=== PATIENT | female | born 1955 | race Caucasian/White ===

== ENCOUNTER 2018-11-06 13:55 | Emergency (ER) | payer MEDICAID ==
[~2018-11-06] VITALS: Ht 147.3 cm; Wt 73.0 kg
[~2018-11-06 13:55] MED LIST: ATOR20TA PO; BENA40TA73 PO; CINN500C15 PO; CLOP75TA15 PO; DILT120C88 PO; FENO160T PO; GLIP2.5T3 PO; INSU100V12 SQ; LIDOcaine 1% W/epiNEPHrine 1:100,000 20ml vial ONE; LOSA25TA96 PO; METF500T PO; METO100T7 PO; MULT1TAB74 PO; ROPI1TAB2 PO; ROPI1TAB4 PO; SYN0.025T PO; THALITONE PO; TRAM50TA2 PO; VENL75CA55 PO
[2018-11-06] MEDS ORDERED: DOXYCYCLINE 100MG CAPSULE PO STA (14:33)
[2018-11-06] MEDS ORDERED: ondansetron 4mg rapidly disintigrating tab PO ONE (14:35)
[2018-11-06 15:18] VITALS: BP 136/81
[2018-11-06] MEDS ORDERED: bacitracin 15gm ointment TP ONE (15:50)
[2018-11-06] MEDS ORDERED: DOXY100C43 PO (16:05)
[2018-11-06] MEDS ORDERED: ONDA8TAB6 PO (16:05)
== END 2018-11-06 16:18 | disposition home or self-care (01) ==
LOC: ER 13:56
DX: L08.89 Other specified local infections of the skin and subcutaneous tissue (principal); M79.674 Pain in right toe(s); I10 Essential (primary) hypertension; J44.9 Chronic obstructive pulmonary disease, unspecified; E11.9 Type 2 diabetes mellitus without complications; E03.9 Hypothyroidism, unspecified; M10.9 Gout, unspecified; Z86.73 Personal history of transient ischemic attack (TIA), and cerebral infarction without residual deficits; Z90.89 Acquired absence of other organs; Z88.2 Allergy status to sulfonamides; Z79.899 Other long term (current) drug therapy; Z79.4 Long term (current) use of insulin
CPT/HCPCS: 64450; 82948; 87070; 87077; 87186; 99284

== ENCOUNTER 2018-11-24 15:47 | Inpatient (IN) | payer MEDICAID ==
[~2018-11-24] VITALS: Ht 147.3 cm; Wt 72.3 kg
[~2018-11-24 15:47] MED LIST changes: -LIDOcaine 1% W/epiNEPHrine 1:100,000 20ml vial ONE; +ONDA8TAB6 PO
[2018-11-24 17:23] LABS: CLARITY,URINE SLIGHTLY CLOUDY (Clear); COLOR,URINE YELLOW (Yellow); GLUCOSE, URINE 500 mg/dl (Neg); KETONES,URINE NEGATIVE (Neg); LEUKOCYTE ESTERASE ,URINE NEGATIVE (Neg); NITRITES, URINE NEGATIVE (Neg); OCCULT BLOOD,URINE MODERATE (Neg); PROTEIN,URINE 100 mg/dl (Neg); UROBILINOGEN,URINE 0.2 E.U/dL (0.2-1.0)
[2018-11-24 17:24] LABS: UA COLLECTION TYPE CLN CATCH MIDSTREAM
[2018-11-24 17:36] LABS: BACTERIA,URINE FEW /HPF (Neg); SQUAMOUS EPITHELIAL CELL,UR MODERATE /LPF (FEW)
[2018-11-24 17:37] LABS: WBC CLUMPS,URINE FEW /HPF (NEGATIVE)
[2018-11-24 17:52] LABS: BASOPHILS % (AUTO) 0.6 % (0-1); EOSINOPHILS # (AUTO) 0.1 X10'3 (0-0.9); EOSINOPHILS % (AUTO) 1.2 % (0-6); HEMATOCRIT 37.5 % (35.0-45.0); HEMOGLOBIN 12.7 g/dl (12.0-16.0); LYMPHOCYTES # (AUTO) 2.6 X10'3 (1.1-4.8); LYMPHOCYTES % (AUTO) 29.8 % (21-51); MEAN CORPUSCULAR HEMOGLOBIN 31.7 PG (27.0-31.0); MEAN CORPUSCULAR VOLUME 93.3 FL (78-98); MEAN PLATELET VOLUME 9.1 FL (7.4-10.4); MONOCYTES # (AUTO) 0.5 X10'3 (0-0.9); MONOCYTES % (AUTO) 5.4 % (2-12); NEUTROPHILS # (AUTO) 5.5 X10'3 (1.8-7.7); PLATELET COUNT 234 X10'3 (140-440); RED BLOOD COUNT 4.02 X10'6 (4.20-5.60); RED CELL DISTRIBUTION WIDTH 13.7 % (11.5-14.5); WHITE BLOOD COUNT 8.7 X10'3 (4.5-11.0)
[2018-11-24 18:03] LABS: PARTIAL THROMBOPLASTIN TIME 24 SECONDS (22-32)
[2018-11-24 18:09] LABS: ALANINE AMINOTRANSFERASE 22 U/L (12-78); ALBUMIN 3.1 G/DL (3.4-5.0); ALBUMIN/GLOBULIN RATIO 0.9 (1.1-1.5); ALKALINE PHOSPHATASE 80 IU/L (46-116); ANION GAP 11 (8-16); ASPARTATE AMINO TRANSFERASE 13 U/L (10-37); BILIRUBIN,TOTAL 0.2 MG/DL (0.1-1.0); BLOOD UREA NITROGEN 40 MG/DL (7-18); C-REACTIVE PROTEIN 0.75 MG/DL (0.0-0.5); CALCIUM 10.2 MG/DL (8.5-10.1); CHLORIDE 108 MMOL/L (99-107); GLUCOSE 238 MG/DL (70-104); MAGNESIUM 1.9 MG/DL (1.5-2.4); POTASSIUM 4.3 MMOL/L (3.5-5.1); SODIUM 142 MMOL/L (135-145); TOTAL CARBON DIOXIDE 22.9 MMOL/L (24-32); TOTAL PROTEIN 6.5 G/DL (6.4-8.2); eGFR 19 ML/MIN
[2018-11-24] MEDS ORDERED: METO100T7 PO (19:17)
[2018-11-24] MEDS ORDERED: FENO160T9 PO (19:17)
[2018-11-24] MEDS ORDERED: GLIP5TAB13 PO (19:17)
[2018-11-24] MEDS ORDERED: PREG150C PO (19:17)
[2018-11-24] MEDS ORDERED: LIRA0.6P SQ (19:17)
[2018-11-24] MEDS ORDERED: CLOP75TA15 PO (19:17)
[2018-11-24] MEDS ORDERED: ALEN70TA60 PO (19:17)
[2018-11-24] MEDS ORDERED: LOSA25TA96 PO (19:17)
[2018-11-24] MEDS ORDERED: ATOR40TA PO (19:22)
[2018-11-24] MEDS ORDERED: LEVO25TA2 PO (19:22)
[2018-11-24] MEDS ORDERED: VENL75CA55 PO (19:22)
[2018-11-24] MEDS ORDERED: vancomycin/NS 1 GM ADD-VANTAGE 250 ML IV ONE (19:30)
[2018-11-24] MEDS ORDERED: piperacillin/tazo 3.375gm/50ml 50 ML IV ONE (19:30)
[2018-11-24] MEDS ORDERED: VENL75CA61 PO (19:31)
[2018-11-24] MEDS ORDERED: ondansetron/PF 4mg/2ml inj IV PRN (20:00)
[2018-11-24] MEDS ORDERED: magnesium hydroxide 30ml (MOM) UD suspension PO PRN (20:00)
[2018-11-24] MEDS ORDERED: MESSAGE TO PHARMACY PO ONE (20:00)
[2018-11-24] MEDS ORDERED: mag hydrox/Alum hydrox/simeth 30ml oral suspension PO PRN (20:00)
[2018-11-24] MEDS ORDERED: dextrose ORAL solution 15 GM/59 ML bottle PO PRN ×2 (20:00)
[2018-11-24] MEDS ORDERED: glucagon, human recombinant 1mg kit SUBCUT PRN (20:00)
[2018-11-24] MEDS ORDERED: morphine 2 MG/ML inj. syringe IV PRN ×2 (20:00)
[2018-11-24] MEDS ORDERED: acetaminophen 325mg tablet PO PRN (20:00)
[2018-11-24] MEDS ORDERED: dextrose 50%-water 50ml dispensing syringe IV PRN ×2 (20:00)
[2018-11-24 20:23] LABS: HEMOGLOBIN A1C 9.5 % (4.5-6.2)
[2018-11-24] MEDS: normal saline 1000ml 1,000 ML IV SCH (20:34)
[2018-11-24] MEDS: heparin, porcine 5000 units/ml vial SQ SCH (20:44)
[2018-11-24] MEDS: HYDROcodone/acetaminophen 10/325mg tab PO PRN (20:45)
[2018-11-24] MEDS: insulin glargine (Lantus) pen - multi-dose SQ SCH (21:00)
--- NOTE | 2018-11-24 21:50 | NUR ---
I have received report from Rosa ESPINOZA and had the opportunity to ask questions and assume patient care.
[2018-11-24 21:55] VITALS: BP 146/72
[2018-11-25 06:14] LABS: BASOPHILS % (AUTO) 0.4 % (0-1); EOSINOPHILS # (AUTO) 0.1 X10'3 (0-0.9); EOSINOPHILS % (AUTO) 1.8 % (0-6); HEMATOCRIT 36.7 % (35.0-45.0); HEMOGLOBIN 12.5 g/dl (12.0-16.0); LYMPHOCYTES # (AUTO) 2.3 X10'3 (1.1-4.8); LYMPHOCYTES % (AUTO) 36.1 % (21-51); MEAN CORPUSCULAR HEMOGLOBIN 32.1 PG (27.0-31.0); MEAN CORPUSCULAR VOLUME 94.2 FL (78-98); MEAN PLATELET VOLUME 9.2 FL (7.4-10.4); MONOCYTES # (AUTO) 0.4 X10'3 (0-0.9); MONOCYTES % (AUTO) 6.5 % (2-12); NEUTROPHILS # (AUTO) 3.5 X10'3 (1.8-7.7); NEUTROPHILS % (AUTO) 55.2 % (42-75); PLATELET COUNT 202 X10'3 (140-440); RED BLOOD COUNT 3.89 X10'6 (4.20-5.60); RED CELL DISTRIBUTION WIDTH 13.8 % (11.5-14.5); WHITE BLOOD COUNT 6.3 X10'3 (4.5-11.0)
--- NOTE | 2018-11-25 06:20 | NUR ---
Problems reprioritized. Patient report given, questions answered & plan of care reviewed with Cecilia ESPINOZA.
[2018-11-25 06:43] LABS: ALANINE AMINOTRANSFERASE 19 U/L (12-78); ALBUMIN 2.7 G/DL (3.4-5.0); ALBUMIN/GLOBULIN RATIO 0.8 (1.1-1.5); ALKALINE PHOSPHATASE 70 IU/L (46-116); ANION GAP 9 (8-16); ASPARTATE AMINO TRANSFERASE 18 U/L (10-37); BILIRUBIN,TOTAL 0.3 MG/DL (0.1-1.0); BLOOD UREA NITROGEN 37 MG/DL (7-18); BUN/CREATININE RATIO 18.7 (6.6-38.0); CALCIUM 9.7 MG/DL (8.5-10.1); CHLORIDE 110 MMOL/L (99-107); CREATININE 1.98 MG/DL (0.40-0.90); GLUCOSE 251 MG/DL (70-104); POTASSIUM 4.5 MMOL/L (3.5-5.1); SODIUM 141 MMOL/L (135-145); TOTAL CARBON DIOXIDE 22.4 MMOL/L (24-32); TOTAL PROTEIN 5.9 G/DL (6.4-8.2); eGFR 25 ML/MIN
[2018-11-25 06:52] VITALS: BP 116/62
[2018-11-25] MEDS: normal saline 1000ml 1,000 ML IV SCH (06:56)
[2018-11-25] MEDS: pregabalin 75mg capsule PO SCH (07:43)
[2018-11-25] MEDS: atorvastatin 20mg tablet PO SCH (07:43)
[2018-11-25] MEDS: piperacillin/tazo 3.375gm/50ml 50 ML IV SCH ×2 (07:43→21:24)
[2018-11-25] MEDS: clopidogrel 75mg tablet PO SCH (07:44)
[2018-11-25] MEDS: fenofibrate 145mg tablet PO SCH (07:44)
[2018-11-25] MEDS: venlafaxine XR 75mg capsule (Q24H) PO SCH (07:44)
[2018-11-25] MEDS: heparin, porcine 5000 units/ml vial SQ SCH ×2 (07:44→19:11)
[2018-11-25] MEDS: levoTHYROXINE 25mcg tablet PO SCH (07:44)
[2018-11-25] MEDS: metoprolol succinate 25mg (24-HOUR) SR. Tablet PO SCH (07:44)
[2018-11-25 10:33] VITALS: BP 163/79
--- NOTE | 2018-11-25 11:46 | NUR ---
DM Consult: A1C 9.5. Pt admit w/ necrotic tip of toe hx T2DM, HTN, neuropathy, and recently quit smoking per EMR. Pt seen by RD for written/verbal DM ed w/ RD contact information provided. RD encouraged pt to attend CDE course and find double end tenoner operator if able. Pt PO 100% meals meeting needs. LBM 11/24. Will continue to monitor. Rec: 1. continue carb controlled/heart healthy diet per MD 2. wt per rx Addendum: 11/25/18 at [address] Amended: Links added.
[2018-11-25] MEDS: insulin Lispro (HumaLOG) vial - multi-dose SQ SCH ×2 (14:00→19:15)
[2018-11-25] MEDS: HYDROcodone/acetaminophen 10/325mg tab PO PRN (17:50)
[2018-11-25 18:00] VITALS: BP 165/77
--- NOTE | 2018-11-25 18:05 | NUR ---
Patient in room ORTHO 4014. I have received report from Cecilia ESPINOZA and had the opportunity to ask questions and assume patient care.
[2018-11-25] MEDS: lactobacillus rhamnosus 10,000 MMU CELLS/CAPSULE PO SCH (19:09)
[2018-11-25] MEDS: vancomycin/NS 1 GM ADD-VANTAGE 250 ML IV SCH (19:09)
[2018-11-25] MEDS: insulin glargine (Lantus) pen - multi-dose SQ SCH (21:27)
[2018-11-25 22:00] VITALS: BP 149/72
[2018-11-26 06:00] VITALS: BP 168/78
[2018-11-26 06:09] LABS: BASOPHILS % (AUTO) 0.3 % (0-1); EOSINOPHILS # (AUTO) 0.1 X10'3 (0-0.9); EOSINOPHILS % (AUTO) 1.8 % (0-6); HEMOGLOBIN 12.7 g/dl (12.0-16.0); LYMPHOCYTES # (AUTO) 1.7 X10'3 (1.1-4.8); LYMPHOCYTES % (AUTO) 22.9 % (21-51); MEAN CORPUSCULAR HEMOGLOBIN 31.8 PG (27.0-31.0); MEAN CORPUSCULAR HGB CONC 34.3 g/dL (33.0-36.5); MEAN CORPUSCULAR VOLUME 92.9 FL (78-98); MEAN PLATELET VOLUME 9.4 FL (7.4-10.4); MONOCYTES # (AUTO) 0.4 X10'3 (0-0.9); MONOCYTES % (AUTO) 5.4 % (2-12); NEUTROPHILS # (AUTO) 5.2 X10'3 (1.8-7.7); NEUTROPHILS % (AUTO) 69.6 % (42-75); PLATELET COUNT 193 X10'3 (140-440); RED BLOOD COUNT 3.98 X10'6 (4.20-5.60); RED CELL DISTRIBUTION WIDTH 13.7 % (11.5-14.5); WHITE BLOOD COUNT 7.4 X10'3 (4.5-11.0)
[2018-11-26 06:23] LABS: ALBUMIN 2.8 G/DL (3.4-5.0); ANION GAP 7 (8-16); BLOOD UREA NITROGEN 28 MG/DL (7-18); BUN/CREATININE RATIO 17.9 (6.6-38.0); CALCIUM 9.9 MG/DL (8.5-10.1); CHLORIDE 108 MMOL/L (99-107); CREATININE 1.56 MG/DL (0.40-0.90); GLUCOSE 185 MG/DL (70-104); POTASSIUM 4.2 MMOL/L (3.5-5.1); SODIUM 138 MMOL/L (135-145); TOTAL CARBON DIOXIDE 22.6 MMOL/L (24-32); eGFR 33 ML/MIN
--- NOTE | 2018-11-26 06:36 | NUR ---
Problems reprioritized. Patient report given, questions answered & plan of care reviewed with Socorro ESPINOZA and Ann YODER.
[2018-11-26] MEDS: lactobacillus rhamnosus 10,000 MMU CELLS/CAPSULE PO SCH ×2 (08:27→19:46)
[2018-11-26] MEDS: atorvastatin 20mg tablet PO SCH (08:28)
[2018-11-26] MEDS: pregabalin 75mg capsule PO SCH (08:28)
[2018-11-26] MEDS: venlafaxine XR 75mg capsule (Q24H) PO SCH (08:28)
[2018-11-26] MEDS: levoTHYROXINE 25mcg tablet PO SCH (08:28)
[2018-11-26] MEDS: clopidogrel 75mg tablet PO SCH (08:28)
[2018-11-26] MEDS: metoprolol succinate 25mg (24-HOUR) SR. Tablet PO SCH (08:29)
[2018-11-26] MEDS: heparin, porcine 5000 units/ml vial SQ SCH ×2 (08:31→19:47)
[2018-11-26] MEDS: fenofibrate 145mg tablet PO SCH (08:31)
[2018-11-26] MEDS: piperacillin/tazo 3.375gm/50ml 50 ML IV SCH ×2 (08:32→21:42)
[2018-11-26] MEDS: HYDROcodone/acetaminophen 10/325mg tab PO PRN ×2 (08:32→19:02)
[2018-11-26] MEDS: insulin Lispro (HumaLOG) vial - multi-dose SQ SCH ×3 (09:07→18:58)
[2018-11-26 10:00] VITALS: BP 154/74
[2018-11-26 18:00] VITALS: BP 141/75
[2018-11-26] MEDS: vancomycin/NS 1 GM ADD-VANTAGE 250 ML IV SCH (19:46)
[2018-11-26] MEDS: insulin glargine (Lantus) pen - multi-dose SQ SCH (21:50)
[2018-11-26 22:00] VITALS: BP 141/75
[2018-11-27 06:00] VITALS: BP 151/74
[2018-11-27 06:00] LABS: BASOPHILS % (AUTO) 0.4 % (0-1); EOSINOPHILS # (AUTO) 0.2 X10'3 (0-0.9); EOSINOPHILS % (AUTO) 2.3 % (0-6); HEMATOCRIT 36.8 % (35.0-45.0); HEMOGLOBIN 12.5 g/dl (12.0-16.0); LYMPHOCYTES # (AUTO) 1.7 X10'3 (1.1-4.8); MEAN CORPUSCULAR HEMOGLOBIN 31.5 PG (27.0-31.0); MEAN CORPUSCULAR HGB CONC 34.1 g/dL (33.0-36.5); MEAN CORPUSCULAR VOLUME 92.5 FL (78-98); MEAN PLATELET VOLUME 8.9 FL (7.4-10.4); MONOCYTES # (AUTO) 0.4 X10'3 (0-0.9); MONOCYTES % (AUTO) 6.2 % (2-12); NEUTROPHILS # (AUTO) 4.3 X10'3 (1.8-7.7); NEUTROPHILS % (AUTO) 65.1 % (42-75); PLATELET COUNT 216 X10'3 (140-440); RED BLOOD COUNT 3.98 X10'6 (4.20-5.60); RED CELL DISTRIBUTION WIDTH 13.6 % (11.5-14.5); WHITE BLOOD COUNT 6.7 X10'3 (4.5-11.0)
--- NOTE | 2018-11-27 06:30 | NUR ---
Problems reprioritized. Patient report given, questions answered & plan of care reviewed with OLGA Quintanilla.
[2018-11-27 07:23] LABS: ALBUMIN 2.7 G/DL (3.4-5.0); ANION GAP 9 (8-16); BLOOD UREA NITROGEN 27 MG/DL (7-18); BUN/CREATININE RATIO 15.4 (6.6-38.0); CALCIUM 10.2 MG/DL (8.5-10.1); CHLORIDE 108 MMOL/L (99-107); CREATININE 1.75 MG/DL (0.40-0.90); GLUCOSE 167 MG/DL (70-104); POTASSIUM 4.5 MMOL/L (3.5-5.1); SODIUM 141 MMOL/L (135-145); TOTAL CARBON DIOXIDE 23.6 MMOL/L (24-32); eGFR 29 ML/MIN
[2018-11-27] MEDS: venlafaxine XR 75mg capsule (Q24H) PO SCH (08:57)
[2018-11-27] MEDS: lactobacillus rhamnosus 10,000 MMU CELLS/CAPSULE PO SCH ×2 (08:57→19:12)
[2018-11-27] MEDS: piperacillin/tazo 3.375gm/50ml 50 ML IV SCH ×2 (08:57→20:44)
[2018-11-27] MEDS: clopidogrel 75mg tablet PO SCH (08:58)
[2018-11-27] MEDS: pregabalin 75mg capsule PO SCH (08:58)
[2018-11-27] MEDS: levoTHYROXINE 25mcg tablet PO SCH (08:58)
[2018-11-27] MEDS: atorvastatin 20mg tablet PO SCH (08:58)
[2018-11-27] MEDS: metoprolol succinate 25mg (24-HOUR) SR. Tablet PO SCH (09:00)
[2018-11-27] MEDS: heparin, porcine 5000 units/ml vial SQ SCH ×2 (09:02→19:13)
[2018-11-27] MEDS: fenofibrate 145mg tablet PO SCH (09:02)
[2018-11-27] MEDS: HYDROcodone/acetaminophen 10/325mg tab PO PRN ×2 (09:04→19:24)
[2018-11-27] MEDS: insulin Lispro (HumaLOG) vial - multi-dose SQ SCH ×3 (09:05→19:11)
[2018-11-27 10:00] VITALS: BP 123/70
[2018-11-27] MEDS: normal saline 1000ml 1,000 ML IV SCH (14:40)
[2018-11-27 18:00] VITALS: BP 164/78
--- NOTE | 2018-11-27 19:00 | NUR ---
Received report from Lyndsey ESPINOZA. Assumed care of patient.
[2018-11-27] MEDS: vancomycin/NS 1 GM ADD-VANTAGE 250 ML IV SCH (19:17)
[2018-11-27] MEDS ORDERED: VANCOMYCIN LEVEL IV ONE (19:30)
[2018-11-27] MEDS: insulin glargine (Lantus) pen - multi-dose SQ SCH (20:52)
[2018-11-27 22:00] VITALS: BP 131/73
[2018-11-28] MEDS: normal saline 1000ml 1,000 ML IV SCH ×3 (00:25→19:24)
[2018-11-28 06:10] VITALS: BP 165/84
--- NOTE | 2018-11-28 06:36 | NUR ---
Gave report to Precious ESPINOZA.
[2018-11-28 06:55] LABS: BASOPHILS % (AUTO) 0.4 % (0-1); EOSINOPHILS # (AUTO) 0.2 X10'3 (0-0.9); EOSINOPHILS % (AUTO) 2.7 % (0-6); HEMATOCRIT 36.1 % (35.0-45.0); HEMOGLOBIN 12.4 g/dl (12.0-16.0); LYMPHOCYTES # (AUTO) 1.8 X10'3 (1.1-4.8); LYMPHOCYTES % (AUTO) 29.7 % (21-51); MEAN CORPUSCULAR HEMOGLOBIN 31.7 PG (27.0-31.0); MEAN CORPUSCULAR HGB CONC 34.4 g/dL (33.0-36.5); MEAN CORPUSCULAR VOLUME 92.2 FL (78-98); MONOCYTES # (AUTO) 0.5 X10'3 (0-0.9); MONOCYTES % (AUTO) 8.1 % (2-12); NEUTROPHILS # (AUTO) 3.5 X10'3 (1.8-7.7); NEUTROPHILS % (AUTO) 59.1 % (42-75); PLATELET COUNT 204 X10'3 (140-440); RED BLOOD COUNT 3.91 X10'6 (4.20-5.60); RED CELL DISTRIBUTION WIDTH 13.7 % (11.5-14.5); WHITE BLOOD COUNT 5.9 X10'3 (4.5-11.0)
[2018-11-28 06:59] LABS: ALBUMIN 2.7 G/DL (3.4-5.0); ANION GAP 7 (8-16); BLOOD UREA NITROGEN 26 MG/DL (7-18); BUN/CREATININE RATIO 15.6 (6.6-38.0); CALCIUM 10.1 MG/DL (8.5-10.1); CHLORIDE 110 MMOL/L (99-107); CREATININE 1.67 MG/DL (0.40-0.90); GLUCOSE 136 MG/DL (70-104); POTASSIUM 4.6 MMOL/L (3.5-5.1); SODIUM 142 MMOL/L (135-145); TOTAL CARBON DIOXIDE 25.4 MMOL/L (24-32); eGFR 31 ML/MIN
[2018-11-28] MEDS: heparin, porcine 5000 units/ml vial SQ SCH ×2 (08:29→19:24)
[2018-11-28] MEDS: levoTHYROXINE 25mcg tablet PO SCH (08:33)
[2018-11-28] MEDS: fenofibrate 145mg tablet PO SCH (08:33)
[2018-11-28] MEDS: lactobacillus rhamnosus 10,000 MMU CELLS/CAPSULE PO SCH ×2 (08:33→19:22)
[2018-11-28] MEDS: piperacillin/tazo 3.375gm/50ml 50 ML IV SCH (08:33)
[2018-11-28] MEDS: clopidogrel 75mg tablet PO SCH (08:33)
[2018-11-28] MEDS: pregabalin 75mg capsule PO SCH (08:33)
[2018-11-28] MEDS: atorvastatin 20mg tablet PO SCH (08:34)
[2018-11-28] MEDS: venlafaxine XR 75mg capsule (Q24H) PO SCH (08:34)
[2018-11-28] MEDS: metoprolol succinate 25mg (24-HOUR) SR. Tablet PO SCH (08:34)
[2018-11-28] MEDS: HYDROcodone/acetaminophen 10/325mg tab PO PRN (08:46)
[2018-11-28] MEDS: insulin Lispro (HumaLOG) vial - multi-dose SQ SCH ×3 (08:54→19:31)
[2018-11-28 10:00] VITALS: BP 146/70
--- NOTE | 2018-11-28 18:04 | NUR ---
patient report given to Elysia ESPINOZA
--- NOTE | 2018-11-28 18:15 | NUR ---
received report from Precious ESPINOZA; assumed care of pt.
--- NOTE | 2018-11-28 18:15 | NUR ---
Received report from Precious ESPINOZA with Aide ESPINOZA. assumed care of patient.
[2018-11-28 19:01] VITALS: BP 141/76
[2018-11-28] MEDS: vancomycin/NS 1 GM ADD-VANTAGE 250 ML IV SCH (19:22)
[2018-11-28] MEDS: insulin glargine (Lantus) pen - multi-dose SQ SCH (21:04)
[2018-11-28 22:00] VITALS: BP 155/72
[2018-11-29] MEDS: HYDROcodone/acetaminophen 5mg/325mg tablet PO PRN (05:49)
[2018-11-29 06:00] VITALS: BP 185/64
--- NOTE | 2018-11-29 06:00 | NUR ---
In agreement with and have reviewed all charting and med pass completed by Aide ESPINOZA for the shift time frame.
--- NOTE | 2018-11-29 06:00 | NUR ---
Patient in room ORTHO 4014. I have received report from JANY ESPINOZA and had the opportunity to ask questions and assume patient care.
--- NOTE | 2018-11-29 06:00 | NUR ---
Gave report to Ham ESPINOZA.
[2018-11-29 06:14] LABS: BASOPHILS % (AUTO) 0.4 % (0-1); EOSINOPHILS # (AUTO) 0.2 X10'3 (0-0.9); EOSINOPHILS % (AUTO) 2.2 % (0-6); HEMATOCRIT 37.6 % (35.0-45.0); HEMOGLOBIN 12.9 g/dl (12.0-16.0); LYMPHOCYTES # (AUTO) 1.7 X10'3 (1.1-4.8); LYMPHOCYTES % (AUTO) 25.2 % (21-51); MEAN CORPUSCULAR HEMOGLOBIN 32.2 PG (27.0-31.0); MEAN CORPUSCULAR HGB CONC 34.4 g/dL (33.0-36.5); MEAN CORPUSCULAR VOLUME 93.6 FL (78-98); MEAN PLATELET VOLUME 9.3 FL (7.4-10.4); MONOCYTES # (AUTO) 0.4 X10'3 (0-0.9); NEUTROPHILS # (AUTO) 4.6 X10'3 (1.8-7.7); NEUTROPHILS % (AUTO) 66.2 % (42-75); PLATELET COUNT 231 X10'3 (140-440); RED BLOOD COUNT 4.01 X10'6 (4.20-5.60); RED CELL DISTRIBUTION WIDTH 13.8 % (11.5-14.5)
--- NOTE | 2018-11-29 06:19 | NUR ---
report received from OLGA Naidu
[2018-11-29] MEDS: normal saline 1000ml 1,000 ML IV SCH ×3 (06:25→16:06)
[2018-11-29] MEDS: lactobacillus rhamnosus 10,000 MMU CELLS/CAPSULE PO SCH ×2 (07:13→19:15)
[2018-11-29] MEDS: venlafaxine XR 75mg capsule (Q24H) PO SCH (07:13)
[2018-11-29] MEDS: clopidogrel 75mg tablet PO SCH (07:14)
[2018-11-29] MEDS: pregabalin 75mg capsule PO SCH (07:14)
[2018-11-29] MEDS: atorvastatin 20mg tablet PO SCH (07:14)
[2018-11-29] MEDS: heparin, porcine 5000 units/ml vial SQ SCH ×2 (07:15→19:15)
[2018-11-29] MEDS: fenofibrate 145mg tablet PO SCH (07:15)
[2018-11-29] MEDS: metoprolol succinate 25mg (24-HOUR) SR. Tablet PO SCH (07:16)
[2018-11-29] MEDS: levoTHYROXINE 25mcg tablet PO SCH (07:16)
[2018-11-29 07:37] LABS: ALBUMIN 3.1 G/DL (3.4-5.0); ANION GAP 11 (8-16); BLOOD UREA NITROGEN 21 MG/DL (7-18); BUN/CREATININE RATIO 13.3 (6.6-38.0); CALCIUM 9.4 MG/DL (8.5-10.1); CHLORIDE 109 MMOL/L (99-107); CREATININE 1.58 MG/DL (0.40-0.90); GLUCOSE 135 MG/DL (70-104); POTASSIUM 4.4 MMOL/L (3.5-5.1); SODIUM 142 MMOL/L (135-145); TOTAL CARBON DIOXIDE 21.8 MMOL/L (24-32); eGFR 33 ML/MIN
[2018-11-29] MEDS: insulin Lispro (HumaLOG) vial - multi-dose SQ SCH ×4 (08:44→20:43)
[2018-11-29 10:00] VITALS: BP 129/75
[2018-11-29] MEDS ORDERED: iohexol 350 MG/ML 50ML vial IV ONE (11:16)
[2018-11-29] MEDS ORDERED: iohexol 350MG/ML 100ml bottle IV ONE (11:16)
--- NOTE | 2018-11-29 11:30 | NUR ---
pt down to CT
--- NOTE | 2018-11-29 11:57 | NUR ---
pt back from CT.
[2018-11-29] MEDS ORDERED: metoprolol tartrate 1mg/ml inj IV PRN (15:40)
[2018-11-29] MEDS ORDERED: nitroGLYCERIN 0.4mg SUBLingual tab SL PRN (15:40)
[2018-11-29] MEDS ORDERED: regadenoson 0.4mg/5ml syringe IV PRN (15:40)
[2018-11-29] MEDS ORDERED: aminophylline 250mg/10ml inj. IV PRN (15:40)
[2018-11-29 18:00] VITALS: BP 155/80
--- NOTE | 2018-11-29 18:00 | NUR ---
Problems reprioritized. Patient report given, questions answered & plan of care reviewed with JANY RN.
--- NOTE | 2018-11-29 18:13 | NUR ---
Student Medication Administration: For this medication-pass time frame, all medication were reviewed, dispensed, administered and documented per hospital policy by GURWINDER YODER.
--- NOTE | 2018-11-29 18:13 | NUR ---
Student documentation: I have reviewed and agree with all interventions, assessments performed and documented by GURWINDER YODER.
[2018-11-29] MEDS: HYDROcodone/acetaminophen 10/325mg tab PO PRN (18:15)
--- NOTE | 2018-11-29 18:15 | NUR ---
Received report from Ham ESPINOZA. assumed care of patient.
--- NOTE | 2018-11-29 18:16 | NUR ---
report given to OLGA Naidu. pt nafisa.
[2018-11-29] MEDS: vancomycin/NS 1 GM ADD-VANTAGE 250 ML IV SCH (19:19)
[2018-11-29] MEDS: acetylcysteine 200 MG/ml 4ml vial PO SCH (19:19)
[2018-11-29] MEDS: insulin glargine (Lantus) pen - multi-dose SQ SCH (20:41)
[2018-11-29 22:00] VITALS: BP 145/80
[2018-11-30] VITALS (12 sets, daily range): BP systolic 116–177; BP diastolic 67–83
[2018-11-30] MEDS: normal saline 1000ml 1,000 ML IV SCH ×2 (00:57→08:30)
[2018-11-30] MEDS: HYDROcodone/acetaminophen 10/325mg tab PO PRN ×3 (05:09→21:39)
--- NOTE | 2018-11-30 06:15 | NUR ---
Gave report to Tiffany ESPINOZA.
--- NOTE | 2018-11-30 06:30 | NUR ---
RECEIVED REPORT FROM OLGA CARMICHAEL
--- NOTE | 2018-11-30 07:00 | NUR ---
PT BG IS 115 AND IS NPO AT THIS TIME, THEREFORE PT IS NOT A CANIDATE FOR INSULIN AT THIS TIME, CONTINUE TO MONITOR
[2018-11-30 07:12] LABS: ALBUMIN 2.8 G/DL (3.4-5.0); ANION GAP 9 (8-16); BLOOD UREA NITROGEN 21 MG/DL (7-18); BUN/CREATININE RATIO 13.8 (6.6-38.0); CALCIUM 9.6 MG/DL (8.5-10.1); CHLORIDE 110 MMOL/L (99-107); CREATININE 1.52 MG/DL (0.40-0.90); GLUCOSE 134 MG/DL (70-104); POTASSIUM 4.5 MMOL/L (3.5-5.1); SODIUM 142 MMOL/L (135-145); TOTAL CARBON DIOXIDE 23.5 MMOL/L (24-32); eGFR 34 ML/MIN
[2018-11-30] MEDS: metoprolol succinate 25mg (24-HOUR) SR. Tablet PO SCH (07:17)
[2018-11-30] MEDS: venlafaxine XR 75mg capsule (Q24H) PO SCH (07:25)
[2018-11-30] MEDS: pregabalin 75mg capsule PO SCH (07:25)
[2018-11-30] MEDS: lactobacillus rhamnosus 10,000 MMU CELLS/CAPSULE PO SCH ×2 (07:25→20:15)
[2018-11-30] MEDS: clopidogrel 75mg tablet PO SCH (07:26)
[2018-11-30] MEDS: atorvastatin 20mg tablet PO SCH (07:26)
[2018-11-30] MEDS: levoTHYROXINE 25mcg tablet PO SCH (07:26)
[2018-11-30] MEDS: heparin, porcine 5000 units/ml vial SQ SCH ×2 (07:28→20:15)
[2018-11-30] MEDS: fenofibrate 145mg tablet PO SCH (07:33)
[2018-11-30] MEDS: acetylcysteine 200 MG/ml 4ml vial PO SCH (08:00)
--- NOTE | 2018-11-30 10:21 | NUR ---
PT IS DOWN AT STRESS LAB
--- NOTE | 2018-11-30 11:54 | NUR ---
reassessment: Pt PO 75-100% meals meeting needs. NPO pending cardiac clearance for fem-pop bypass per MD barbour. R great toe gangrene/cellulitis. LBM 11/29. Will continue to monitor. Rec: 1. continue carb controlled/heart healthy diet per MD 2. wt per rx Addendum: 11/30/18 at [address] Amended: Links added.
--- NOTE | 2018-11-30 12:00 | NUR ---
PT ARRIVED ON FLOOR FROM STRESS TEST
--- NOTE | 2018-11-30 14:00 | NUR ---
PT BG IS 106 AND SHE LESS THAN 25% OF HER LUNCH TRAY, EVEN THOUGH PT HAS MET PROTOCOL FOR TX OF BG PT IS NOT A CANDIDATE FOR INSULIN AT THIS TIME, CONTINUE TO MONITOR
[2018-11-30] MEDS ORDERED: ceFAZolin 1GM/D5W- ADD-VANTAGE 50 ML IV SCH (16:00)
--- NOTE | 2018-11-30 18:09 | NUR ---
GAVE REPORT TO OLGA MORGAN
[2018-11-30] MEDS: insulin Lispro (HumaLOG) vial - multi-dose SQ SCH (19:54)
[2018-11-30] MEDS: vancomycin/NS 1 GM ADD-VANTAGE 250 ML IV SCH (20:16)
[2018-11-30] MEDS: insulin glargine (Lantus) pen - multi-dose SQ SCH (21:14)
[2018-12-01] MEDS: normal saline 1000ml 1,000 ML IV SCH ×3 (00:44→17:22)
[2018-12-01 06:00] VITALS: BP 137/96
--- NOTE | 2018-12-01 06:00 | NUR ---
Patient in room ORTHO 4014. I have received report from OLGA Graf and OLGA Lomeli and had the opportunity to ask questions and assume patient care. Addendum: 12/01/18 at 0650 by Samantha Garrett RN Amended: Links added.
--- NOTE | 2018-12-01 06:19 | NUR ---
REPORT GIVEN TO OLGA FERRO.
[2018-12-01 07:15] LABS: ALBUMIN 3.1 G/DL (3.4-5.0); ANION GAP 11 (8-16); BLOOD UREA NITROGEN 18 MG/DL (7-18); BUN/CREATININE RATIO 11.2 (6.6-38.0); CALCIUM 10.1 MG/DL (8.5-10.1); CHLORIDE 110 MMOL/L (99-107); CREATININE 1.61 MG/DL (0.40-0.90); GLUCOSE 148 MG/DL (70-104); POTASSIUM 3.9 MMOL/L (3.5-5.1); SODIUM 143 MMOL/L (135-145); TOTAL CARBON DIOXIDE 22.4 MMOL/L (24-32); eGFR 32 ML/MIN
[2018-12-01] MEDS: clopidogrel 75mg tablet PO SCH (09:28)
[2018-12-01] MEDS: pregabalin 75mg capsule PO SCH (09:28)
[2018-12-01] MEDS: venlafaxine XR 75mg capsule (Q24H) PO SCH (09:28)
[2018-12-01] MEDS: lactobacillus rhamnosus 10,000 MMU CELLS/CAPSULE PO SCH ×2 (09:28→21:24)
[2018-12-01] MEDS: fenofibrate 145mg tablet PO SCH (09:28)
[2018-12-01] MEDS: levoTHYROXINE 25mcg tablet PO SCH (09:28)
[2018-12-01] MEDS: metoprolol succinate 25mg (24-HOUR) SR. Tablet PO SCH (09:29)
[2018-12-01] MEDS: heparin, porcine 5000 units/ml vial SQ SCH ×2 (09:30→21:25)
[2018-12-01] MEDS: atorvastatin 20mg tablet PO SCH (09:32)
[2018-12-01 09:44] LABS: BASOPHILS % (AUTO) 0.3 % (0-1); EOSINOPHILS # (AUTO) 0.1 X10'3 (0-0.9); EOSINOPHILS % (AUTO) 1.9 % (0-6); HEMOGLOBIN 11.6 g/dl (12.0-16.0); LYMPHOCYTES # (AUTO) 1.2 X10'3 (1.1-4.8); LYMPHOCYTES % (AUTO) 20.3 % (21-51); MEAN CORPUSCULAR HGB CONC 34.2 g/dL (33.0-36.5); MEAN CORPUSCULAR VOLUME 93.4 FL (78-98); MEAN PLATELET VOLUME 9.2 FL (7.4-10.4); MONOCYTES # (AUTO) 0.4 X10'3 (0-0.9); MONOCYTES % (AUTO) 6.4 % (2-12); NEUTROPHILS # (AUTO) 4.3 X10'3 (1.8-7.7); NEUTROPHILS % (AUTO) 71.1 % (42-75); PLATELET COUNT 190 X10'3 (140-440); RED BLOOD COUNT 3.64 X10'6 (4.20-5.60); RED CELL DISTRIBUTION WIDTH 13.6 % (11.5-14.5); WHITE BLOOD COUNT 6.1 X10'3 (4.5-11.0)
[2018-12-01] MEDS: insulin Lispro (HumaLOG) vial - multi-dose SQ SCH ×3 (09:45→18:46)
[2018-12-01 09:53] LABS: ALBUMIN 2.9 G/DL (3.4-5.0); ANION GAP 9 (8-16); BLOOD UREA NITROGEN 17 MG/DL (7-18); BUN/CREATININE RATIO 10.6 (6.6-38.0); CALCIUM 9.2 MG/DL (8.5-10.1); CHLORIDE 111 MMOL/L (99-107); GLUCOSE 181 MG/DL (70-104); POTASSIUM 4.1 MMOL/L (3.5-5.1); SODIUM 142 MMOL/L (135-145); TOTAL CARBON DIOXIDE 22.5 MMOL/L (24-32); eGFR 32 ML/MIN
[2018-12-01 10:00] VITALS: BP 155/78
[2018-12-01] MEDS ORDERED: ringers solution, lacted 1,000 ML IV ONE (16:57)
[2018-12-01 18:00] VITALS: BP 167/67
--- NOTE | 2018-12-01 18:15 | NUR ---
Problems reprioritized. Patient report given, questions answered & plan of care reviewed with OLGA Mathews. Addendum: 12/01/18 at 1816 by Samantha Garrett RN Amended: Links added.
[2018-12-01] MEDS: acetylcysteine 200 MG/ml 4ml vial PO SCH (20:00)
[2018-12-01] MEDS: vancomycin/NS 1 GM ADD-VANTAGE 250 ML IV SCH (21:25)
[2018-12-01] MEDS: insulin glargine (Lantus) pen - multi-dose SQ SCH (21:35)
[2018-12-01] MEDS: HYDROcodone/acetaminophen 10/325mg tab PO PRN (21:54)
[2018-12-01 22:00] VITALS: BP 178/70
[2018-12-02] VITALS (23 sets, daily range): BP systolic 123–216; BP diastolic 54–83
[2018-12-02] MEDS: normal saline 1000ml 1,000 ML IV SCH ×3 (00:25→16:36)
[2018-12-02] MEDS ORDERED: famotidine 20mg tablet PO ONE (06:00)
--- NOTE | 2018-12-02 06:35 | NUR ---
Patient in room CICU 2013. I have received report from OLGA Mathews and had the opportunity to ask questions and assume patient care.
[2018-12-02] MEDS ORDERED: heparin 10,000 units/1 ML INJ ONE (06:57)
[2018-12-02] MEDS ORDERED: iohexol 300 MG/1 ML 50ml polymer ONE (06:58)
[2018-12-02] MEDS ORDERED: OXAZEpam 15mg capsule PO PRN (07:00)
[2018-12-02] MEDS ORDERED: ondansetron/PF 4mg/2ml inj IV PRN ×3 (07:00→13:30)
[2018-12-02] MEDS ORDERED: proCHLORperazine 10 MG/2 ml inj IV PRN (07:00)
--- NOTE | 2018-12-02 07:30 | NUR ---
Pt ready for transfer to surgery. Pt moved to surgery at this time for [address] Wolfe.
[2018-12-02] MEDS ORDERED: propofol inj 20 ML IV ONE (07:42)
[2018-12-02] MEDS ORDERED: rocuronium 10mg/ml inj IV ONE (07:42)
[2018-12-02] MEDS ORDERED: LIDOcaine 2% (20mg/ml) 5ml vial ONE (07:42)
[2018-12-02] MEDS ORDERED: ringers solution, lacted 1,000 ML IV SCH (07:51)
[2018-12-02] MEDS ORDERED: fentaNYL/PF 50MCG/1 ML 2ML syringe IV PRN ×2 (07:55)
[2018-12-02] MEDS ORDERED: morphine 4 MG/ML inj SYRINge IV PRN ×2 (07:55)
[2018-12-02] MEDS ORDERED: labetalol 20mg/4ml (5mg/ml) syringe IV PRN (07:55)
[2018-12-02] MEDS: levoTHYROXINE 25mcg tablet PO SCH (08:00)
[2018-12-02] MEDS: clopidogrel 75mg tablet PO SCH (08:00)
[2018-12-02] MEDS: pregabalin 75mg capsule PO SCH (08:00)
[2018-12-02] MEDS: lactobacillus rhamnosus 10,000 MMU CELLS/CAPSULE PO SCH ×2 (08:00→19:18)
[2018-12-02] MEDS: metoprolol succinate 25mg (24-HOUR) SR. Tablet PO SCH (08:00)
[2018-12-02] MEDS: acetylcysteine 200 MG/ml 4ml vial PO SCH (08:00)
[2018-12-02] MEDS: atorvastatin 20mg tablet PO SCH (08:00)
[2018-12-02] MEDS: venlafaxine XR 75mg capsule (Q24H) PO SCH (08:00)
[2018-12-02] MEDS ORDERED: dexamethasone sod phosphate 10mg/ml inj ONE (08:14)
[2018-12-02] MEDS ORDERED: sevoflurane 250ml liquid IH ONE (08:14)
[2018-12-02] MEDS ORDERED: ondansetron/PF 4mg/2ml inj ONE (08:14)
[2018-12-02] MEDS ORDERED: MIDAZolam 5mg/5ml vial ONE (08:15)
[2018-12-02] MEDS: fenofibrate 145mg tablet PO SCH (08:30)
[2018-12-02] MEDS ORDERED: albumin (Human) 5% 250ml 250 ML IV ONE (08:55)
[2018-12-02] MEDS ORDERED: fentaNYL /PF 50mcg/ml 5ml ampule ONE (08:55)
[2018-12-02] MEDS ORDERED: heparin 1,000unit/ml 10ml vial 10 ML ONE (09:16)
[2018-12-02] MEDS ORDERED: labetalol 20mg/4ml (5mg/ml) syringe IV ONE (09:42)
[2018-12-02] MEDS ORDERED: fentaNYL/PF 50MCG/1 ML 2ML syringe ONE (11:36)
--- NOTE | 2018-12-02 12:10 | NUR ---
Received from OR via BED , accompanied by Anesthesiologist DR ZHU and report given by Anesthesiolgist. PATIENT WAKING UP, DENIES PAIN, V/S WNL EXCEPT B/P IS HTN SEE EMAR FOR MEDS GIVEN, NEUROVASCULAR CHECKS INTACT DOPPLAR PEDAL PULSES TO INTACT. 20G LUE, ART LINE RUE, CL TO RIGHT NECK, F/C DRAINAING CLEAR YELLOW URINE, DRESSING TO RIGHT GROIN AND INNER LEG CDI WITH [place] TO RIGHT GROIN CDI WITH NO LEAKS DETECTED. BG 220- I WILL GIVE 6 UNITS FOPR THIS.
[2018-12-02] MEDS: hydrALAZINE 20mg/ml inj. IV PRN ×6 (12:34→23:18)
[2018-12-02] MEDS ORDERED: insulin regular, human 10 units/0.1 ml syringe IV ONE (12:35)
[2018-12-02] MEDS: Potassium Cl inj 20 MEQ in ringers solution, lacted 1,000 ML IV SCH ×2 (13:30→21:35)
[2018-12-02] MEDS ORDERED: HYDROcodone/acetaminophen 10/325mg tab PO PRN (13:30)
--- NOTE | 2018-12-02 13:40 | NUR ---
PATIENT SLEEPY BUT ORIENTED, DENIES PAIN, V/S WNL, NEUROVASCULAR CHECKS INTACT DOPPLAR PEDAL PULSES TO INTACT. 20G LUE, ART LINE RUE, CL TO RIGHT NECK, F/C DRAINAING CLEAR YELLOW URINE, DRESSING TO RIGHT GROIN AND INNER LEG CDI WITH [place]OVINA W[place] TO RIGHT GROIN CDI WITH NO LEAKS DETECTED. TAKEN TO 2012 WITH ALL BELONGINGS AND HOOKED UP TO MONITORS IN ROOM AND REPORT GIVEN TO CASH APPLICATION CLERK WHO HAS TAKEN OVER PATIENT CARE
[2018-12-02] MEDS ORDERED: ipratropium/albuterol 3ml nebule IH ONE (13:55)
[2018-12-02] MEDS: HYDROmorphone 1 mg/ml syringe IV PRN ×2 (14:52→19:19)
[2018-12-02] MEDS ORDERED: ceFAZolin inj. 1,000 MG in dextrose 5%-water 50ml 50 ML IV SCH (16:00)
[2018-12-02] MEDS: ceFAZolin 1GM/D5W- ADD-VANTAGE 50 ML IV SCH ×2 (16:32→23:20)
[2018-12-02] MEDS: insulin Lispro (HumaLOG) vial - multi-dose SQ SCH ×2 (17:14→21:16)
--- NOTE | 2018-12-02 18:20 | NUR ---
Problems reprioritized. Patient report given, questions answered & plan of care reviewed with Liz ESPIONZA.
--- NOTE | 2018-12-02 18:21 | NUR ---
Patient in room CICU 2012. I have received report from OLGA Heard and had the opportunity to ask questions and assume patient care. Patient is resting comfortably on hospital bed, she is A&O x3 and LAWSON. Family is at the bedside and I will continue to monitor.
[2018-12-02] MEDS: losartan 25mg tablet PO SCH (19:18)
[2018-12-02] MEDS: vancomycin/NS 1 GM ADD-VANTAGE 250 ML IV SCH (19:25)
[2018-12-02] MEDS: insulin glargine (Lantus) pen - multi-dose SQ SCH (21:16)
[2018-12-03] VITALS (24 sets, daily range): BP systolic 125–175; BP diastolic 46–94
[2018-12-03] MEDS: normal saline 1000ml 1,000 ML IV SCH ×2 (00:30→10:41)
[2018-12-03] MEDS: HYDROmorphone 1 mg/ml syringe IV PRN (00:34)
[2018-12-03 03:10] LABS: BASOPHILS % (AUTO) 0.3 % (0-1); EOSINOPHILS % (AUTO) 0 % (0-6); HEMATOCRIT 26.5 % (35.0-45.0); HEMOGLOBIN 9.1 g/dl (12.0-16.0); LYMPHOCYTES # (AUTO) 0.9 X10'3 (1.1-4.8); LYMPHOCYTES % (AUTO) 9.1 % (21-51); MEAN CORPUSCULAR HEMOGLOBIN 32.1 PG (27.0-31.0); MEAN CORPUSCULAR HGB CONC 34.4 g/dL (33.0-36.5); MEAN CORPUSCULAR VOLUME 93.1 FL (78-98); MEAN PLATELET VOLUME 9.5 FL (7.4-10.4); MONOCYTES # (AUTO) 0.8 X10'3 (0-0.9); MONOCYTES % (AUTO) 7.5 % (2-12); NEUTROPHILS # (AUTO) 8.5 X10'3 (1.8-7.7); NEUTROPHILS % (AUTO) 83.1 % (42-75); PLATELET COUNT 208 X10'3 (140-440); RED BLOOD COUNT 2.84 X10'6 (4.20-5.60); RED CELL DISTRIBUTION WIDTH 14.1 % (11.5-14.5); WHITE BLOOD COUNT 10.2 X10'3 (4.5-11.0)
[2018-12-03 03:32] LABS: ALANINE AMINOTRANSFERASE 24 U/L (12-78); ALBUMIN 2.7 G/DL (3.4-5.0); ALKALINE PHOSPHATASE 49 IU/L (46-116); ANION GAP 10 (8-16); ASPARTATE AMINO TRANSFERASE 19 U/L (10-37); BILIRUBIN,TOTAL 0.2 MG/DL (0.1-1.0); BLOOD UREA NITROGEN 19 MG/DL (7-18); BUN/CREATININE RATIO 11.9 (6.6-38.0); CALCIUM 8.9 MG/DL (8.5-10.1); CHLORIDE 113 MMOL/L (99-107); GLUCOSE 189 MG/DL (70-104); SODIUM 143 MMOL/L (135-145); TOTAL CARBON DIOXIDE 20.1 MMOL/L (24-32); TOTAL PROTEIN 5.3 G/DL (6.4-8.2); eGFR 32 ML/MIN
[2018-12-03] MEDS: hydrALAZINE 20mg/ml inj. IV PRN (03:50)
[2018-12-03] MEDS: Potassium Cl inj 20 MEQ in ringers solution, lacted 1,000 ML IV SCH (05:40)
--- NOTE | 2018-12-03 06:15 | NUR ---
Problems reprioritized. Patient report given, questions answered & plan of care reviewed with OLGA Lang.
[2018-12-03] MEDS: venlafaxine XR 75mg capsule (Q24H) PO SCH (07:55)
[2018-12-03] MEDS: losartan 25mg tablet PO SCH (07:57)
[2018-12-03] MEDS: pregabalin 75mg capsule PO SCH (07:58)
[2018-12-03] MEDS: clopidogrel 75mg tablet PO SCH (07:58)
[2018-12-03] MEDS: lactobacillus rhamnosus 10,000 MMU CELLS/CAPSULE PO SCH ×2 (08:00→19:02)
[2018-12-03] MEDS: levoTHYROXINE 25mcg tablet PO SCH (08:01)
[2018-12-03] MEDS: atorvastatin 20mg tablet PO SCH (08:01)
[2018-12-03] MEDS: insulin Lispro (HumaLOG) vial - multi-dose SQ SCH ×4 (08:10→19:04)
[2018-12-03 09:15] LABS: MAGNESIUM 1.5 MG/DL (1.5-2.4)
[2018-12-03] MEDS: metoprolol succinate 25mg (24-HOUR) SR. Tablet PO SCH ×2 (10:36→10:39)
[2018-12-03] MEDS: fenofibrate 145mg tablet PO SCH (10:37)
[2018-12-03] MEDS ORDERED: hydrALAZINE 20mg/ml inj. IV ONE ×2 (11:08→11:20)
[2018-12-03] MEDS ORDERED: losartan 25mg tablet PO ONE (11:45)
[2018-12-03] MEDS: HYDROcodone/acetaminophen 10/325mg tab PO PRN (13:39)
--- NOTE | 2018-12-03 15:10 | NUR ---
Pt. has Right groin swelling noted at beginning of shift. Per last night RN, baseline for pt. post surgery. Assessed again and swelling seems to extend medially across pt.'s labia. Dr. Thomas paged, awaiting response. Dr. Dorsey notified.
--- NOTE | 2018-12-03 18:20 | NUR ---
Patient in room CICU 2012. I have received report from Precious ESPINOZA and had the opportunity to ask questions and assume patient care. Patient sitting up in bed eating dinner, offers no complaints at this time. R groin site assessed with day RN, mild swelling noted to surrounding site (MD aware), R foot warm with good capillary refill. Vitals WNL at this time, will continue to monitor patient.
[2018-12-03] MEDS ORDERED: VANCOMYCIN LEVEL IV ONE (19:30)
[2018-12-03] MEDS: vancomycin/NS 1 GM ADD-VANTAGE 250 ML IV SCH (20:07)
[2018-12-03] MEDS: insulin glargine (Lantus) pen - multi-dose SQ SCH ×2 (20:28→21:01)
[2018-12-04] VITALS (19 sets, daily range): BP systolic 130–170; BP diastolic 56–74
[2018-12-04] MEDS: hydrALAZINE 20mg/ml inj. IV PRN (00:02)
[2018-12-04] MEDS: HYDROcodone/acetaminophen 10/325mg tab PO PRN ×2 (01:03→09:16)
[2018-12-04] MEDS ORDERED: nitroGLYCERIN 1gm ointment UD TP ONE (02:25)
[2018-12-04] MEDS ORDERED: hydrALAZINE 20mg/ml inj. IV ONE (02:25)
--- NOTE | 2018-12-04 02:25 | NUR ---
Patient's BP remains elevated after PRN hydralazine administration, currently at 170/57. Notified Ashvin Estrada NP, new orders received for repeat hydralazine dose now and to apply 1.5 inches of nitro paste to chest. Will administer as ordered.
[2018-12-04 03:36] LABS: BASOPHILS % (AUTO) 0.5 % (0-1); EOSINOPHILS # (AUTO) 0.1 X10'3 (0-0.9); EOSINOPHILS % (AUTO) 1.2 % (0-6); HEMATOCRIT 24.6 % (35.0-45.0); HEMOGLOBIN 8.3 g/dl (12.0-16.0); LYMPHOCYTES # (AUTO) 1.5 X10'3 (1.1-4.8); LYMPHOCYTES % (AUTO) 17.7 % (21-51); MEAN CORPUSCULAR HEMOGLOBIN 31.7 PG (27.0-31.0); MEAN CORPUSCULAR HGB CONC 33.6 g/dL (33.0-36.5); MEAN CORPUSCULAR VOLUME 94.2 FL (78-98); MEAN PLATELET VOLUME 9.2 FL (7.4-10.4); MONOCYTES # (AUTO) 0.8 X10'3 (0-0.9); MONOCYTES % (AUTO) 8.9 % (2-12); NEUTROPHILS # (AUTO) 6.3 X10'3 (1.8-7.7); NEUTROPHILS % (AUTO) 71.7 % (42-75); PLATELET COUNT 169 X10'3 (140-440); RED BLOOD COUNT 2.62 X10'6 (4.20-5.60); RED CELL DISTRIBUTION WIDTH 14.6 % (11.5-14.5); WHITE BLOOD COUNT 8.8 X10'3 (4.5-11.0)
[2018-12-04 03:46] LABS: ALANINE AMINOTRANSFERASE 16 U/L (12-78); ALBUMIN 2.6 G/DL (3.4-5.0); ALKALINE PHOSPHATASE 54 IU/L (46-116); ANION GAP 9 (8-16); ASPARTATE AMINO TRANSFERASE 12 U/L (10-37); BILIRUBIN,TOTAL 0.5 MG/DL (0.1-1.0); BLOOD UREA NITROGEN 20 MG/DL (7-18); BUN/CREATININE RATIO 12.2 (6.6-38.0); CHLORIDE 111 MMOL/L (99-107); CREATININE 1.64 MG/DL (0.40-0.90); GLUCOSE 167 MG/DL (70-104); POTASSIUM 3.7 MMOL/L (3.5-5.1); SODIUM 143 MMOL/L (135-145); TOTAL CARBON DIOXIDE 22.7 MMOL/L (24-32); TOTAL PROTEIN 5.2 G/DL (6.4-8.2); eGFR 32 ML/MIN
--- NOTE | 2018-12-04 06:32 | NUR ---
Problems reprioritized. Patient report given, questions answered & plan of care reviewed with Melina ESPINOZA.
[2018-12-04] MEDS: pregabalin 75mg capsule PO SCH (09:06)
[2018-12-04] MEDS: atorvastatin 20mg tablet PO SCH (09:06)
[2018-12-04] MEDS: venlafaxine XR 75mg capsule (Q24H) PO SCH (09:06)
[2018-12-04] MEDS: clopidogrel 75mg tablet PO SCH (09:07)
[2018-12-04] MEDS: lactobacillus rhamnosus 10,000 MMU CELLS/CAPSULE PO SCH ×2 (09:07→20:38)
[2018-12-04] MEDS: losartan 50mg tablet PO SCH (09:07)
[2018-12-04] MEDS: levoTHYROXINE 25mcg tablet PO SCH (09:07)
[2018-12-04] MEDS: fenofibrate 145mg tablet PO SCH (09:07)
[2018-12-04] MEDS: insulin Lispro (HumaLOG) vial - multi-dose SQ SCH ×2 (10:21→20:45)
--- NOTE | 2018-12-04 17:45 | NUR ---
Pt. bladder scanned- 88 ml in bladder. Pt. states she has not had a hysterectomy.
--- NOTE | 2018-12-04 17:47 | NUR ---
Pt transferred to room 356B per w/c. In stable condition. Report given to Paola (OLGA).
--- NOTE | 2018-12-04 18:55 | NUR ---
Gave report to Daisy Zaidi RN Addendum: 12/04/18 at 1857 by Gabbie Mccormack RN Gave report to Venessa Clifford RN.
--- NOTE | 2018-12-04 18:57 | NUR ---
Patient in room [facility]AT[facility] 356. I have received report from DIDIER ESPINOZA and had the opportunity to ask questions and assume patient care.
[2018-12-04] MEDS: vancomycin/NS 1 GM ADD-VANTAGE 250 ML IV SCH (20:38)
[2018-12-04] MEDS: insulin glargine (Lantus) pen - multi-dose SQ SCH (22:49)
[2018-12-05] VITALS: BP 152/60
[2018-12-05 06:23] LABS: BASOPHILS % (AUTO) 0.4 % (0-1); EOSINOPHILS # (AUTO) 0.1 X10'3 (0-0.9); EOSINOPHILS % (AUTO) 1.5 % (0-6); HEMATOCRIT 24.4 % (35.0-45.0); HEMOGLOBIN 8.4 g/dl (12.0-16.0); LYMPHOCYTES # (AUTO) 1.3 X10'3 (1.1-4.8); MEAN CORPUSCULAR HEMOGLOBIN 32.1 PG (27.0-31.0); MEAN CORPUSCULAR HGB CONC 34.4 g/dL (33.0-36.5); MEAN CORPUSCULAR VOLUME 93.3 FL (78-98); MEAN PLATELET VOLUME 9.7 FL (7.4-10.4); MONOCYTES # (AUTO) 0.7 X10'3 (0-0.9); MONOCYTES % (AUTO) 8.8 % (2-12); NEUTROPHILS # (AUTO) 5.4 X10'3 (1.8-7.7); NEUTROPHILS % (AUTO) 72.3 % (42-75); PLATELET COUNT 168 X10'3 (140-440); RED BLOOD COUNT 2.62 X10'6 (4.20-5.60); RED CELL DISTRIBUTION WIDTH 14.3 % (11.5-14.5); WHITE BLOOD COUNT 7.4 X10'3 (4.5-11.0)
[2018-12-05 06:29] LABS: ALANINE AMINOTRANSFERASE 16 U/L (12-78); ALBUMIN 2.6 G/DL (3.4-5.0); ALBUMIN/GLOBULIN RATIO 0.9 (1.1-1.5); ALKALINE PHOSPHATASE 62 IU/L (46-116); ANION GAP 11 (8-16); ASPARTATE AMINO TRANSFERASE 13 U/L (10-37); BILIRUBIN,TOTAL 0.6 MG/DL (0.1-1.0); BLOOD UREA NITROGEN 20 MG/DL (7-18); BUN/CREATININE RATIO 13.9 (6.6-38.0); CALCIUM 9.4 MG/DL (8.5-10.1); CHLORIDE 109 MMOL/L (99-107); CREATININE 1.44 MG/DL (0.40-0.90); GLUCOSE 175 MG/DL (70-104); POTASSIUM 3.7 MMOL/L (3.5-5.1); SODIUM 143 MMOL/L (135-145); TOTAL CARBON DIOXIDE 22.9 MMOL/L (24-32); TOTAL PROTEIN 5.6 G/DL (6.4-8.2); eGFR 37 ML/MIN
--- NOTE | 2018-12-05 06:34 | NUR ---
Problems reprioritized. Patient report given, questions answered & plan of care reviewed with BYRON ESPINOZA.
--- NOTE | 2018-12-05 06:46 | NUR ---
Patient in room KATELYNN 356. I have received report from Sebastian RN and had the opportunity to ask questions and assume patient care.
[2018-12-05 07:00] VITALS: BP 127/53
[2018-12-05] MEDS: levoTHYROXINE 25mcg tablet PO SCH (07:36)
[2018-12-05] MEDS: lactobacillus rhamnosus 10,000 MMU CELLS/CAPSULE PO SCH ×2 (07:36→20:15)
[2018-12-05] MEDS: clopidogrel 75mg tablet PO SCH (07:36)
[2018-12-05] MEDS: venlafaxine XR 75mg capsule (Q24H) PO SCH (07:36)
[2018-12-05] MEDS: atorvastatin 20mg tablet PO SCH (07:36)
[2018-12-05] MEDS: fenofibrate 145mg tablet PO SCH (07:36)
[2018-12-05] MEDS: losartan 50mg tablet PO SCH (07:36)
[2018-12-05] MEDS: metoprolol succinate 25mg (24-HOUR) SR. Tablet PO SCH (07:37)
[2018-12-05] MEDS: pregabalin 75mg capsule PO SCH (07:37)
[2018-12-05] MEDS: insulin Lispro (HumaLOG) vial - multi-dose SQ SCH ×2 (09:13→19:07)
[2018-12-05 11:00] VITALS: BP 136/60
--- NOTE | 2018-12-05 11:23 | NUR ---
Reassessment: Pt with wound VAC to surgical site on right inner thigh per physical assessment. Pt not appropriate for protein education as pt documented as A/O x2. PO intake fluctuates initially with 75-100% PO intake down to averaging 50% however up to 75-100% PO intake at breakfast this morning. Noted that LBM 11/30, pt with MoM PRN not yet given, d/w RN. Possible that patient's PO intake will be more stable once constipation resolves. Will continue to follow. Rec: 1. continue carb controlled/heart healthy diet per MD 2. bowel care 3. wt per rx Addendum: 12/05/18 at [address] Amended: Links added.
--- NOTE | 2018-12-05 18:30 | NUR ---
Received report from Jenny ESPINOZA pt is awake and alert on RA, provena running, good seal. call light and items of freq use within reach.
--- NOTE | 2018-12-05 18:34 | NUR ---
Problems reprioritized. Patient report given, questions answered & plan of care reviewed with LOC ESPINOZA.
[2018-12-05 19:00] VITALS: BP 144/71
[2018-12-05] MEDS: insulin glargine (Lantus) pen - multi-dose SQ SCH (21:11)
[2018-12-06 00:30] VITALS: BP 157/57
[2018-12-06] MEDS: hydrALAZINE 20mg/ml inj. IV PRN (00:38)
[2018-12-06 02:26] VITALS: BP 145/57
[2018-12-06] MEDS: HYDROcodone/acetaminophen 5mg/325mg tablet PO PRN (02:32)
--- NOTE | 2018-12-06 06:17 | NUR ---
Gave report Kaylee ESPINOZA pt is resting on RA in no apparent distress, call light and items of freq use within reach.
--- NOTE | 2018-12-06 06:20 | NUR ---
Patient in room KATELYNN 358. I have received report from OLGA Cordova and had the opportunity to ask questions and assume patient care.
[2018-12-06 06:22] LABS: BASOPHILS % (AUTO) 0.5 % (0-1); EOSINOPHILS # (AUTO) 0.1 X10'3 (0-0.9); EOSINOPHILS % (AUTO) 1.8 % (0-6); HEMATOCRIT 23.9 % (35.0-45.0); HEMOGLOBIN 8.3 g/dl (12.0-16.0); LYMPHOCYTES # (AUTO) 1.8 X10'3 (1.1-4.8); LYMPHOCYTES % (AUTO) 22.1 % (21-51); MEAN CORPUSCULAR HEMOGLOBIN 32.2 PG (27.0-31.0); MEAN CORPUSCULAR HGB CONC 34.8 g/dL (33.0-36.5); MEAN CORPUSCULAR VOLUME 92.5 FL (78-98); MEAN PLATELET VOLUME 9.8 FL (7.4-10.4); MONOCYTES # (AUTO) 0.7 X10'3 (0-0.9); MONOCYTES % (AUTO) 9.2 % (2-12); NEUTROPHILS # (AUTO) 5.3 X10'3 (1.8-7.7); NEUTROPHILS % (AUTO) 66.4 % (42-75); PLATELET COUNT 183 X10'3 (140-440); RED BLOOD COUNT 2.59 X10'6 (4.20-5.60)
[2018-12-06 06:39] LABS: ALANINE AMINOTRANSFERASE 16 U/L (12-78); ALBUMIN 2.5 G/DL (3.4-5.0); ALBUMIN/GLOBULIN RATIO 0.8 (1.1-1.5); ALKALINE PHOSPHATASE 60 IU/L (46-116); ANION GAP 11 (8-16); ASPARTATE AMINO TRANSFERASE 13 U/L (10-37); BILIRUBIN,TOTAL 0.7 MG/DL (0.1-1.0); BLOOD UREA NITROGEN 24 MG/DL (7-18); BUN/CREATININE RATIO 15.5 (6.6-38.0); CALCIUM 9.1 MG/DL (8.5-10.1); CHLORIDE 106 MMOL/L (99-107); CREATININE 1.55 MG/DL (0.40-0.90); GLUCOSE 214 MG/DL (70-104); POTASSIUM 3.4 MMOL/L (3.5-5.1); SODIUM 139 MMOL/L (135-145); TOTAL CARBON DIOXIDE 22.1 MMOL/L (24-32); TOTAL PROTEIN 5.5 G/DL (6.4-8.2); eGFR 34 ML/MIN
[2018-12-06 08:00] VITALS: BP 144/48
[2018-12-06] MEDS: insulin Lispro (HumaLOG) vial - multi-dose SQ SCH (08:36)
[2018-12-06] MEDS: venlafaxine XR 75mg capsule (Q24H) PO SCH (08:41)
[2018-12-06] MEDS: levoTHYROXINE 25mcg tablet PO SCH (08:41)
[2018-12-06] MEDS: atorvastatin 20mg tablet PO SCH (08:41)
[2018-12-06] MEDS: clopidogrel 75mg tablet PO SCH (08:41)
[2018-12-06] MEDS: lactobacillus rhamnosus 10,000 MMU CELLS/CAPSULE PO SCH (08:41)
[2018-12-06] MEDS: losartan 50mg tablet PO SCH (08:41)
[2018-12-06] MEDS: fenofibrate 145mg tablet PO SCH (08:42)
[2018-12-06] MEDS: pregabalin 75mg capsule PO SCH (08:42)
[2018-12-06] MEDS: metoprolol succinate 25mg (24-HOUR) SR. Tablet PO SCH (08:42)
[2018-12-06] MEDS ORDERED: LOSA50TA64 PO (10:36)
[2018-12-06] MEDS ORDERED: LEVO500T89 PO (10:36)
[2018-12-06] MEDS ORDERED: HYDR-4383 PO (10:36)
[2018-12-06] MEDS ORDERED: levoFLOXACIN 500mg tablet PO SCH (11:00)
[2018-12-06 12:00] VITALS: BP 145/62
--- NOTE | 2018-12-06 14:00 | NUR ---
Patient discharged with all of her belongings and prescription for [place] in hand. Patient escorted down to her daughter's car with nursing staff, in a wheelchair with her daughter assisting as well. Patient understands she is to go to Dr. Thomas's office Saturday morning for follow up. Patient also refused her insulin for lunch meal eaten-blood glucose 75 before lunch. Pt states she is going to check her blood glucose when she gets home and give herself insulin at that time.
[2018-12-07] MEDS ORDERED: levoFLOXACIN 250mg tablet PO SCH (11:00)
== END 2018-12-06 14:00 | disposition home or self-care (01) | DRG 181 ==
LOC: ER 15:47 → ORTHO 4S 22:17 → CMPBEDREQ 12-01 18:04 → CICU 2S 12-02 11:27 → SUR 3N 12-04 17:40
PROVIDERS: ADMIT Internal Medicine; ATTEND Surgery
PROC: B42F1ZZ Computerized Tomography (CT Scan) of Right Lower Extremity Arteries using Low Osmolar Contrast (ICD-10-PCS; 2018-11-29)
PROC: 4A02XM4 Measurement of Cardiac Total Activity, External Approach (ICD-10-PCS; principal; 2018-11-30)
PROC: 3E033HZ Introduction of Radioactive Substance into Peripheral Vein, Percutaneous Approach (ICD-10-PCS; 2018-11-30)
PROC: 041K09L Bypass Right Femoral Artery to Popliteal Artery with Autologous Venous Tissue, Open Approach (ICD-10-PCS; 2018-12-02)
PROC: 06BP0ZZ Excision of Right Saphenous Vein, Open Approach (ICD-10-PCS; 2018-12-02)
PROC: 041K0KL Bypass Right Femoral Artery to Popliteal Artery with Nonautologous Tissue Substitute, Open Approach (ICD-10-PCS; 2018-12-02)
PROC: B41F1ZZ Fluoroscopy of Right Lower Extremity Arteries using Low Osmolar Contrast (ICD-10-PCS; 2018-12-02)
PROC: 02HV33Z Insertion of Infusion Device into Superior Vena Cava, Percutaneous Approach (ICD-10-PCS; 2018-12-02)
PROC: B548ZZA Ultrasonography of Superior Vena Cava, Guidance (ICD-10-PCS; 2018-12-02)
PROC: 03HY32Z Insertion of Monitoring Device into Upper Artery, Percutaneous Approach (ICD-10-PCS; 2018-12-02)
DX: E11.52 Type 2 diabetes mellitus with diabetic peripheral angiopathy with gangrene (principal); I96 Gangrene, not elsewhere classified; N17.9 Acute kidney failure, unspecified; E11.22 Type 2 diabetes mellitus with diabetic chronic kidney disease; E11.42 Type 2 diabetes mellitus with diabetic polyneuropathy; N18.3 Chronic kidney disease, stage 3 (moderate); I70.201 Unspecified atherosclerosis of native arteries of extremities, right leg; E03.9 Hypothyroidism, unspecified; F32.9 Major depressive disorder, single episode, unspecified; I12.9 Hypertensive chronic kidney disease with stage 1 through stage 4 chronic kidney disease, or unspecified chronic kidney disease; I25.10 Atherosclerotic heart disease of native coronary artery without angina pectoris; J44.9 Chronic obstructive pulmonary disease, unspecified; K57.90 Diverticulosis of intestine, part unspecified, without perforation or abscess without bleeding; E78.5 Hyperlipidemia, unspecified; K80.20 Calculus of gallbladder without cholecystitis without obstruction; L03.031 Cellulitis of right toe; M10.9 Gout, unspecified; Z79.02 Long term (current) use of antithrombotics/antiplatelets; Z86.010 Personal history of colon polyps; Z86.73 Personal history of transient ischemic attack (TIA), and cerebral infarction without residual deficits; Z88.2 Allergy status to sulfonamides; Z87.891 Personal history of nicotine dependence; Z87.442 Personal history of urinary calculi; Z79.899 Other long term (current) drug therapy; Z79.890 Hormone replacement therapy; Z79.84 Long term (current) use of oral hypoglycemic drugs; Z66 Do not resuscitate
CPT/HCPCS: 36415; 71045; 73560; 73660; 73706; 76000; 78452; 80048; 80053; 80202; 81001; 82948; 83036; 83605; 83735; 84100; 84145; 84443; 85025; 85610; 85651; 85730; 86140; 86885; 86900; 86901; 86920; 87040; 87081; 87088; 93005; 93017; 93922; 93925; 93970; 97116; 97161; 97530; A4618; A6258; A6455; A7000; A9500; C1758; C1768; G0378; J0280; J0360; J0690; J1100; J1170; J1644; J1815; J2001; J2250; J2270; J2405; J2543; J2704; J2785; J3010; J3370; J3480; J3490; J7030; J7040; J7120; P9045; Q9967

== ENCOUNTER 2019-01-02 09:04 | Day surgery (SDC) | payer MEDICAID ==
[2019-01-01 15:26] LABS: BASOPHILS % (AUTO) 0.4 % (0-1); EOSINOPHILS # (AUTO) 0.9 X10'3 (0-0.9); EOSINOPHILS % (AUTO) 7.1 % (0-6); LYMPHOCYTES # (AUTO) 2.2 X10'3 (1.1-4.8); LYMPHOCYTES % (AUTO) 17.6 % (21-51); MEAN CORPUSCULAR VOLUME 91.1 FL (78-98); MEAN PLATELET VOLUME 8.9 FL (7.4-10.4); MONOCYTES # (AUTO) 0.7 X10'3 (0-0.9); MONOCYTES % (AUTO) 5.2 % (2-12); NEUTROPHILS # (AUTO) 8.8 X10'3 (1.8-7.7); NEUTROPHILS % (AUTO) 69.7 % (42-75); PRE OP HEMATOCRIT 37.2 % (35.0-45.0); PRE OP HEMOGLOBIN 12.3 g/dL (12.0-16.0); PRE OP PLATELET COUNT 297 X10'3 (140-440); RED BLOOD COUNT 4.08 X10'6 (4.20-5.60); RED CELL DISTRIBUTION WIDTH 15.3 % (11.5-14.5)
[2019-01-01 15:39] LABS: CLARITY,URINE SLIGHTLY CLOUDY (Clear); COLOR,URINE YELLOW (Yellow); GLUCOSE, URINE NEGATIVE (Neg); KETONES,URINE NEGATIVE (Neg); LEUKOCYTE ESTERASE ,URINE NEGATIVE (Neg); NITRITES, URINE NEGATIVE (Neg); OCCULT BLOOD,URINE LARGE (Neg); PROTEIN,URINE 100 mg/dl (Neg); UROBILINOGEN,URINE 0.2 E.U/dL (0.2-1.0)
[2019-01-01 15:42] LABS: PRE OP PROTIME 10.2 SECONDS (9.0-12.0)
[2019-01-01 15:50] LABS: ALBUMIN 3.1 G/DL (3.4-5.0); ALBUMIN/GLOBULIN RATIO 0.8 (1.1-1.5); ALKALINE PHOSPHATASE 83 IU/L (46-116); BLOOD UREA NITROGEN 26 MG/DL (7-18); BUN/CREATININE RATIO 16.6 (6.6-38.0); CALCIUM 10.7 MG/DL (8.5-10.1); CHLORIDE 108 MMOL/L (99-107); CREATININE 1.57 MG/DL (0.40-0.90); PRE OP ALT 13 U/L (30-65); PRE OP ANION GAP 9 (8-16); PRE OP AST 14 U/L (10-37); PRE OP BILIRUB, TOTAL 0.3 MG/DL (0.0-1.0); PRE OP GLUCOSE 87 MG/DL (70-104); PRE OP POTASSIUM 4.9 MMOL/L (3.4-5.1); PRE OP SODIUM 139 MMOL/L (135-145); TOTAL CARBON DIOXIDE 21.8 MMOL/L (24-32); eGFR 33 ML/MIN
[2019-01-01 15:55] LABS: UA COLLECTION TYPE CLN CATCH MIDSTREAM
[2019-01-01 15:56] LABS: MUCUS STRANDS FEW /LPF (Neg); SQUAMOUS EPITHELIAL CELL,UR MANY /LPF (FEW)
[2019-01-01 15:57] LABS: BACTERIA,URINE FEW /HPF (Neg); RBC,URINE 50-100 /HPF (0-2); TRANSITIONAL EPI CELLS,URINE MODERATE /HPF; YEAST MANY /HPF (NEGATIVE)
[~2019-01-02] VITALS: Ht 147.3 cm; Wt 72.1 kg
[2019-01-02] VITALS (7 sets, daily range): BP systolic 8–145; BP diastolic 71–86
[~2019-01-02 09:04] MED LIST changes: +ALEN70TA60 PO; -ATOR20TA PO; +ATOR40TA PO; -BENA40TA73 PO; -CINN500C15 PO; -DILT120C88 PO; +DOCUMENT DATE & TIME OF BETA-BLOCKER PO ONE; -FENO160T PO; +FENO160T9 PO; -GLIP2.5T3 PO; +GLIP5TAB13 PO; +INSU100I31 SQ; -INSU100V12 SQ; +LEVO25TA2 PO; +LIRA0.6P SQ; -LOSA25TA96 PO; +LOSA50TA64 PO; -METF500T PO; -MULT1TAB74 PO; -ONDA8TAB6 PO; +PREG150C PO; -ROPI1TAB2 PO; -ROPI1TAB4 PO; -SYN0.025T PO; -THALITONE PO; -TRAM50TA2 PO; +albuterol 2.5 MG/3 ML nebule NEB ONE; +famotidine 20mg tablet PO ONE; +ringers solution, lacted 1,000 ML IV SCH
[2019-01-02] MEDS ORDERED: cefazolin/dext.iso 2gm/100 ML IV ONE (09:38)
[2019-01-02] MEDS ORDERED: cefazolin/dext.iso 2gm/50ml 50 ML IV ONE (09:45)
[2019-01-02] MEDS ORDERED: sevoflurane 250ml liquid IH ONE (17:26)
[2019-01-02] MEDS ORDERED: fentaNYL/PF 50MCG/1 ML 2ML syringe ONE (17:32)
[2019-01-02] MEDS ORDERED: midazolam 2 mg/2 ml injection ONE (17:32)
[2019-01-02] MEDS ORDERED: ePHEDrine 50MG/ML INJ. ONE (17:58)
[2019-01-02] MEDS ORDERED: propofol inj 20 ML IV ONE (17:58)
--- NOTE | 2019-01-02 18:18 | NUR ---
Received from OR via , accompanied by Anesthesiologist DR WOOD and report given by Anesthesiolgist. AWAKENS TO VOICE. VITALS STABLE. DRESSING DI. SRINI PAIN.
[2019-01-02] MEDS ORDERED: dextrose 50%-water 50ml dispensing syringe IV ONE ×2 (18:24→18:50)
[2019-01-02] MEDS ORDERED: proCHLORperazine 10 MG/2 ml inj IV PRN (18:25)
[2019-01-02] MEDS ORDERED: ondansetron/PF 4mg/2ml inj IV PRN (18:25)
[2019-01-02] MEDS ORDERED: morphine 4 MG/ML inj SYRINge IV PRN ×2 (18:25)
[2019-01-02] MEDS ORDERED: ringers solution, lacted 1,000 ML IV SCH (18:25)
[2019-01-02] MEDS ORDERED: meperidine/PF 25mg/ml syringe IV PRN ×3 (18:25)
[2019-01-02] MEDS ORDERED: HYDROcodone/acetaminophen 10/325mg tab PO ONE (19:15)
--- NOTE | 2019-01-02 19:28 | NUR ---
AWAKE AND ORIENTED. VITALS STABLE. DRESSING DI. STATES ONLY MILD DISCOMFORT. HOME WITH HER DAUGHTER AT THIS TIME.
== END 2019-01-02 19:18 | disposition home or self-care (01) ==
LOC: PAS 09:04
PROVIDERS: ATTEND Surgery
DX: T81.89XA Other complications of procedures, not elsewhere classified, initial encounter (principal); E11.22 Type 2 diabetes mellitus with diabetic chronic kidney disease; I12.9 Hypertensive chronic kidney disease with stage 1 through stage 4 chronic kidney disease, or unspecified chronic kidney disease; N18.9 Chronic kidney disease, unspecified; J44.9 Chronic obstructive pulmonary disease, unspecified; F17.210 Nicotine dependence, cigarettes, uncomplicated; E66.9 Obesity, unspecified; Z68.33 Body mass index [BMI] 33.0-33.9, adult; Z88.2 Allergy status to sulfonamides; Z98.890 Other specified postprocedural states; Z79.01 Long term (current) use of anticoagulants; Y83.8 Other surgical procedures as the cause of abnormal reaction of the patient, or of later complication, without mention of misadventure at the time of the procedure; Y92.89 Other specified places as the place of occurrence of the external cause
CPT/HCPCS: 13160; 36415; 80053; 81001; 82948; 85025; 85610; 85730; 87070; 87075; 87076; J2250; J2704; J3010; 87077; 87185; A4215; A4618; A6449; A7000; J7120

== ENCOUNTER 2019-01-15 10:01 | Day surgery (SDC) | payer MEDICAID ==
[~2019-01-15 10:01] MED LIST changes: -DOCUMENT DATE & TIME OF BETA-BLOCKER PO ONE; -albuterol 2.5 MG/3 ML nebule NEB ONE; -famotidine 20mg tablet PO ONE; -ringers solution, lacted 1,000 ML IV SCH
[2019-01-15] MEDS ORDERED: LIDOcaine 2% 5ml jelly ONE (11:27)
== END 2019-01-15 12:17 | disposition home or self-care (01) ==
LOC: WOUND CARE 10:01
PROVIDERS: ATTEND Surgery
DX: T81.30XA Disruption of wound, unspecified, initial encounter (principal); E11.621 Type 2 diabetes mellitus with foot ulcer; I70.235 Atherosclerosis of native arteries of right leg with ulceration of other part of foot; L97.511 Non-pressure chronic ulcer of other part of right foot limited to breakdown of skin; E11.622 Type 2 diabetes mellitus with other skin ulcer; L98.492 Non-pressure chronic ulcer of skin of other sites with fat layer exposed; E11.22 Type 2 diabetes mellitus with diabetic chronic kidney disease; I12.9 Hypertensive chronic kidney disease with stage 1 through stage 4 chronic kidney disease, or unspecified chronic kidney disease; N18.3 Chronic kidney disease, stage 3 (moderate); E11.52 Type 2 diabetes mellitus with diabetic peripheral angiopathy with gangrene; I96 Gangrene, not elsewhere classified; J44.9 Chronic obstructive pulmonary disease, unspecified; E11.42 Type 2 diabetes mellitus with diabetic polyneuropathy; E66.9 Obesity, unspecified; I25.10 Atherosclerotic heart disease of native coronary artery without angina pectoris; K80.20 Calculus of gallbladder without cholecystitis without obstruction; M10.9 Gout, unspecified; E78.5 Hyperlipidemia, unspecified; E03.9 Hypothyroidism, unspecified; F32.9 Major depressive disorder, single episode, unspecified; F17.210 Nicotine dependence, cigarettes, uncomplicated; Z79.890 Hormone replacement therapy; Z79.02 Long term (current) use of antithrombotics/antiplatelets; Z79.84 Long term (current) use of oral hypoglycemic drugs; Z68.33 Body mass index [BMI] 33.0-33.9, adult; Z79.899 Other long term (current) drug therapy; Z86.010 Personal history of colon polyps; Z86.73 Personal history of transient ischemic attack (TIA), and cerebral infarction without residual deficits; Z88.2 Allergy status to sulfonamides; Z98.890 Other specified postprocedural states; Z79.01 Long term (current) use of anticoagulants; Y83.8 Other surgical procedures as the cause of abnormal reaction of the patient, or of later complication, without mention of misadventure at the time of the procedure; Y92.89 Other specified places as the place of occurrence of the external cause
CPT/HCPCS: 36416; 82948; A4663; A6021; A6154; A6212

== ENCOUNTER 2019-01-21 10:24 | Day surgery (SDC) | payer MEDICAID ==
[2019-01-21] MEDS ORDERED: LIDOcaine 2% 5ml jelly ONE (11:09)
== END 2019-01-21 11:30 | disposition home or self-care (01) ==
LOC: WOUND CARE 10:24
PROVIDERS: ATTEND Surgery
DX: T81.30XD Disruption of wound, unspecified, subsequent encounter (principal); E11.621 Type 2 diabetes mellitus with foot ulcer; I70.235 Atherosclerosis of native arteries of right leg with ulceration of other part of foot; L97.511 Non-pressure chronic ulcer of other part of right foot limited to breakdown of skin; E11.622 Type 2 diabetes mellitus with other skin ulcer; L98.492 Non-pressure chronic ulcer of skin of other sites with fat layer exposed; E11.22 Type 2 diabetes mellitus with diabetic chronic kidney disease; I12.9 Hypertensive chronic kidney disease with stage 1 through stage 4 chronic kidney disease, or unspecified chronic kidney disease; N18.3 Chronic kidney disease, stage 3 (moderate); E11.52 Type 2 diabetes mellitus with diabetic peripheral angiopathy with gangrene; I96 Gangrene, not elsewhere classified; E11.65 Type 2 diabetes mellitus with hyperglycemia; J44.9 Chronic obstructive pulmonary disease, unspecified; E11.42 Type 2 diabetes mellitus with diabetic polyneuropathy; E66.9 Obesity, unspecified; I25.10 Atherosclerotic heart disease of native coronary artery without angina pectoris; K80.20 Calculus of gallbladder without cholecystitis without obstruction; M10.9 Gout, unspecified; E78.5 Hyperlipidemia, unspecified; E03.9 Hypothyroidism, unspecified; F32.9 Major depressive disorder, single episode, unspecified; F17.210 Nicotine dependence, cigarettes, uncomplicated; Z79.890 Hormone replacement therapy; Z79.02 Long term (current) use of antithrombotics/antiplatelets; Z79.84 Long term (current) use of oral hypoglycemic drugs; Z68.33 Body mass index [BMI] 33.0-33.9, adult; Z79.899 Other long term (current) drug therapy; Z86.010 Personal history of colon polyps; Z86.73 Personal history of transient ischemic attack (TIA), and cerebral infarction without residual deficits; Z88.2 Allergy status to sulfonamides; Z98.890 Other specified postprocedural states; Z79.01 Long term (current) use of anticoagulants; Y83.8 Other surgical procedures as the cause of abnormal reaction of the patient, or of later complication, without mention of misadventure at the time of the procedure
CPT/HCPCS: 36416; 82948; A4663; A6021; A6154; A6213

== ENCOUNTER 2019-02-03 10:52 | Day surgery (SDC) | payer MEDICAID ==
[2019-02-03] MEDS ORDERED: LIDOcaine 2% 5ml jelly ONE (11:07)
== END 2019-02-03 12:00 | disposition home or self-care (01) ==
LOC: WOUND CARE 10:52
PROVIDERS: ATTEND Surgery
DX: T81.30XD Disruption of wound, unspecified, subsequent encounter (principal); E11.622 Type 2 diabetes mellitus with other skin ulcer; L98.492 Non-pressure chronic ulcer of skin of other sites with fat layer exposed; E11.621 Type 2 diabetes mellitus with foot ulcer; I70.235 Atherosclerosis of native arteries of right leg with ulceration of other part of foot; L97.511 Non-pressure chronic ulcer of other part of right foot limited to breakdown of skin; E11.22 Type 2 diabetes mellitus with diabetic chronic kidney disease; I12.9 Hypertensive chronic kidney disease with stage 1 through stage 4 chronic kidney disease, or unspecified chronic kidney disease; N18.3 Chronic kidney disease, stage 3 (moderate); E11.52 Type 2 diabetes mellitus with diabetic peripheral angiopathy with gangrene; I96 Gangrene, not elsewhere classified; E11.65 Type 2 diabetes mellitus with hyperglycemia; J44.9 Chronic obstructive pulmonary disease, unspecified; E11.42 Type 2 diabetes mellitus with diabetic polyneuropathy; E66.9 Obesity, unspecified; I25.10 Atherosclerotic heart disease of native coronary artery without angina pectoris; K80.20 Calculus of gallbladder without cholecystitis without obstruction; M10.9 Gout, unspecified; E78.5 Hyperlipidemia, unspecified; E03.9 Hypothyroidism, unspecified; F32.9 Major depressive disorder, single episode, unspecified; F17.210 Nicotine dependence, cigarettes, uncomplicated; Z79.890 Hormone replacement therapy; Z79.02 Long term (current) use of antithrombotics/antiplatelets; Z79.84 Long term (current) use of oral hypoglycemic drugs; Z68.33 Body mass index [BMI] 33.0-33.9, adult; Z79.899 Other long term (current) drug therapy; Z86.010 Personal history of colon polyps; Z86.73 Personal history of transient ischemic attack (TIA), and cerebral infarction without residual deficits; Z88.2 Allergy status to sulfonamides; Z98.890 Other specified postprocedural states; Z79.01 Long term (current) use of anticoagulants; Y83.8 Other surgical procedures as the cause of abnormal reaction of the patient, or of later complication, without mention of misadventure at the time of the procedure
CPT/HCPCS: A4663; A6021; A6154; A6212

== ENCOUNTER 2019-02-23 10:50 | Day surgery (SDC) | payer MEDICAID | END 2019-02-23 12:10 | disposition home or self-care (01) | LOC: WOUND CARE 10:50 | PROVIDERS: ATTEND Surgery | DX: T81.30XD Disruption of wound, unspecified, subsequent encounter (principal); E11.622 Type 2 diabetes mellitus with other skin ulcer; L98.492 Non-pressure chronic ulcer of skin of other sites with fat layer exposed; E11.621 Type 2 diabetes mellitus with foot ulcer; I70.235 Atherosclerosis of native arteries of right leg with ulceration of other part of foot; L97.511 Non-pressure chronic ulcer of other part of right foot limited to breakdown of skin; E11.22 Type 2 diabetes mellitus with diabetic chronic kidney disease; I12.9 Hypertensive chronic kidney disease with stage 1 through stage 4 chronic kidney disease, or unspecified chronic kidney disease; N18.3 Chronic kidney disease, stage 3 (moderate); E11.52 Type 2 diabetes mellitus with diabetic peripheral angiopathy with gangrene; I96 Gangrene, not elsewhere classified; E11.65 Type 2 diabetes mellitus with hyperglycemia; J44.9 Chronic obstructive pulmonary disease, unspecified; E11.42 Type 2 diabetes mellitus with diabetic polyneuropathy; E66.9 Obesity, unspecified; I25.10 Atherosclerotic heart disease of native coronary artery without angina pectoris; K80.20 Calculus of gallbladder without cholecystitis without obstruction; M10.9 Gout, unspecified; E78.5 Hyperlipidemia, unspecified; E03.9 Hypothyroidism, unspecified; F32.9 Major depressive disorder, single episode, unspecified; F17.210 Nicotine dependence, cigarettes, uncomplicated; Z79.890 Hormone replacement therapy; Z79.02 Long term (current) use of antithrombotics/antiplatelets; Z79.84 Long term (current) use of oral hypoglycemic drugs; Z68.33 Body mass index [BMI] 33.0-33.9, adult; Z79.899 Other long term (current) drug therapy; Z86.010 Personal history of colon polyps; Z86.73 Personal history of transient ischemic attack (TIA), and cerebral infarction without residual deficits; Z88.2 Allergy status to sulfonamides; Z98.890 Other specified postprocedural states; Z79.01 Long term (current) use of anticoagulants; Y83.8 Other surgical procedures as the cause of abnormal reaction of the patient, or of later complication, without mention of misadventure at the time of the procedure | CPT/HCPCS: 82948; G0463; A4663 ==

== ENCOUNTER 2019-04-08 17:51 | Inpatient (IN) | payer MEDICAID ==
[~2019-04-08] VITALS: Ht 147.3 cm; Wt 75.4 kg
[~2019-04-08 17:51] MED LIST changes: +LIDOcaine 2% (20 mg/ml) 5ml cardiac syringe ONE; +etomidate 2mg/ml inj. ONE; +sodium bicarbonate (8.4%) 1 mEq/ml syringe ONE
[2019-04-08] MEDS ORDERED: normal saline 1000ml 1,000 ML IV ONE (18:05)
[2019-04-08] MEDS ORDERED: ondansetron/PF 4mg/2ml inj IV ONE (18:05)
[2019-04-08 18:14] LABS: BASOPHILS # (AUTO) 0.1 X10'3 (0-0.2); BASOPHILS % (AUTO) 0.4 % (0-1); EOSINOPHILS % (AUTO) 0.1 % (0-6); HEMATOCRIT 35.7 % (35.0-45.0); LYMPHOCYTES # (AUTO) 2.3 X10'3 (1.1-4.8); LYMPHOCYTES % (AUTO) 14.9 % (21-51); MEAN CORPUSCULAR HEMOGLOBIN 29.3 PG (27.0-31.0); MEAN CORPUSCULAR HGB CONC 33.6 g/dL (33.0-36.5); MEAN CORPUSCULAR VOLUME 87.1 FL (78-98); MEAN PLATELET VOLUME 8.8 FL (7.4-10.4); MONOCYTES # (AUTO) 1.5 X10'3 (0-0.9); MONOCYTES % (AUTO) 9.4 % (2-12); NEUTROPHILS # (AUTO) 11.9 X10'3 (1.8-7.7); NEUTROPHILS % (AUTO) 75.2 % (42-75); PLATELET COUNT 295 X10'3 (140-440); RED BLOOD COUNT 4.09 X10'6 (4.20-5.60); RED CELL DISTRIBUTION WIDTH 15.7 % (11.5-14.5); WHITE BLOOD COUNT 15.8 X10'3 (4.5-11.0)
[2019-04-08] MEDS ORDERED: heparin 25,000 UNIT/250ml bag 250 ML IV SCH (18:24)
[2019-04-08] MEDS ORDERED: heparin 10,000 units/1 ML INJ IV PRN ×2 (18:25→18:34)
[2019-04-08] MEDS ORDERED: heparin 10,000 units/1 ML INJ IV ONE ×2 (18:25→20:50)
[2019-04-08 18:28] LABS: PARTIAL THROMBOPLASTIN TIME 25 SECONDS (22-32)
--- NOTE | 2019-04-08 18:28 | NUR ---
gave report to oncoming nurse
[2019-04-08] MEDS ORDERED: iohexol 350 MG/1 ML 200ml bottle ONE (18:32)
[2019-04-08] MEDS ORDERED: iohexol 350 MG/ML 50ML vial IV ONE (18:32)
[2019-04-08] MEDS ORDERED: heparin 1,000unit/ml 10ml vial 10 ML ONE (18:32)
[2019-04-08] MEDS ORDERED: LIDOcaine 1% (10mg/ml)w/preservative injection 20ml MDV ONE (18:32)
[2019-04-08] MEDS ORDERED: midazolam 2 mg/2 ml injection ONE (18:32)
[2019-04-08] MEDS ORDERED: fentaNYL/PF 50MCG/1 ML 2ML syringe ONE (18:32)
[2019-04-08 18:35] LABS: ALANINE AMINOTRANSFERASE 46 U/L (12-78); ALBUMIN 2.7 G/DL (3.4-5.0); ALBUMIN/GLOBULIN RATIO 0.8 (1.1-1.5); ALKALINE PHOSPHATASE 83 IU/L (46-116); ANION GAP 9 (8-16); ASPARTATE AMINO TRANSFERASE 97 U/L (10-37); BILIRUBIN,TOTAL 0.5 MG/DL (0.1-1.0); BLOOD UREA NITROGEN 74 MG/DL (7-18); BUN/CREATININE RATIO 23.7 (6.6-38.0); CALCIUM 8.6 MG/DL (8.5-10.1); CHLORIDE 102 MMOL/L (99-107); CREATININE 3.12 MG/DL (0.40-0.90); GLUCOSE 133 MG/DL (70-104); POTASSIUM 3.9 MMOL/L (3.5-5.1); SODIUM 135 MMOL/L (135-145); TOTAL CARBON DIOXIDE 24.3 MMOL/L (24-32); TOTAL PROTEIN 6.1 G/DL (6.4-8.2); eGFR 15 ML/MIN
[2019-04-08] MEDS ORDERED: DOBUTamine-DoBUTrex 500mg/D5W 250 ML IV ONE (19:33)
[2019-04-08] MEDS ORDERED: tirofiban 5mg in NS 100mL 100 ML IV ONE (19:41)
[2019-04-08 20:26] LABS: ISTAT Hct MIX 24 %PCV (35-48); ISTAT O2 SATURATION MIX VENOUS 85 % (60-80); ISTAT SOURCE MIX
[2019-04-08 20:26] LABS: ISTAT HGB ART 8.2 g/dl (12.0-16.0); ISTAT Hct ART 24 %PCV (35-48); ISTAT O2 SATURATION ARTERIAL 100 % (95-98); ISTAT SOURCE ART
--- NOTE | 2019-04-08 20:45 | NUR ---
RECEIVED FROM DENTAL SALES REPRESENTATIVE , AWAKE , ALERT AND ORIENTED , WITH PEREZ DICKENS LINE , VENOUS SHEATH , ON LEFT GROIN , DENIES PAIN , ON DOBUTAMINE , HEPARIN , AND AGGRASTAT .
[2019-04-08] MEDS ORDERED: acetaminophen 325mg tablet PO PRN ×3 (20:50→21:45)
[2019-04-08] MEDS ORDERED: morphine 2 MG/ML inj. syringe IV PRN (20:50)
[2019-04-08] MEDS ORDERED: potassium Cl 20 mEq SR tablet PO PRN ×2 (20:50)
[2019-04-08] MEDS ORDERED: magnesium hydroxide 30ml (MOM) UD suspension PO PRN ×2 (20:50→21:45)
[2019-04-08] MEDS ORDERED: normal saline 1000ml 1,000 ML IV SCH (20:50)
[2019-04-08] MEDS: heparin 25,000 UNIT/250ml bag 250 ML IV SCH (20:50)
[2019-04-08] MEDS: K, MAG and/or Phos replacement - Verify level? MC SCH (20:50)
[2019-04-08] MEDS ORDERED: potassium CL 10mEq/100ml bag 100 ML IV PRN (20:50)
[2019-04-08] MEDS ORDERED: ondansetron/PF 4mg/2ml inj IV PRN (20:50)
[2019-04-08] MEDS ORDERED: DOBUTamine-DoBUTrex 500mg/D5W 250 ML IV PRN (20:50)
[2019-04-08] MEDS ORDERED: morphine 4 MG/ML inj SYRINge IV PRN ×2 (20:50→21:45)
[2019-04-08 20:55] VITALS: BP 88/54
[2019-04-08 21:00] VITALS: BP 88/54
[2019-04-08] MEDS: insulin glargine (Lantus) pen - multi-dose SQ SCH (21:00)
[2019-04-08] MEDS ORDERED: MESSAGE TO PHARMACY PO ONE (21:00)
[2019-04-08] MEDS ORDERED: non-formulary drug (Alendronate Sodium* (Fosamax*) 1 TABLET) PO SCH (21:00)
[2019-04-08] MEDS ORDERED: glucagon, human recombinant 1mg kit SUBCUT PRN (21:00)
[2019-04-08] MEDS ORDERED: dextrose 50%-water 50ml dispensing syringe IV PRN ×2 (21:00)
[2019-04-08] MEDS ORDERED: dextrose ORAL solution 15 GM/59 ML bottle PO PRN (21:00)
[2019-04-08 21:19] LABS: HEMOGLOBIN A1C 9.4 % (4.5-6.2)
[2019-04-08] MEDS ORDERED: OXAZEpam 15mg capsule PO PRN (21:45)
[2019-04-08] MEDS ORDERED: morphine 10mg/ml inj. IV PRN (21:45)
[2019-04-08] MEDS ORDERED: nitroGLYCERIN 0.4mg SUBLingual tab SL PRN (21:45)
[2019-04-08] MEDS ORDERED: HYDROcodone/acetaminophen 10/325mg tab PO PRN ×2 (21:45)
[2019-04-08] MEDS ORDERED: proCHLORperazine 10 MG/2 ml inj IV PRN (21:45)
[2019-04-08] MEDS ORDERED: tirofiban 5mg in NS 100mL 100 ML IV SCH (21:50)
[2019-04-08 22:00] VITALS: BP 86/53
[2019-04-08 23:00] VITALS: BP 85/52
[2019-04-08] MEDS: sodium chloride 0.45% 1,000 ML IV SCH (23:14)
[2019-04-09] VITALS (26 sets, daily range): BP systolic 78–110; BP diastolic 45–64
[2019-04-09] MEDS: dextrose ORAL solution 15 GM/59 ML bottle PO PRN ×2 (02:50→03:14)
[2019-04-09 02:52] LABS: BASOPHILS % (AUTO) 0.2 % (0-1); EOSINOPHILS % (AUTO) 0.1 % (0-6); HEMATOCRIT 28.5 % (35.0-45.0); HEMOGLOBIN 9.9 g/dl (12.0-16.0); LYMPHOCYTES % (AUTO) 21.6 % (21-51); MEAN CORPUSCULAR HEMOGLOBIN 30.6 PG (27.0-31.0); MEAN CORPUSCULAR HGB CONC 34.8 g/dL (33.0-36.5); MEAN PLATELET VOLUME 8.5 FL (7.4-10.4); MONOCYTES # (AUTO) 0.8 X10'3 (0-0.9); MONOCYTES % (AUTO) 8.7 % (2-12); NEUTROPHILS # (AUTO) 6.5 X10'3 (1.8-7.7); NEUTROPHILS % (AUTO) 69.4 % (42-75); PLATELET COUNT 186 X10'3 (140-440); RED BLOOD COUNT 3.24 X10'6 (4.20-5.60); RED CELL DISTRIBUTION WIDTH 15.5 % (11.5-14.5); WHITE BLOOD COUNT 9.4 X10'3 (4.5-11.0)
[2019-04-09 03:08] LABS: ALANINE AMINOTRANSFERASE 38 U/L (12-78); ALBUMIN 2.1 G/DL (3.4-5.0); ALBUMIN/GLOBULIN RATIO 0.8 (1.1-1.5); ALKALINE PHOSPHATASE 71 IU/L (46-116); ANION GAP 8 (8-16); ASPARTATE AMINO TRANSFERASE 98 U/L (10-37); BILIRUBIN,TOTAL 0.3 MG/DL (0.1-1.0); BLOOD UREA NITROGEN 62 MG/DL (7-18); BUN/CREATININE RATIO 24.5 (6.6-38.0); CALCIUM 7.3 MG/DL (8.5-10.1); CHLORIDE 110 MMOL/L (99-107); CREATININE 2.53 MG/DL (0.40-0.90); GLUCOSE 67 MG/DL (70-104); MAGNESIUM 1.8 MG/DL (1.5-2.4); PHOSPHORUS 4.2 MG/DL (2.3-4.5); POTASSIUM 3.2 MMOL/L (3.5-5.1); SODIUM 139 MMOL/L (135-145); TOTAL CARBON DIOXIDE 21.3 MMOL/L (24-32); TOTAL PROTEIN 4.9 G/DL (6.4-8.2); eGFR 19 ML/MIN
[2019-04-09] MEDS: heparin 10,000 units/1 ML INJ IV PRN ×2 (03:44→16:47)
[2019-04-09] MEDS: potassium CL 10mEq/100ml bag 100 ML IV PRN ×2 (04:56→06:09)
--- NOTE | 2019-04-09 06:54 | NUR ---
Problems reprioritized. Patient report given, questions answered & plan of care reviewed with Vinicio ESPINOZA.
[2019-04-09] MEDS: pregabalin 75mg capsule PO SCH (07:58)
[2019-04-09] MEDS: venlafaxine XR 75mg capsule (Q24H) PO SCH (07:58)
[2019-04-09] MEDS: aspirin 81mg tab.chew PO SCH (07:58)
[2019-04-09] MEDS: pantoprazole 40mg Tablet.DR PO SCH (07:58)
[2019-04-09] MEDS: fenofibrate 145mg tablet PO SCH (07:59)
[2019-04-09] MEDS: clopidogrel 75mg tablet PO SCH (07:59)
[2019-04-09] MEDS: docusate sod 100mg capsule PO SCH ×2 (07:59→21:02)
[2019-04-09] MEDS: atorvastatin 20mg tablet PO SCH (07:59)
[2019-04-09] MEDS ORDERED: clopidogrel 75mg tablet PO SCH (08:00)
[2019-04-09] MEDS: K, MAG and/or Phos replacement - Verify level? MC SCH (08:00)
[2019-04-09] MEDS: levoTHYROXINE 25mcg tablet PO SCH (09:20)
[2019-04-09] MEDS ORDERED: FLU VACC QS2019-20 36MOS UP/PF 60 MCG/0.5 ML SYRINGE IMVAC ONE (10:00)
[2019-04-09] MEDS ORDERED: pneumococcal 23-VAL P-sac vacc 25 mcg/0.5ml vial IMVAC ONE (10:00)
--- NOTE | 2019-04-09 10:00 | NUR ---
Pneumo vaccine given by Amina ESPINOZA during primary RN's break. Scanned medication did not save. non-administered medication to ensure it is given twice but patient did receive one dose 04/09/19. Will continue to monitor.
[2019-04-09] MEDS: tirofiban 5mg in NS 100mL 100 ML IV SCH (12:26)
[2019-04-09] MEDS: DOBUTamine-DoBUTrex 500mg/D5W 250 ML IV PRN (12:29)
[2019-04-09] MEDS ORDERED: albumin (human) 25% 100 ML IV solution IV ONE (13:20)
[2019-04-09 14:02] LABS: ALANINE AMINOTRANSFERASE 37 U/L (12-78); ALBUMIN 2.2 G/DL (3.4-5.0); ALBUMIN/GLOBULIN RATIO 0.8 (1.1-1.5); ALKALINE PHOSPHATASE 72 IU/L (46-116); ANION GAP 9 (8-16); ASPARTATE AMINO TRANSFERASE 86 U/L (10-37); BILIRUBIN,TOTAL 0.2 MG/DL (0.1-1.0); BLOOD UREA NITROGEN 63 MG/DL (7-18); BUN/CREATININE RATIO 24.5 (6.6-38.0); CALCIUM 7.6 MG/DL (8.5-10.1); CHLORIDE 109 MMOL/L (99-107); CREATININE 2.57 MG/DL (0.40-0.90); GLUCOSE 70 MG/DL (70-104); POTASSIUM 3.7 MMOL/L (3.5-5.1); SODIUM 138 MMOL/L (135-145); TOTAL CARBON DIOXIDE 20.2 MMOL/L (24-32); eGFR 19 ML/MIN
[2019-04-09] MEDS: NORepinephrine 8mg/ 250ml NS 250 ML IV SCH (14:25)
[2019-04-09 15:17] LABS: % IRON SATURATION 5 % (11-46); IRON 12 UG/DL (49-151); TOTAL IRON BINDING CAPACITY 237 UG/DL (259-388)
--- NOTE | 2019-04-09 15:27 | NUR ---
DM/malnutrition consult: Pt admitted with A1c of 9.4. RD sourcing intern visited pt and family at bedside and provided written and verbal DM education with referral to CDE course and RD contact information. Pt does not appear with visible fat or muscle wasting. Pt denies any weight loss. Pt currently documented with scaled wt of 75.8kg, in November pt documented with scaled wt of 72.7kg. Pt reports feeling hungry and would like to eat, however currently NPO per bedside RN. Pending physical assessment. Pt does not meet minimum criteria for malnutrition at this time. Will continue to monitor. Addendum: 04/09/19 at 1527 by Wing Carson ROTHMAN Amended: Links added. Addendum: 04/09/19 at [address] STEPHAN Approves
[2019-04-09] MEDS: heparin 25,000 UNIT/250ml bag 250 ML IV SCH (16:45)
--- NOTE | 2019-04-09 17:00 | NUR ---
Called Dr. Edwards to notify of levo and request when to stop heparin, aggrastat or discontinue the sheath. Received order to keep all the above the same at this time. Will continue to monitor.,
[2019-04-09] MEDS: sodium chloride 0.45% 1,000 ML IV SCH (17:48)
[2019-04-09] MEDS: cyclobenzaprine 10mg tablet PO PRN (18:39)
[2019-04-09] MEDS ORDERED: simethicone 80mg chew tab PO PRN (20:20)
--- NOTE | 2019-04-09 20:40 | NUR ---
SEEN BY DR. CARDENAS
[2019-04-09] MEDS: insulin glargine (Lantus) pen - multi-dose SQ SCH (21:00)
[2019-04-10] VITALS (25 sets, daily range): BP systolic 81–102; BP diastolic 46–60
[2019-04-10] MEDS: tirofiban 5mg in NS 100mL 100 ML IV SCH (01:42)
--- NOTE | 2019-04-10 01:53 | NUR ---
PATIENT KEPT SNORING AND WAKING UP , CLAIMED SHE HAS CPAP AT HOME AND SHE USES AT TIMES WHEN SLEEP , FREDERICK WALKER , NOTIFIED AND ORDERED TO RT TO EVALUATE AND TREAT INDICATED , ON CPAP AT THIS TIME .
[2019-04-10] MEDS ORDERED: albuterol 2.5 MG/3 ML nebule NEB PRN (02:15)
[2019-04-10 05:06] LABS: BASOPHILS % (AUTO) 0.2 % (0-1); EOSINOPHILS % (AUTO) 0.2 % (0-6); HEMATOCRIT 24.2 % (35.0-45.0); HEMOGLOBIN 8.4 g/dl (12.0-16.0); LYMPHOCYTES # (AUTO) 1.1 X10'3 (1.1-4.8); LYMPHOCYTES % (AUTO) 13.8 % (21-51); MEAN CORPUSCULAR HEMOGLOBIN 30.7 PG (27.0-31.0); MEAN CORPUSCULAR HGB CONC 34.7 g/dL (33.0-36.5); MEAN CORPUSCULAR VOLUME 88.7 FL (78-98); MONOCYTES # (AUTO) 0.6 X10'3 (0-0.9); MONOCYTES % (AUTO) 8.1 % (2-12); NEUTROPHILS # (AUTO) 6.1 X10'3 (1.8-7.7); NEUTROPHILS % (AUTO) 77.7 % (42-75); PLATELET COUNT 163 X10'3 (140-440); RED BLOOD COUNT 2.73 X10'6 (4.20-5.60); RED CELL DISTRIBUTION WIDTH 15.5 % (11.5-14.5); WHITE BLOOD COUNT 7.8 X10'3 (4.5-11.0)
[2019-04-10 05:20] LABS: ALANINE AMINOTRANSFERASE 34 U/L (12-78); ALBUMIN 2.5 G/DL (3.4-5.0); ALBUMIN/GLOBULIN RATIO 0.9 (1.1-1.5); ALKALINE PHOSPHATASE 72 IU/L (46-116); ANION GAP 11 (8-16); ASPARTATE AMINO TRANSFERASE 72 U/L (10-37); BILIRUBIN,TOTAL 0.3 MG/DL (0.1-1.0); BLOOD UREA NITROGEN 56 MG/DL (7-18); BUN/CREATININE RATIO 21.3 (6.6-38.0); CALCIUM 8.1 MG/DL (8.5-10.1); CHLORIDE 107 MMOL/L (99-107); CREATININE 2.63 MG/DL (0.40-0.90); GLUCOSE 114 MG/DL (70-104); MAGNESIUM 1.9 MG/DL (1.5-2.4); PHOSPHORUS 4.6 MG/DL (2.3-4.5); POTASSIUM 3.6 MMOL/L (3.5-5.1); SODIUM 136 MMOL/L (135-145); TOTAL CARBON DIOXIDE 17.7 MMOL/L (24-32); TOTAL PROTEIN 5.4 G/DL (6.4-8.2); eGFR 18 ML/MIN
--- NOTE | 2019-04-10 06:41 | NUR ---
Problems reprioritized. Patient report given, questions answered & plan of care reviewed with ZHANG ESPINOZA.
[2019-04-10] MEDS: NORepinephrine 8mg/ 250ml NS 250 ML IV SCH (07:51)
[2019-04-10] MEDS: K, MAG and/or Phos replacement - Verify level? MC SCH (08:00)
[2019-04-10] MEDS: docusate sod 100mg capsule PO SCH ×2 (09:24→20:30)
[2019-04-10] MEDS: pantoprazole 40mg Tablet.DR PO SCH (09:24)
[2019-04-10] MEDS: pregabalin 75mg capsule PO SCH (09:24)
[2019-04-10] MEDS: levoTHYROXINE 25mcg tablet PO SCH (09:25)
[2019-04-10] MEDS: clopidogrel 75mg tablet PO SCH (09:25)
[2019-04-10] MEDS: aspirin 81mg tab.chew PO SCH (09:25)
[2019-04-10] MEDS: atorvastatin 20mg tablet PO SCH (09:25)
[2019-04-10] MEDS: venlafaxine XR 75mg capsule (Q24H) PO SCH (09:27)
[2019-04-10] MEDS: fenofibrate 145mg tablet PO SCH (09:28)
[2019-04-10] MEDS ORDERED: heparin 25,000 UNIT/250ml bag 250 ML IV SCH (09:50)
[2019-04-10] MEDS ORDERED: naloxone 0.4 mg/ml inj ONE (11:52)
[2019-04-10] MEDS: heparin 10,000 units/1 ML INJ IV PRN (12:01)
[2019-04-10] MEDS: DOBUTamine-DoBUTrex 500mg/D5W 250 ML IV PRN (12:09)
[2019-04-10] MEDS: WATER IV SCH (14:36)
[2019-04-10] MEDS: DEXTROSE IV SCH (14:36)
[2019-04-10] MEDS: SODIUM BICARBONATE IV SCH (14:36)
--- NOTE | 2019-04-10 15:15 | NUR ---
1420Received order for PICC line, placed order in [employer], paged via intranet. 1500 Waited then called the PICC line phone when unable to reach. 1515 Called Nursing bailer tenders supervisor, Nadeen, who states that the PICC Nurse is on-call until 1600 and that it would take too long for her to come in. It is too late. Notified Albertina charge nurse who called Nadeen to request and explain importance of PICC line, also received a decline to call in PICC RN. Dr. Soliz notified. Will continue to monitor.
--- NOTE | 2019-04-10 17:15 | NUR ---
Dr. Edwards called and states that if that patient will keep lines over night that that patient must restart heparin drip at rate that we stopped her at without initial bolus. Discussed low blood pressure and MAP, received no new orders. Dr. Soliz notified. Will continue to monitor.
[2019-04-10] MEDS ORDERED: heparin 10,000 units/1 ML INJ IV PRN (17:30)
[2019-04-10 18:07] LABS: BASOPHILS % (AUTO) 0.3 % (0-1); EOSINOPHILS % (AUTO) 0.3 % (0-6); HEMATOCRIT 22.5 % (35.0-45.0); HEMOGLOBIN 7.6 g/dl (12.0-16.0); LYMPHOCYTES # (AUTO) 0.9 X10'3 (1.1-4.8); LYMPHOCYTES % (AUTO) 14.7 % (21-51); MEAN CORPUSCULAR HEMOGLOBIN 29.7 PG (27.0-31.0); MEAN CORPUSCULAR VOLUME 87.5 FL (78-98); MEAN PLATELET VOLUME 8.3 FL (7.4-10.4); MONOCYTES # (AUTO) 0.6 X10'3 (0-0.9); MONOCYTES % (AUTO) 9.7 % (2-12); NEUTROPHILS # (AUTO) 4.8 X10'3 (1.8-7.7); PLATELET COUNT 158 X10'3 (140-440); RED BLOOD COUNT 2.57 X10'6 (4.20-5.60); RED CELL DISTRIBUTION WIDTH 15.6 % (11.5-14.5); WHITE BLOOD COUNT 6.4 X10'3 (4.5-11.0)
[2019-04-10 18:19] LABS: PARTIAL THROMBOPLASTIN TIME 28 SECONDS (22-32)
[2019-04-10] MEDS: heparin 25,000 UNIT/250ml bag 250 ML IV SCH (18:35)
[2019-04-10] MEDS: insulin glargine (Lantus) pen - multi-dose SQ SCH (21:00)
[2019-04-11] VITALS (28 sets, daily range): BP systolic 86–115; BP diastolic 48–86
[2019-04-11] MEDS: DEXTROSE IV SCH ×2 (00:25→13:28)
[2019-04-11] MEDS: SODIUM BICARBONATE IV SCH ×2 (00:25→13:28)
[2019-04-11] MEDS: WATER IV SCH ×2 (00:25→13:28)
[2019-04-11] MEDS: NORepinephrine 8mg/ 250ml NS 250 ML IV SCH ×2 (01:06→19:03)
[2019-04-11] MEDS: cyclobenzaprine 10mg tablet PO PRN (02:47)
[2019-04-11 04:22] LABS: BASOPHILS % (AUTO) 0.1 % (0-1); EOSINOPHILS % (AUTO) 0.6 % (0-6); HEMATOCRIT 23.1 % (35.0-45.0); HEMOGLOBIN 7.8 g/dl (12.0-16.0); LYMPHOCYTES # (AUTO) 1.3 X10'3 (1.1-4.8); LYMPHOCYTES % (AUTO) 16.3 % (21-51); MEAN CORPUSCULAR HEMOGLOBIN 29.6 PG (27.0-31.0); MEAN CORPUSCULAR HGB CONC 33.7 g/dL (33.0-36.5); MEAN CORPUSCULAR VOLUME 87.9 FL (78-98); MEAN PLATELET VOLUME 9.5 FL (7.4-10.4); MONOCYTES # (AUTO) 0.7 X10'3 (0-0.9); MONOCYTES % (AUTO) 9.4 % (2-12); NEUTROPHILS # (AUTO) 5.9 X10'3 (1.8-7.7); NEUTROPHILS % (AUTO) 73.6 % (42-75); PLATELET COUNT 172 X10'3 (140-440); RED BLOOD COUNT 2.63 X10'6 (4.20-5.60)
[2019-04-11 04:25] LABS: ALANINE AMINOTRANSFERASE 25 U/L (12-78); ALBUMIN 2.2 G/DL (3.4-5.0); ALBUMIN/GLOBULIN RATIO 0.7 (1.1-1.5); ALKALINE PHOSPHATASE 81 IU/L (46-116); ANION GAP 12 (8-16); ASPARTATE AMINO TRANSFERASE 49 U/L (10-37); BILIRUBIN,TOTAL 0.5 MG/DL (0.1-1.0); BLOOD UREA NITROGEN 58 MG/DL (7-18); BUN/CREATININE RATIO 19.1 (6.6-38.0); CALCIUM 8.3 MG/DL (8.5-10.1); CHLORIDE 105 MMOL/L (99-107); CREATININE 3.04 MG/DL (0.40-0.90); GLUCOSE 212 MG/DL (70-104); PHOSPHORUS 4.7 MG/DL (2.3-4.5); POTASSIUM 3.9 MMOL/L (3.5-5.1); SODIUM 134 MMOL/L (135-145); TOTAL CARBON DIOXIDE 17.4 MMOL/L (24-32); TOTAL PROTEIN 5.3 G/DL (6.4-8.2); eGFR 15 ML/MIN
[2019-04-11] MEDS: sodium chloride 0.45% 1,000 ML IV SCH (07:03)
[2019-04-11] MEDS: K, MAG and/or Phos replacement - Verify level? MC SCH (07:25)
[2019-04-11] MEDS: levoTHYROXINE 25mcg tablet PO SCH (07:41)
[2019-04-11] MEDS: fenofibrate 145mg tablet PO SCH (07:42)
[2019-04-11] MEDS: aspirin 81mg tab.chew PO SCH (07:42)
[2019-04-11] MEDS: venlafaxine XR 75mg capsule (Q24H) PO SCH (07:44)
[2019-04-11] MEDS: pantoprazole 40mg Tablet.DR PO SCH (07:44)
[2019-04-11] MEDS: pregabalin 75mg capsule PO SCH (07:44)
[2019-04-11] MEDS: docusate sod 100mg capsule PO SCH ×2 (07:45→19:09)
[2019-04-11] MEDS: atorvastatin 20mg tablet PO SCH (07:45)
[2019-04-11] MEDS: clopidogrel 75mg tablet PO SCH (07:45)
[2019-04-11] MEDS ORDERED: epoetin 20,000 units/ml inj IV ONE (09:10)
[2019-04-11] MEDS: iron sucrose complex injection 300 MG in normal saline 250ml IV soln 250 ML IV SCH (13:29)
[2019-04-11] MEDS: insulin Lispro (HumaLOG) vial - multi-dose SQ SCH ×2 (13:56→19:11)
[2019-04-11 15:55] LABS: OSMOLALITY UA 377 MOSM/K (50-1400)
[2019-04-11 15:58] LABS: SODIUM,URINE RANDOM < 15 MEQ/L
--- NOTE | 2019-04-11 18:30 | NUR ---
Patient in room CICU 2014. I have received report from Roro ESPINOZA and had the opportunity to ask questions and assume patient care.
[2019-04-11] MEDS: heparin 25,000 UNIT/250ml bag 250 ML IV SCH (21:13)
[2019-04-11] MEDS: insulin glargine (Lantus) pen - multi-dose SQ SCH (21:25)
--- NOTE | 2019-04-11 22:00 | NUR ---
levophed and dobutamine are both off at 2200. tolerating well so far. continue to monitor.
[2019-04-12] VITALS (27 sets, daily range): BP systolic 77–118; BP diastolic 42–92
[2019-04-12] MEDS: DEXTROSE IV SCH (01:57)
[2019-04-12] MEDS: SODIUM BICARBONATE IV SCH (01:57)
[2019-04-12] MEDS: WATER IV SCH (01:57)
[2019-04-12 04:22] LABS: ALANINE AMINOTRANSFERASE 317 U/L (12-78); ALBUMIN 2.3 G/DL (3.4-5.0); ALBUMIN/GLOBULIN RATIO 0.7 (1.1-1.5); ALKALINE PHOSPHATASE 87 IU/L (46-116); ANION GAP 9 (8-16); ASPARTATE AMINO TRANSFERASE 681 U/L (10-37); BASOPHILS % (AUTO) 0.3 % (0-1); BILIRUBIN,TOTAL 0.5 MG/DL (0.1-1.0); BLOOD UREA NITROGEN 59 MG/DL (7-18); BUN/CREATININE RATIO 19.1 (6.6-38.0); CALCIUM 8.8 MG/DL (8.5-10.1); CHLORIDE 106 MMOL/L (99-107); CREATININE 3.09 MG/DL (0.40-0.90); EOSINOPHILS % (AUTO) 0.5 % (0-6); GLUCOSE 116 MG/DL (70-104); HEMATOCRIT 23.5 % (35.0-45.0); LYMPHOCYTES # (AUTO) 1.1 X10'3 (1.1-4.8); LYMPHOCYTES % (AUTO) 13.5 % (21-51); MEAN CORPUSCULAR HEMOGLOBIN 29.8 PG (27.0-31.0); MEAN CORPUSCULAR VOLUME 87.5 FL (78-98); MEAN PLATELET VOLUME 9.2 FL (7.4-10.4); MONOCYTES # (AUTO) 0.7 X10'3 (0-0.9); MONOCYTES % (AUTO) 9.1 % (2-12); NEUTROPHILS # (AUTO) 6.2 X10'3 (1.8-7.7); NEUTROPHILS % (AUTO) 76.6 % (42-75); PHOSPHORUS 4.5 MG/DL (2.3-4.5); PLATELET COUNT 193 X10'3 (140-440); POTASSIUM 3.7 MMOL/L (3.5-5.1); RED BLOOD COUNT 2.68 X10'6 (4.20-5.60); RED CELL DISTRIBUTION WIDTH 16.2 % (11.5-14.5); SODIUM 139 MMOL/L (135-145); TOTAL CARBON DIOXIDE 24.5 MMOL/L (24-32); TOTAL PROTEIN 5.5 G/DL (6.4-8.2); WHITE BLOOD COUNT 8.1 X10'3 (4.5-11.0); eGFR 15 ML/MIN
--- NOTE | 2019-04-12 06:28 | NUR ---
Problems reprioritized. Patient report given, questions answered & plan of care reviewed with Meri ESPINOZA.
[2019-04-12] MEDS: K, MAG and/or Phos replacement - Verify level? MC SCH (08:00)
[2019-04-12] MEDS: iron sucrose complex injection 300 MG in normal saline 250ml IV soln 250 ML IV SCH (09:30)
[2019-04-12] MEDS: pantoprazole 40mg Tablet.DR PO SCH (10:15)
[2019-04-12] MEDS: levoTHYROXINE 25mcg tablet PO SCH (10:15)
[2019-04-12] MEDS: aspirin 81mg tab.chew PO SCH (10:15)
[2019-04-12] MEDS: venlafaxine XR 75mg capsule (Q24H) PO SCH (10:15)
[2019-04-12] MEDS: pregabalin 75mg capsule PO SCH (10:15)
[2019-04-12] MEDS: atorvastatin 20mg tablet PO SCH (10:15)
[2019-04-12] MEDS: fenofibrate 145mg tablet PO SCH (10:15)
[2019-04-12] MEDS: docusate sod 100mg capsule PO SCH ×2 (10:15→19:48)
[2019-04-12] MEDS: clopidogrel 75mg tablet PO SCH (10:15)
[2019-04-12] MEDS: NORepinephrine 8mg/ 250ml NS 250 ML IV SCH (12:39)
--- NOTE | 2019-04-12 18:20 | NUR ---
Patient in room CICU 2014. I have received report from OLGA Jerez and had the opportunity to ask questions and assume patient care.
[2019-04-12] MEDS: insulin Lispro (HumaLOG) vial - multi-dose SQ SCH ×2 (19:51→21:18)
[2019-04-12] MEDS: insulin glargine (Lantus) pen - multi-dose SQ SCH (21:17)
[2019-04-12] MEDS: sodium chloride 0.45% 1,000 ML IV SCH (23:03)
[2019-04-13] VITALS (20 sets, daily range): BP systolic 93–131; BP diastolic 58–84
[2019-04-13 02:56] LABS: BASOPHILS % (AUTO) 0.4 % (0-1); EOSINOPHILS # (AUTO) 0.1 X10'3 (0-0.9); EOSINOPHILS % (AUTO) 0.6 % (0-6); HEMATOCRIT 28.8 % (35.0-45.0); HEMOGLOBIN 9.8 g/dl (12.0-16.0); LYMPHOCYTES # (AUTO) 1.3 X10'3 (1.1-4.8); MEAN CORPUSCULAR HGB CONC 34.1 g/dL (33.0-36.5); MEAN CORPUSCULAR VOLUME 88.1 FL (78-98); MONOCYTES # (AUTO) 0.9 X10'3 (0-0.9); MONOCYTES % (AUTO) 8.2 % (2-12); NEUTROPHILS # (AUTO) 8.7 X10'3 (1.8-7.7); NEUTROPHILS % (AUTO) 78.8 % (42-75); PLATELET COUNT 215 X10'3 (140-440); RED BLOOD COUNT 3.27 X10'6 (4.20-5.60); RED CELL DISTRIBUTION WIDTH 15.9 % (11.5-14.5); WHITE BLOOD COUNT 11.1 X10'3 (4.5-11.0)
[2019-04-13 03:08] LABS: ALANINE AMINOTRANSFERASE 354 U/L (12-78); ALBUMIN 2.6 G/DL (3.4-5.0); ALBUMIN/GLOBULIN RATIO 0.7 (1.1-1.5); ALKALINE PHOSPHATASE 109 IU/L (46-116); ANION GAP 12 (8-16); ASPARTATE AMINO TRANSFERASE 328 U/L (10-37); BILIRUBIN,TOTAL 0.7 MG/DL (0.1-1.0); BLOOD UREA NITROGEN 63 MG/DL (7-18); BUN/CREATININE RATIO 20.1 (6.6-38.0); CALCIUM 8.9 MG/DL (8.5-10.1); CHLORIDE 105 MMOL/L (99-107); CREATININE 3.14 MG/DL (0.40-0.90); GLUCOSE 171 MG/DL (70-104); MAGNESIUM 2.2 MG/DL (1.5-2.4); PHOSPHORUS 4.8 MG/DL (2.3-4.5); SODIUM 140 MMOL/L (135-145); TOTAL CARBON DIOXIDE 23.5 MMOL/L (24-32); TOTAL PROTEIN 6.2 G/DL (6.4-8.2); eGFR 15 ML/MIN
[2019-04-13] MEDS: NORepinephrine 8mg/ 250ml NS 250 ML IV SCH (06:15)
[2019-04-13] MEDS: K, MAG and/or Phos replacement - Verify level? MC SCH (08:00)
[2019-04-13] MEDS: pregabalin 75mg capsule PO SCH (09:03)
[2019-04-13] MEDS: clopidogrel 75mg tablet PO SCH (09:04)
[2019-04-13] MEDS: aspirin 81mg tab.chew PO SCH (09:04)
[2019-04-13] MEDS: fenofibrate 145mg tablet PO SCH (09:04)
[2019-04-13] MEDS: docusate sod 100mg capsule PO SCH ×2 (09:04→19:13)
[2019-04-13] MEDS: levoTHYROXINE 25mcg tablet PO SCH (09:05)
[2019-04-13] MEDS: venlafaxine XR 75mg capsule (Q24H) PO SCH (09:05)
[2019-04-13] MEDS: insulin Lispro (HumaLOG) vial - multi-dose SQ SCH ×3 (09:10→19:12)
[2019-04-13] MEDS ORDERED: furosemide 40mg/4ml inj IV ONE (10:45)
[2019-04-13] MEDS: pantoprazole 40mg Tablet.DR PO SCH (12:19)
[2019-04-13] MEDS: iron sucrose complex injection 300 MG in normal saline 250ml IV soln 250 ML IV SCH (14:02)
[2019-04-13] MEDS: atorvastatin 20mg tablet PO SCH (14:08)
--- NOTE | 2019-04-13 15:22 | NUR ---
Initial: Pt admitted for STEMI s/p right coronary stent. Pt gained 3kg since admission, BMI likely still 34 as pt with positive fluid balance of 4L. Pt eating poor with PO intake 25% avg meals on carb controlled diet. RD continuous improvement intern visited pt at bedside and provided alternative carb controlled food write in list and to encourage PO intake. Pt reports a poor appetite, requesting bananas and fruit yogurt added to her dinner tray cass, d/w dietary. Pt reports having a BM today, denies any constipation. Will continue to monitor. Recommendations: 1. continue carb controlled diet; encourage PO intake 2. monitor need for ONS; honor food preferences 3. bowel care as needed 3. weight per rx Addendum: 04/13/19 at 1523 by Wing Carson ROTHMAN Amended: Links added. Addendum: 04/13/19 at [address] STEPHAN Approves
--- NOTE | 2019-04-13 15:26 | NUR ---
I have received report from Meri ESPINOZA and had the opportunity to ask questions and assume patient care.
[2019-04-13 15:39] LABS: UREA NITROGEN 24HR,URINE 6.5 GM/24HR (7-20)
--- NOTE | 2019-04-13 16:20 | NUR ---
Pt. arrived from ICU. Pt. made comfortable. Pt. does not have any complaints at this time.
--- NOTE | 2019-04-13 16:30 | NUR ---
Student documentation: I have reviewed and agree with all interventions, assessments performed and documented by BarrettJANETTE whaley Rn student. Student Medication Administration: For this medication-pass time frame, all medication were reviewed, dispensed, administered and documented per hospital policy by JANETTE Hyde Rn student.
--- NOTE | 2019-04-13 18:16 | NUR ---
Problems reprioritized. Patient report given, questions answered & plan of care reviewed with Sangeeta ESPINOZA.
--- NOTE | 2019-04-13 18:25 | NUR ---
Patient in room MED 315. I have received report from Dallas ESPINOZA and had the opportunity to ask questions and assume patient care.
[2019-04-13] MEDS: polyethylene glycol 3350 17gm powd pack PO SCH (20:47)
[2019-04-13] MEDS: insulin glargine (Lantus) pen - multi-dose SQ SCH (20:53)
[2019-04-14] VITALS (24 sets, daily range): BP systolic 91–136; BP diastolic 41–95
[2019-04-14 02:01] LABS: BASOPHILS % (AUTO) 0.3 % (0-1); EOSINOPHILS # (AUTO) 0.1 X10'3 (0-0.9); EOSINOPHILS % (AUTO) 0.6 % (0-6); HEMATOCRIT 30.7 % (35.0-45.0); HEMOGLOBIN 10.4 g/dl (12.0-16.0); LYMPHOCYTES # (AUTO) 2.1 X10'3 (1.1-4.8); MEAN CORPUSCULAR HEMOGLOBIN 30.3 PG (27.0-31.0); MEAN CORPUSCULAR HGB CONC 33.7 g/dL (33.0-36.5); MEAN CORPUSCULAR VOLUME 89.8 FL (78-98); MEAN PLATELET VOLUME 9.2 FL (7.4-10.4); MONOCYTES % (AUTO) 9.1 % (2-12); NEUTROPHILS # (AUTO) 8.3 X10'3 (1.8-7.7); PLATELET COUNT 262 X10'3 (140-440); RED BLOOD COUNT 3.42 X10'6 (4.20-5.60); WHITE BLOOD COUNT 11.5 X10'3 (4.5-11.0)
[2019-04-14 02:13] LABS: ALANINE AMINOTRANSFERASE 402 U/L (12-78); ALBUMIN 2.7 G/DL (3.4-5.0); ALBUMIN/GLOBULIN RATIO 0.8 (1.1-1.5); ALKALINE PHOSPHATASE 136 IU/L (46-116); ANION GAP 11 (8-16); ASPARTATE AMINO TRANSFERASE 322 U/L (10-37); BILIRUBIN,TOTAL 0.7 MG/DL (0.1-1.0); BLOOD UREA NITROGEN 70 MG/DL (7-18); BUN/CREATININE RATIO 22.4 (6.6-38.0); CALCIUM 9.3 MG/DL (8.5-10.1); CHLORIDE 106 MMOL/L (99-107); CREATININE 3.12 MG/DL (0.40-0.90); GLUCOSE 117 MG/DL (70-104); MAGNESIUM 2.2 MG/DL (1.5-2.4); PHOSPHORUS 4.1 MG/DL (2.3-4.5); POTASSIUM 3.6 MMOL/L (3.5-5.1); SODIUM 142 MMOL/L (135-145); TOTAL CARBON DIOXIDE 24.9 MMOL/L (24-32); TOTAL PROTEIN 6.3 G/DL (6.4-8.2); eGFR 15 ML/MIN
--- NOTE | 2019-04-14 06:19 | NUR ---
Problems reprioritized. Patient report given, questions answered & plan of care reviewed with Stephanie ESPINOZA.
--- NOTE | 2019-04-14 07:55 | NUR ---
PT IN VTACH X 5 MINUTES RATE 180S-200 ASSISTED PATIENT BACK TO BED FROM CHAIR (SHE WAS EATING BREAKFAST). CHARGE NURSE AWARE AND CALLED CODE BLUE. CODE TEAM ARRIVED WITH DR. ZHOU, WHO CONFIRMED PATIENT IS IN VTACH. PATIENT CONTINUED TO BE ALERT BUT SYMPTOMS OF SHORTNESS OF BREATH AND JITTERY. CODE CART PAD APPLIED TO PATIENT, SHOCK ORDERED BY DR. ZHOU (120J SHOCK GIVEN). PATIENT RETURNED TO SINUS RHYTHM/SINUS TACH LOW 100S. DR. CARDENAS NOTIFIED VIA TELEPHONE BY DR. ZHOU. ORDER FOR AMIODARONE BOLUS IV NOW. EKG DONE. BP 120/67. WILL CONTINUE TO MONITOR.
[2019-04-14] MEDS: K, MAG and/or Phos replacement - Verify level? MC SCH (08:00)
[2019-04-14] MEDS: atorvastatin 20mg tablet PO SCH (08:00)
[2019-04-14] MEDS: docusate sod 100mg capsule PO SCH ×2 (08:00→20:08)
[2019-04-14] MEDS ORDERED: amiodarone 150mg/dext, iso-os 100 ML IV ONE (08:10)
--- NOTE | 2019-04-14 08:40 | NUR ---
DR. CARDENAS PRESENT TO EXAMINE PT AND LOOK AT STRIPS FROM EPISODE ORDER FOR AMIODARONE GTT, AND NEW EKG NOTIFIED HIM OF TROPONIN OF 14.81 NO OTHER ORDERS AT THIS TIME. PER DR. CARDENAS HE WILL TALK TO DR. ANDUJAR ABOUT POSSIBLE AICD FOR PATIENT, WHO WAS ALSO MADE AWARE OF PLAN.
[2019-04-14] MEDS: clopidogrel 75mg tablet PO SCH (09:00)
[2019-04-14] MEDS: aspirin 81mg tab.chew PO SCH (09:00)
[2019-04-14] MEDS: levoTHYROXINE 25mcg tablet PO SCH (09:00)
[2019-04-14] MEDS: venlafaxine XR 75mg capsule (Q24H) PO SCH (09:00)
[2019-04-14] MEDS: pregabalin 75mg capsule PO SCH (09:00)
[2019-04-14] MEDS: fenofibrate 145mg tablet PO SCH (09:00)
[2019-04-14] MEDS: pantoprazole 40mg Tablet.DR PO SCH (09:00)
[2019-04-14] MEDS: amiodarone/D5 360MG/200ML BAG 200 ML IV SCH ×3 (09:01→23:39)
--- NOTE | 2019-04-14 09:30 | NUR ---
PATIENT IN SVT [address] ZHOU AND DR. CARDENAS. DR. CARDENAS ORDERED 2.5MG IV LOPRESSOR NOW AND TRANSFER TO ICU. PANEL BEATER NOTIFIED.
[2019-04-14] MEDS ORDERED: metoprolol tartrate 1mg/ml inj IV ONE (09:35)
--- NOTE | 2019-04-14 10:30 | NUR ---
UPPER ARM IV STARTED BY PICC NURSE PT ONLY HAD 22G IN HER HAND, NURSING TRIED X2 TO GET ANOTHER IV BUT UNSUCCESSFUL
--- NOTE | 2019-04-14 10:55 | NUR ---
PT TRANSFERRED TO 2014, ALL BELONGINGS ACCOUNTED FOR. PATIENT ALERT AND ORIENTED, VITAL SIGNS STABLE.
--- NOTE | 2019-04-14 11:00 | NUR ---
Pt. to room 2014 from ACCE unit on Amiodarone gtt. Pt. A&O. Denies c/o. VSS.
--- NOTE | 2019-04-14 11:12 | NUR ---
CALLED PT'S DAUGHTER TO INFORM HER OF ROOM CHANGE. MESSAGE LEFT BY RN
--- NOTE | 2019-04-14 12:00 | NUR ---
Dr. Edwards in to see pt. States pt. may need an AICD. Dr. Thomas to consult.
[2019-04-14] MEDS: insulin Lispro (HumaLOG) vial - multi-dose SQ SCH ×2 (13:36→19:59)
--- NOTE | 2019-04-14 14:12 | NUR ---
Dtr. Nelda at bedside. Visibly upset, crying re. the events that took place that lead pt. back to critical care. RN answered questions, reassured dtr. as best as possible. Pt. SOB. Up to 4L 02 via nasal canula, using accessory muscles. RT paged for PRN treatment.
[2019-04-14] MEDS ORDERED: furosemide 10 MG/1 ML 10ml inj IV ONE (14:45)
[2019-04-14] MEDS ORDERED: nitroGLYCERIN 1gm ointment UD TP ONE (14:45)
--- NOTE | 2019-04-14 14:50 | NUR ---
Dr. Alvarado notified of pt's SOB including accessory muscle use, increase in oxygen demand, + fluid balance over last few days. Multiple orders received from Dr. Alvarado including drawing a Troponin. Dr. Alvarado stated he wanted to be called with an abnormal Troponin result despite that fact that pt. was shocked earlier today. RT notified of new orders.
[2019-04-14 15:31] LABS: MAGNESIUM 2.2 MG/DL (1.5-2.4); PHOSPHORUS 5.3 MG/DL (2.3-4.5); POTASSIUM 4.9 MMOL/L (3.5-5.1)
[2019-04-14 15:39] LABS: TROPONIN I 12.03 NG/ML (0.0-0.05)
[2019-04-14 16:10] LABS: ABG BASE EXCESS -4.5 mmol/L (-2.0-3.0); ABG HCO3 18.2 mmol/L (22.0-26.0); ABG OXYGEN SATURATION 96.6 % (95-98); ABG PCO2 (T) 26.2 mmHg (35.0-45.0); ABG PH (T) 7.459 (7.350-7.450); ABG PO2 (T) 91.6 mmHg (83-108); ALLEN'S TEST POSITIVE; FCOHb 0.3 % (0.5-1.5); FLOW 4 L/min; FMetHb 0.2 % (0.3-1.12); FO2Hb 96.1 % (94-100); TOTAL HEMOGLOBIN 10.4 G/dl (12.0-16.0)
[2019-04-14] MEDS: insulin glargine (Lantus) pen - multi-dose SQ SCH (20:01)
[2019-04-14] MEDS: polyethylene glycol 3350 17gm powd pack PO SCH (20:08)
[2019-04-15] VITALS (23 sets, daily range): BP systolic 93–139; BP diastolic 53–99
[2019-04-15] MEDS: amiodarone/D5 360MG/200ML BAG 200 ML IV SCH ×5 (02:52→21:35)
[2019-04-15 04:57] LABS: BASOPHILS % (AUTO) 0.2 % (0-1); EOSINOPHILS % (AUTO) 0.1 % (0-6); HEMATOCRIT 28.6 % (35.0-45.0); HEMOGLOBIN 9.5 g/dl (12.0-16.0); LYMPHOCYTES # (AUTO) 1.6 X10'3 (1.1-4.8); LYMPHOCYTES % (AUTO) 12.7 % (21-51); MEAN CORPUSCULAR HEMOGLOBIN 29.9 PG (27.0-31.0); MEAN CORPUSCULAR HGB CONC 33.1 g/dL (33.0-36.5); MEAN CORPUSCULAR VOLUME 90.3 FL (78-98); MEAN PLATELET VOLUME 9.7 FL (7.4-10.4); MONOCYTES # (AUTO) 1.4 X10'3 (0-0.9); MONOCYTES % (AUTO) 10.9 % (2-12); NEUTROPHILS # (AUTO) 9.5 X10'3 (1.8-7.7); NEUTROPHILS % (AUTO) 76.1 % (42-75); PLATELET COUNT 225 X10'3 (140-440); RED BLOOD COUNT 3.17 X10'6 (4.20-5.60); RED CELL DISTRIBUTION WIDTH 16.3 % (11.5-14.5); WHITE BLOOD COUNT 12.5 X10'3 (4.5-11.0)
[2019-04-15 05:21] LABS: ALBUMIN 2.5 G/DL (3.4-5.0); ALBUMIN/GLOBULIN RATIO 0.8 (1.1-1.5); ALKALINE PHOSPHATASE 136 IU/L (46-116); ANION GAP 14 (8-16); BILIRUBIN,TOTAL 1.3 MG/DL (0.1-1.0); BLOOD UREA NITROGEN 81 MG/DL (7-18); BUN/CREATININE RATIO 23.3 (6.6-38.0); CALCIUM 9.2 MG/DL (8.5-10.1); CHLORIDE 103 MMOL/L (99-107); CREATININE 3.47 MG/DL (0.40-0.90); GLUCOSE 185 MG/DL (70-104); MAGNESIUM 2.1 MG/DL (1.5-2.4); PHOSPHORUS 5.1 MG/DL (2.3-4.5); POTASSIUM 4.7 MMOL/L (3.5-5.1); SODIUM 138 MMOL/L (135-145); TOTAL CARBON DIOXIDE 21.3 MMOL/L (24-32); TOTAL PROTEIN 5.7 G/DL (6.4-8.2); eGFR 13 ML/MIN
[2019-04-15 05:33] LABS: ALANINE AMINOTRANSFERASE 1805 U/L (12-78); ASPARTATE AMINO TRANSFERASE 6146 U/L (10-37)
[2019-04-15] MEDS: albuterol 2.5 MG/3 ML nebule NEB PRN ×4 (06:57→19:50)
[2019-04-15] MEDS: K, MAG and/or Phos replacement - Verify level? MC SCH (08:00)
[2019-04-15] MEDS: pantoprazole 40mg Tablet.DR PO SCH (08:18)
[2019-04-15] MEDS: docusate sod 100mg capsule PO SCH ×2 (08:19→20:00)
[2019-04-15] MEDS: atorvastatin 20mg tablet PO SCH (08:19)
[2019-04-15] MEDS: aspirin 81mg tab.chew PO SCH (08:19)
[2019-04-15] MEDS: venlafaxine XR 75mg capsule (Q24H) PO SCH (08:19)
[2019-04-15] MEDS: levoTHYROXINE 25mcg tablet PO SCH (08:19)
[2019-04-15] MEDS: fenofibrate 145mg tablet PO SCH (08:19)
[2019-04-15] MEDS: clopidogrel 75mg tablet PO SCH (08:19)
[2019-04-15] MEDS: pregabalin 75mg capsule PO SCH (08:20)
[2019-04-15] MEDS: insulin Lispro (HumaLOG) vial - multi-dose SQ SCH ×3 (09:08→20:48)
[2019-04-15] MEDS ORDERED: metoclopramide 10mg tablet PO PRN (10:50)
[2019-04-15] MEDS: amiodarone 200mg tablet PO SCH ×2 (11:31→20:43)
--- NOTE | 2019-04-15 14:01 | NUR ---
F/u: Pt continues to eat poorly with PO intake 25% avg meals. STEPHAN consumer insights intern visited pt at bedside, pt reports wanting a turkey sandwich for lunch and sherbet and dislikes pasta, d/w dietary. Denies other food preferences. [facility] 04/14. Will continue to monitor. Addendum: 04/15/19 at 1401 by Wing Carson ROTHMAN Amended: Links added. Addendum: 04/15/19 at [address] STEPHAN Approdamaris
[2019-04-15] MEDS: furosemide 20MG tablet PO SCH ×2 (14:08→20:43)
--- NOTE | 2019-04-15 16:39 | NUR ---
refused metasheb, but agreed to take svn. due to coarse wheezes throughout. Addendum: 04/15/19 at 1639 by Roney Saunders RT Amended: Links added.
--- NOTE | 2019-04-15 18:30 | NUR ---
Patient in room CICU 2009. I have received report from Melina ESPINOZA and had the opportunity to ask questions and assume patient care. Patient laying comfortably in bed with eyes closed, respirations even/unlabored and in no apparent distress. Vitals WNL at this time, patient in SR, saturating at 92% on room air. Will continue to monitor patient.
[2019-04-15] MEDS: zinc sulfate 220mg capsule PO SCH (20:43)
[2019-04-15] MEDS: insulin glargine (Lantus) pen - multi-dose SQ SCH (20:49)
[2019-04-15] MEDS: polyethylene glycol 3350 17gm powd pack PO SCH (21:00)
[2019-04-16] VITALS (26 sets, daily range): BP systolic 91–131; BP diastolic 59–78
[2019-04-16] MEDS ORDERED: amiodarone 150mg/dext, iso-os 100 ML IV ONE (01:05)
[2019-04-16] MEDS ORDERED: metoprolol tartrate 1mg/ml inj IV ONE ×2 (01:09→01:10)
[2019-04-16] MEDS: amiodarone/D5 360MG/200ML BAG 200 ML IV SCH ×4 (01:19→19:16)
--- NOTE | 2019-04-16 01:34 | NUR ---
Patient's rhythm converted into SVT with rate in 170s. Patient alert/oriented x4. Instructed patient to cough and bear down, no change in rhythm. BP 106/76. March Anay notified and at bedside to assess patient. New order received for amiodarone drip with bolus and 2.5mg lopressor IV push. Patient converted back into sinus rhythm during amiodarone bolus. Will continue to monitor patient closely.
[2019-04-16 04:57] LABS: BASOPHILS % (AUTO) 0.4 % (0-1); EOSINOPHILS % (AUTO) 0.1 % (0-6); HEMATOCRIT 30.3 % (35.0-45.0); LYMPHOCYTES # (AUTO) 1.5 X10'3 (1.1-4.8); LYMPHOCYTES % (AUTO) 10.9 % (21-51); MEAN CORPUSCULAR HEMOGLOBIN 30.7 PG (27.0-31.0); MEAN CORPUSCULAR HGB CONC 33.1 g/dL (33.0-36.5); MEAN CORPUSCULAR VOLUME 92.8 FL (78-98); MEAN PLATELET VOLUME 9.6 FL (7.4-10.4); MONOCYTES # (AUTO) 1.1 X10'3 (0-0.9); NEUTROPHILS % (AUTO) 80.6 % (42-75); PLATELET COUNT 233 X10'3 (140-440); RED BLOOD COUNT 3.27 X10'6 (4.20-5.60); RED CELL DISTRIBUTION WIDTH 17.1 % (11.5-14.5); WHITE BLOOD COUNT 13.6 X10'3 (4.5-11.0)
[2019-04-16 05:24] LABS: ALBUMIN 2.7 G/DL (3.4-5.0); ALBUMIN/GLOBULIN RATIO 0.8 (1.1-1.5); ALKALINE PHOSPHATASE 172 IU/L (46-116); ANION GAP 15 (8-16); BILIRUBIN,TOTAL 1.8 MG/DL (0.1-1.0); BLOOD UREA NITROGEN 86 MG/DL (7-18); BUN/CREATININE RATIO 22.3 (6.6-38.0); CALCIUM 9.4 MG/DL (8.5-10.1); CHLORIDE 102 MMOL/L (99-107); CREATININE 3.85 MG/DL (0.40-0.90); GLUCOSE 233 MG/DL (70-104); MAGNESIUM 2.4 MG/DL (1.5-2.4); PHOSPHORUS 5.8 MG/DL (2.3-4.5); POTASSIUM 4.6 MMOL/L (3.5-5.1); SODIUM 137 MMOL/L (135-145); TOTAL PROTEIN 6.1 G/DL (6.4-8.2); eGFR 12 ML/MIN
[2019-04-16 05:33] LABS: ALANINE AMINOTRANSFERASE 2823 U/L (12-78)
[2019-04-16 05:41] LABS: ASPARTATE AMINO TRANSFERASE 5148 U/L (10-37)
--- NOTE | 2019-04-16 06:35 | NUR ---
Problems reprioritized. Patient report given, questions answered & plan of care reviewed with Yisel ESPINOZA.
[2019-04-16] MEDS: zinc sulfate 220mg capsule PO SCH (07:10)
[2019-04-16] MEDS: fenofibrate 145mg tablet PO SCH (07:15)
[2019-04-16] MEDS: atorvastatin 20mg tablet PO SCH (07:16)
[2019-04-16] MEDS: aspirin 81mg tab.chew PO SCH (07:16)
[2019-04-16] MEDS: K, MAG and/or Phos replacement - Verify level? MC SCH (07:16)
[2019-04-16] MEDS: clopidogrel 75mg tablet PO SCH (07:16)
[2019-04-16] MEDS: docusate sod 100mg capsule PO SCH ×2 (07:16→19:15)
[2019-04-16] MEDS: albuterol 2.5 MG/3 ML nebule NEB PRN (07:51)
[2019-04-16] MEDS: furosemide 20MG tablet PO SCH ×3 (08:00→21:01)
[2019-04-16] MEDS: pregabalin 75mg capsule PO SCH (08:00)
[2019-04-16] MEDS: venlafaxine XR 75mg capsule (Q24H) PO SCH (08:00)
[2019-04-16] MEDS: levoTHYROXINE 25mcg tablet PO SCH (08:45)
[2019-04-16] MEDS: pantoprazole 40mg Tablet.DR PO SCH ×3 (08:45→19:16)
[2019-04-16] MEDS ORDERED: heparin 1,000unit/ml 10ml vial 10 ML ONE (11:23)
[2019-04-16] MEDS ORDERED: LIDOcaine 1%/PF 5ML 10 MG/ML VIAL ONE (11:23)
[2019-04-16] MEDS ORDERED: fentaNYL/PF 50MCG/1 ML 2ML syringe ONE (11:24)
[2019-04-16] MEDS ORDERED: midazolam 2 mg/2 ml injection ONE (11:24)
--- NOTE | 2019-04-16 11:30 | NUR ---
Down to IR for dialysis line placement.
--- NOTE | 2019-04-16 12:20 | NUR ---
Returned from IR
[2019-04-16] MEDS: insulin Lispro (HumaLOG) vial - multi-dose SQ SCH (12:59)
[2019-04-16 13:15] LABS: HEMATOCRIT 31.5 % (35.0-45.0); HEMOGLOBIN 10.2 g/dl (12.0-16.0); MEAN CORPUSCULAR HEMOGLOBIN 29.6 PG (27.0-31.0); MEAN CORPUSCULAR HGB CONC 32.2 g/dL (33.0-36.5); MEAN CORPUSCULAR VOLUME 91.9 FL (78-98); MEAN PLATELET VOLUME 9.7 FL (7.4-10.4); PLATELET COUNT 220 X10'3 (140-440); RED BLOOD COUNT 3.43 X10'6 (4.20-5.60); WHITE BLOOD COUNT 19.2 X10'3 (4.5-11.0)
--- NOTE | 2019-04-16 13:16 | NUR ---
Kelvin count consult: Pt currently NPO for OR to have femoral dialysis cath per MD note. Pending dialysis after catheter placement. Prior to NPO, pt had poor PO intake 25% avg meals not meeting nutrient needs. Per MD, pt is pre-renal. Per critical care rounds, protein/calorie count to start when diet is advanced to last for 5 days. UUN is available to calculate nitrogen balance after calorie count. LBM 04/15. Will continue to monitor. Recommendations: 1. advanced diet as medically indicated to renal, carb controlled diet 2. monitor need for ONS when diet advanced; honor food preferences 3. bowel care as needed 4. weight per rx 5. Noted Phos is high, will d/w MD at critical care rounds Addendum: 04/16/19 at 1316 by Wing Carson ROTHMAN Amended: Links added. Addendum: 04/16/19 at [address] RD agree with note
[2019-04-16 13:28] LABS: PARTIAL THROMBOPLASTIN TIME 30 SECONDS (22-32)
--- NOTE | 2019-04-16 15:00 | NUR ---
Pt refusing MetaNeb breathing treatments
[2019-04-16 15:57] LABS: OCCULT BLOOD STOOL POSITIVE (Neg)
--- NOTE | 2019-04-16 18:28 | NUR ---
Problems reprioritized. Patient report given, questions answered & plan of care reviewed with Courtney ESPINOZA.
[2019-04-16] MEDS: polyethylene glycol 3350 17gm powd pack PO SCH (21:00)
[2019-04-16] MEDS: insulin glargine (Lantus) pen - multi-dose SQ SCH (21:11)
[2019-04-16 21:48] LABS: HEMATOCRIT 33.5 % (35.0-45.0); HEMOGLOBIN 10.6 g/dl (12.0-16.0); MEAN CORPUSCULAR HEMOGLOBIN 29.7 PG (27.0-31.0); MEAN CORPUSCULAR HGB CONC 31.8 g/dL (33.0-36.5); MEAN CORPUSCULAR VOLUME 93.6 FL (78-98); MEAN PLATELET VOLUME 10.1 FL (7.4-10.4); PLATELET COUNT 213 X10'3 (140-440); RED BLOOD COUNT 3.58 X10'6 (4.20-5.60); RED CELL DISTRIBUTION WIDTH 17.4 % (11.5-14.5); WHITE BLOOD COUNT 24.2 X10'3 (4.5-11.0)
[2019-04-17] VITALS (24 sets, daily range): BP systolic 67–137; BP diastolic 12–72
[2019-04-17] MEDS: amiodarone/D5 360MG/200ML BAG 200 ML IV SCH ×3 (00:11→14:40)
[2019-04-17 06:01] LABS: BASOPHILS % (AUTO) 0.1 % (0-1); EOSINOPHILS % (AUTO) 0 % (0-6); HEMATOCRIT 31.1 % (35.0-45.0); HEMOGLOBIN 10.3 g/dl (12.0-16.0); LYMPHOCYTES # (AUTO) 1.2 X10'3 (1.1-4.8); LYMPHOCYTES % (AUTO) 5.7 % (21-51); MEAN CORPUSCULAR HEMOGLOBIN 30.9 PG (27.0-31.0); MEAN CORPUSCULAR HGB CONC 33.1 g/dL (33.0-36.5); MEAN CORPUSCULAR VOLUME 93.5 FL (78-98); MEAN PLATELET VOLUME 10.1 FL (7.4-10.4); MONOCYTES # (AUTO) 1.5 X10'3 (0-0.9); MONOCYTES % (AUTO) 7.2 % (2-12); NEUTROPHILS # (AUTO) 18.3 X10'3 (1.8-7.7); PLATELET COUNT 205 X10'3 (140-440); RED BLOOD COUNT 3.33 X10'6 (4.20-5.60); WHITE BLOOD COUNT 21.1 X10'3 (4.5-11.0)
[2019-04-17 06:38] LABS: ALBUMIN 2.8 G/DL (3.4-5.0); ALBUMIN/GLOBULIN RATIO 0.9 (1.1-1.5); ALKALINE PHOSPHATASE 190 IU/L (46-116); ANION GAP 18 (8-16); BILIRUBIN,TOTAL 3.3 MG/DL (0.1-1.0); BLOOD UREA NITROGEN 105 MG/DL (7-18); BUN/CREATININE RATIO 23.6 (6.6-38.0); CALCIUM 8.9 MG/DL (8.5-10.1); CHLORIDE 99 MMOL/L (99-107); CREATININE 4.44 MG/DL (0.40-0.90); GLUCOSE 199 MG/DL (70-104); MAGNESIUM 2.4 MG/DL (1.5-2.4); PHOSPHORUS 7.3 MG/DL (2.3-4.5); POTASSIUM 4.9 MMOL/L (3.5-5.1); SODIUM 139 MMOL/L (135-145); TOTAL CARBON DIOXIDE 21.7 MMOL/L (24-32); eGFR 10 ML/MIN
[2019-04-17 07:03] LABS: ASPARTATE AMINO TRANSFERASE > 7000 U/L (10-37)
[2019-04-17 07:04] LABS: ALANINE AMINOTRANSFERASE 4305 U/L (12-78)
[2019-04-17] MEDS: albuterol 2.5 MG/3 ML nebule NEB PRN (07:49)
[2019-04-17] MEDS: atorvastatin 20mg tablet PO SCH (08:00)
[2019-04-17] MEDS: fenofibrate 145mg tablet PO SCH (08:00)
[2019-04-17] MEDS: K, MAG and/or Phos replacement - Verify level? MC SCH (08:00)
[2019-04-17] MEDS: furosemide 20MG tablet PO SCH ×3 (08:00→20:43)
[2019-04-17] MEDS: pregabalin 75mg capsule PO SCH (08:00)
[2019-04-17] MEDS: zinc sulfate 220mg capsule PO SCH (08:00)
[2019-04-17] MEDS: aspirin 81mg tab.chew PO SCH (08:00)
[2019-04-17] MEDS: pantoprazole 40mg Tablet.DR PO SCH ×2 (08:00→20:00)
[2019-04-17] MEDS: clopidogrel 75mg tablet PO SCH (08:00)
[2019-04-17] MEDS: venlafaxine XR 75mg capsule (Q24H) PO SCH (08:00)
[2019-04-17] MEDS: levoTHYROXINE 25mcg tablet PO SCH (08:00)
[2019-04-17] MEDS: docusate sod 100mg capsule PO SCH ×2 (08:00→20:00)
[2019-04-17] MEDS ORDERED: DOBUTamine-DoBUTrex 500mg/D5W 250 ML IV SCH (08:10)
[2019-04-17] MEDS ORDERED: heparin 1,000unit/ml 10ml vial 10 ML IV ONE (08:14)
[2019-04-17] MEDS ORDERED: normal saline 1000ml 250 ML IV PRN (08:14)
[2019-04-17 08:20] LABS: ABG BASE EXCESS -17.6 mmol/L (-2.0-3.0); ABG HCO3 7.2 mmol/L (22.0-26.0); ABG OXYGEN SATURATION 92.5 % (95-98); ABG PCO2 (T) 16.3 mmHg (35.0-45.0); ABG PO2 (T) 78.7 mmHg (83-108); ALLEN'S TEST POSITIVE; FCOHb 0.3 % (0.5-1.5); FMetHb 0.2 % (0.3-1.12); TOTAL HEMOGLOBIN 11.5 G/dl (12.0-16.0)
[2019-04-17] MEDS ORDERED: heparin 1,000 units/ml 10ml inj HE ONE (08:20)
[2019-04-17] MEDS ORDERED: sodium bicarbonate (8.4%) inj. 1 MEQ/ML ML IV ONE ×2 (08:20)
[2019-04-17] MEDS ORDERED: sodium bicarbonate (8.4%) inj. 1 MEQ/ML ML ONE (08:25)
[2019-04-17] MEDS ORDERED: midazolam 2 mg/2 ml injection ONE (08:40)
[2019-04-17] MEDS ORDERED: NORepinephrine 8mg/ 250ml NS 250 ML IV ONE (08:54)
[2019-04-17] MEDS: NORepinephrine 8mg/ 250ml NS 250 ML IV SCH ×4 (08:55→23:47)
[2019-04-17] MEDS ORDERED: midazolam 100mg in NS 100ml 100 ML IV PRN ×3 (08:55→09:10)
[2019-04-17] MEDS ORDERED: calcium chloride inj. 10,000 MG in normal saline 500ml IV soln 400 ML IV PRN (09:05)
[2019-04-17] MEDS ORDERED: sodium phosphate inj. 30 MMOL in normal saline 250ml IV soln 250 ML IV PRN (09:05)
[2019-04-17] MEDS ORDERED: calcium chloride inj. 1,000 MG in normal saline 100ml IV soln 100 ML IV PRN (09:05)
[2019-04-17] MEDS ORDERED: magnesium 4gm in 100ml NS 100 ML IV PRN (09:05)
[2019-04-17] MEDS ORDERED: midazolam 2 mg/2 ml injection IV ONE (09:10)
[2019-04-17] MEDS: FENTANYL-0.9 % NACL/PF 100 ML IV PRN (09:30)
[2019-04-17 09:43] LABS: ANISOCYTOSIS 1+; ELLIPTOCYTES FEW; PLATELET ESTIMATE NORMAL; TOTAL CELLS COUNTED 100
[2019-04-17 09:44] LABS: POLYCHROMASIA FEW
--- NOTE | 2019-04-17 10:34 | NUR ---
Upon assessment, pt was found to be in increased respiratory distress, pt heart rate was elevated, BP was low, in fact, it could only be determined with manual BP cuff. Dr. Alvarado was notified of pt condition and he graciously came to the bedside in a rapid mannor. He evaluated pt and talked with her about her wishes regarding treatment. He then successfully placed a central line in the upper right IJ. While doing that procedure, it was determined that the pt needed to be intubated, and he then successfully intubated her. tool maker bench was notified per Dr. Alvarado, and she is now at the bedside starting dialysis. Stover was placed, OG tube will be placed for medication administration as soon as possible.
[2019-04-17 10:56] LABS: ABG BASE EXCESS -10.5 mmol/L (-2.0-3.0); ABG HCO3 14.5 mmol/L (22.0-26.0); ABG OXYGEN SATURATION 97.6 % (95-98); ABG PCO2 (T) 29.5 mmHg (35.0-45.0); ABG PH (T) 7.309 (7.350-7.450); ABG PO2 (T) 125.3 mmHg (83-108); ALLEN'S TEST POSITIVE; FCOHb 0.3 % (0.5-1.5); FMetHb 0.3 % (0.3-1.12); PEEP 5 cm H2O; RESPIRATORY RATE 14 b/min; TIDAL VOLUME 400 mL; TOTAL HEMOGLOBIN 11.1 G/dl (12.0-16.0)
[2019-04-17] MEDS ORDERED: CALCIUM CHLORIDE IV PRN (12:43)
[2019-04-17] MEDS ORDERED: NORMAL SALINE IV PRN (12:43)
[2019-04-17] MEDS: linezolid 600mg/300ml PREMIX 300 ML IV SCH ×2 (14:07→20:30)
[2019-04-17 14:17] LABS: HEMATOCRIT 35.6 % (35.0-45.0); HEMOGLOBIN 11.6 g/dl (12.0-16.0); MEAN CORPUSCULAR HEMOGLOBIN 29.9 PG (27.0-31.0); MEAN CORPUSCULAR HGB CONC 32.6 g/dL (33.0-36.5); MEAN CORPUSCULAR VOLUME 91.8 FL (78-98); MEAN PLATELET VOLUME 9.9 FL (7.4-10.4); PLATELET COUNT 227 X10'3 (140-440); RED BLOOD COUNT 3.88 X10'6 (4.20-5.60); RED CELL DISTRIBUTION WIDTH 17.4 % (11.5-14.5)
[2019-04-17 14:25] LABS: WHITE BLOOD COUNT 34.2 X10'3 (4.5-11.0)
--- NOTE | 2019-04-17 15:27 | NUR ---
Report to OLGA Marrero. He is taking over the patient as she will be on [facility]
[2019-04-17] MEDS: piperacillin/tazo 3.375gm/50ml 50 ML IV SCH ×3 (15:46→23:48)
[2019-04-17] MEDS ORDERED: methylPREDNISolone sod succ 125mg/2ml vial IV SCH (16:00)
--- NOTE | 2019-04-17 16:10 | NUR ---
Follow up: Patient is intubated and sedated.. Was pending ICD placement. Per Certified Professional Ergonomist note patient was rapidly deteriorating with shock liver or amiodarone; per the note patient will have HD then CVVH. Still NPO at this time. May benefit from tube feeding to meet needs on vent if prolonged intubation. Kelvin count consult: Pt currently NPO for OR to have femoral dialysis cath per MD note. Pending dialysis after catheter placement. Prior to NPO, pt had poor PO intake 25% avg meals not meeting nutrient needs. Per MD, pt is pre-renal. Per critical care rounds, protein/calorie count to start when diet is advanced to last for 5 days. UUN is available to calculate nitrogen balance after calorie count. LBM 04/15. Will continue to monitor. Recommendations: 1. IF tube feeding while intubated recommend using Vital High Protein at 50 ml/hr 1200 ml volume, 1200 cals, 105 g protein, and 1008 ml water. 2. IF tube feeding: daily weights, prealbumin q saturday and , water flush per MD 3. bowel care as needed 4. weight per rx Addendum: 04/17/19 at [address] Amended: Links added.
[2019-04-17] MEDS: NORMAL SALINE IV PRN ×2 (17:31→21:34)
[2019-04-17] MEDS: citrate dextrose 1000ml IV sol 1,000 ML IV PRN ×3 (17:31→22:13)
[2019-04-17] MEDS: CALCIUM CHLORIDE IV PRN ×2 (17:31→21:34)
[2019-04-17] MEDS: Duosol 4k/NO Calcium 5,000 ML HE SCH ×7 (17:32→22:32)
[2019-04-17 17:36] LABS: BASOPHILS # (AUTO) 0.1 X10'3 (0-0.2); BASOPHILS % (AUTO) 0.2 % (0-1); EOSINOPHILS % (AUTO) 0 % (0-6); LYMPHOCYTES # (AUTO) 1.3 X10'3 (1.1-4.8); LYMPHOCYTES % (AUTO) 3.3 % (21-51); MEAN CORPUSCULAR HGB CONC 32.4 g/dL (33.0-36.5); MEAN CORPUSCULAR VOLUME 92.6 FL (78-98); MEAN PLATELET VOLUME 9.5 FL (7.4-10.4); NEUTROPHILS # (AUTO) 35.6 X10'3 (1.8-7.7); NEUTROPHILS % (AUTO) 91.5 % (42-75); PLATELET COUNT 223 X10'3 (140-440); RED BLOOD COUNT 3.34 X10'6 (4.20-5.60); RED CELL DISTRIBUTION WIDTH 17.2 % (11.5-14.5)
[2019-04-17 17:40] LABS: WHITE BLOOD COUNT 38.9 X10'3 (4.5-11.0)
--- NOTE | 2019-04-17 17:41 | NUR ---
notified of critical WBC trending up
[2019-04-17 17:46] LABS: ALBUMIN 2.7 G/DL (3.4-5.0); ANION GAP 17 (8-16); BLOOD UREA NITROGEN 51 MG/DL (7-18); BUN/CREATININE RATIO 18.3 (6.6-38.0); CHLORIDE 102 MMOL/L (99-107); CREATININE 2.78 MG/DL (0.40-0.90); GLUCOSE 219 MG/DL (70-104); POTASSIUM 3.9 MMOL/L (3.5-5.1); SODIUM 142 MMOL/L (135-145); eGFR 17 ML/MIN
[2019-04-17 17:47] LABS: PHOSPHORUS 4.6 MG/DL (2.3-4.5)
--- NOTE | 2019-04-17 18:30 | NUR ---
Patient in room CICU 2009. I have received report from Janes ESPINOZA and had the opportunity to ask questions and assume patient care. CVVH running.
[2019-04-17 18:36] LABS: BASOPHILS # (AUTO) 0.1 X10'3 (0-0.2); BASOPHILS % (AUTO) 0.2 % (0-1); EOSINOPHILS % (AUTO) 0.1 % (0-6); HEMATOCRIT 31.1 % (35.0-45.0); HEMOGLOBIN 10.1 g/dl (12.0-16.0); LYMPHOCYTES # (AUTO) 1.6 X10'3 (1.1-4.8); MEAN CORPUSCULAR HEMOGLOBIN 30.1 PG (27.0-31.0); MEAN CORPUSCULAR HGB CONC 32.5 g/dL (33.0-36.5); MEAN CORPUSCULAR VOLUME 92.8 FL (78-98); MEAN PLATELET VOLUME 9.6 FL (7.4-10.4); MONOCYTES # (AUTO) 2.4 X10'3 (0-0.9); MONOCYTES % (AUTO) 5.9 % (2-12); NEUTROPHILS # (AUTO) 36.6 X10'3 (1.8-7.7); NEUTROPHILS % (AUTO) 89.8 % (42-75); PLATELET COUNT 241 X10'3 (140-440); RED BLOOD COUNT 3.36 X10'6 (4.20-5.60); RED CELL DISTRIBUTION WIDTH 17.4 % (11.5-14.5)
[2019-04-17 18:46] LABS: ALBUMIN 2.6 G/DL (3.4-5.0); ANION GAP 17 (8-16); BLOOD UREA NITROGEN 48 MG/DL (7-18); CHLORIDE 103 MMOL/L (99-107); CREATININE 2.66 MG/DL (0.40-0.90); GLUCOSE 224 MG/DL (70-104); POTASSIUM 3.9 MMOL/L (3.5-5.1); SODIUM 142 MMOL/L (135-145); TOTAL CARBON DIOXIDE 22.2 MMOL/L (24-32); eGFR 18 ML/MIN
[2019-04-17 18:47] LABS: PHOSPHORUS 4.3 MG/DL (2.3-4.5)
[2019-04-17] MEDS: calcium chloride inj. 1,000 MG in normal saline 100ml IV soln 100 ML IV PRN ×2 (18:47→22:03)
[2019-04-17 18:55] LABS: WHITE BLOOD COUNT 40.7 X10'3 (4.5-11.0)
[2019-04-17 19:18] LABS: CREATINE KINASE 232 U/L (26-192)
[2019-04-17] MEDS: potassium Cl 20mEq/100mL bag 100 ML IV PRN ×2 (19:33→20:53)
[2019-04-17 19:37] LABS: ANISOCYTOSIS 1+; NUCLEATED RED BLOOD CELLS 3 /100WBC (0-0); PLATELET ESTIMATE NORMAL; TOTAL CELLS COUNTED 100
[2019-04-17 19:38] LABS: POLYCHROMASIA FEW
[2019-04-17 19:59] LABS: BASOPHILS # (AUTO) 0.1 X10'3 (0-0.2); BASOPHILS % (AUTO) 0.3 % (0-1); EOSINOPHILS % (AUTO) 0.1 % (0-6); HEMATOCRIT 31.5 % (35.0-45.0); HEMOGLOBIN 10.2 g/dl (12.0-16.0); LYMPHOCYTES # (AUTO) 2.2 X10'3 (1.1-4.8); LYMPHOCYTES % (AUTO) 5.3 % (21-51); MEAN CORPUSCULAR HEMOGLOBIN 30.4 PG (27.0-31.0); MEAN CORPUSCULAR HGB CONC 32.5 g/dL (33.0-36.5); MEAN CORPUSCULAR VOLUME 93.4 FL (78-98); MEAN PLATELET VOLUME 9.5 FL (7.4-10.4); MONOCYTES # (AUTO) 2.4 X10'3 (0-0.9); MONOCYTES % (AUTO) 5.9 % (2-12); NEUTROPHILS % (AUTO) 88.4 % (42-75); PLATELET COUNT 237 X10'3 (140-440); RED BLOOD COUNT 3.37 X10'6 (4.20-5.60); RED CELL DISTRIBUTION WIDTH 17.8 % (11.5-14.5)
[2019-04-17] MEDS ORDERED: piperacillin/tazo 4.5gm/100ml IVPB IV SCH (20:00)
[2019-04-17 20:04] LABS: ALBUMIN 2.6 G/DL (3.4-5.0); ANION GAP 14 (8-16); BLOOD UREA NITROGEN 45 MG/DL (7-18); BUN/CREATININE RATIO 17.8 (6.6-38.0); CHLORIDE 102 MMOL/L (99-107); CREATININE 2.53 MG/DL (0.40-0.90); GLUCOSE 219 MG/DL (70-104); MAGNESIUM 1.9 MG/DL (1.5-2.4); POTASSIUM 3.9 MMOL/L (3.5-5.1); SODIUM 141 MMOL/L (135-145); TOTAL CARBON DIOXIDE 25.3 MMOL/L (24-32); eGFR 19 ML/MIN
[2019-04-17 20:07] LABS: WHITE BLOOD COUNT 40.7 X10'3 (4.5-11.0)
[2019-04-17 20:26] LABS: PHOSPHORUS 4.3 MG/DL (2.3-4.5)
[2019-04-17] MEDS ORDERED: digoxin 250mcg/ml 2ml ampule IV ONE (20:35)
[2019-04-17] MEDS: lactobacillus rhamnosus 10,000 MMU CELLS/CAPSULE PO SCH (20:44)
[2019-04-17] MEDS: insulin glargine (Lantus) pen - multi-dose SQ SCH (20:46)
[2019-04-17] MEDS: insulin Lispro (HumaLOG) vial - multi-dose SQ SCH (20:48)
[2019-04-17] MEDS: polyethylene glycol 3350 17gm powd pack PO SCH (20:49)
[2019-04-17 21:30] LABS: BASOPHILS # (AUTO) 0.1 X10'3 (0-0.2); BASOPHILS % (AUTO) 0.2 % (0-1); EOSINOPHILS # (AUTO) 0.2 X10'3 (0-0.9); EOSINOPHILS % (AUTO) 0.4 % (0-6); HEMATOCRIT 32.4 % (35.0-45.0); HEMOGLOBIN 10.4 g/dl (12.0-16.0); LYMPHOCYTES # (AUTO) 2.4 X10'3 (1.1-4.8); MEAN CORPUSCULAR HEMOGLOBIN 30.2 PG (27.0-31.0); MEAN CORPUSCULAR VOLUME 94.5 FL (78-98); MEAN PLATELET VOLUME 9.5 FL (7.4-10.4); MONOCYTES # (AUTO) 2.1 X10'3 (0-0.9); MONOCYTES % (AUTO) 5.2 % (2-12); NEUTROPHILS # (AUTO) 35.4 X10'3 (1.8-7.7); NEUTROPHILS % (AUTO) 88.2 % (42-75); PLATELET COUNT 248 X10'3 (140-440); RED BLOOD COUNT 3.43 X10'6 (4.20-5.60); RED CELL DISTRIBUTION WIDTH 17.9 % (11.5-14.5)
[2019-04-17 21:40] LABS: ALBUMIN 2.6 G/DL (3.4-5.0); ANION GAP 18 (8-16); BLOOD UREA NITROGEN 41 MG/DL (7-18); BUN/CREATININE RATIO 17.6 (6.6-38.0); CHLORIDE 102 MMOL/L (99-107); CREATININE 2.33 MG/DL (0.40-0.90); GLUCOSE 225 MG/DL (70-104); MAGNESIUM 1.9 MG/DL (1.5-2.4); POTASSIUM 4.7 MMOL/L (3.5-5.1); SODIUM 142 MMOL/L (135-145); TOTAL CARBON DIOXIDE 22.3 MMOL/L (24-32); eGFR 21 ML/MIN
[2019-04-17 21:43] LABS: PHOSPHORUS 4.4 MG/DL (2.3-4.5); WHITE BLOOD COUNT 40.2 X10'3 (4.5-11.0)
[2019-04-17] MEDS: methylPREDNISolone sod succ 125mg/2ml vial IV SCH (23:47)
[2019-04-18] VITALS (27 sets, daily range): BP systolic 90–119; BP diastolic 49–70
[2019-04-18] MEDS: citrate dextrose 1000ml IV sol 1,000 ML IV PRN ×3 (01:28→08:20)
[2019-04-18 01:46] LABS: BASOPHILS % (AUTO) 0.1 % (0-1); EOSINOPHILS % (AUTO) 0.1 % (0-6); HEMATOCRIT 33.3 % (35.0-45.0); HEMOGLOBIN 10.6 g/dl (12.0-16.0); LYMPHOCYTES # (AUTO) 2.7 X10'3 (1.1-4.8); LYMPHOCYTES % (AUTO) 7.6 % (21-51); MEAN CORPUSCULAR HEMOGLOBIN 29.8 PG (27.0-31.0); MEAN CORPUSCULAR HGB CONC 31.7 g/dL (33.0-36.5); MEAN CORPUSCULAR VOLUME 93.9 FL (78-98); MEAN PLATELET VOLUME 9.7 FL (7.4-10.4); MONOCYTES # (AUTO) 1.8 X10'3 (0-0.9); MONOCYTES % (AUTO) 4.9 % (2-12); NEUTROPHILS # (AUTO) 31.2 X10'3 (1.8-7.7); NEUTROPHILS % (AUTO) 87.3 % (42-75); PLATELET COUNT 247 X10'3 (140-440); RED BLOOD COUNT 3.55 X10'6 (4.20-5.60); RED CELL DISTRIBUTION WIDTH 17.6 % (11.5-14.5)
[2019-04-18 01:58] LABS: PARTIAL THROMBOPLASTIN TIME 32 SECONDS (22-32)
[2019-04-18 02:02] LABS: ALBUMIN 2.6 G/DL (3.4-5.0); ALKALINE PHOSPHATASE 218 IU/L (46-116); ANION GAP 15 (8-16); BLOOD UREA NITROGEN 32 MG/DL (7-18); BUN/CREATININE RATIO 15.5 (6.6-38.0); CALCIUM 9.5 MG/DL (8.5-10.1); CHLORIDE 102 MMOL/L (99-107); CREATININE 2.07 MG/DL (0.40-0.90); GLUCOSE 230 MG/DL (70-104); MAGNESIUM 1.8 MG/DL (1.5-2.4); POTASSIUM 4.3 MMOL/L (3.5-5.1); SODIUM 140 MMOL/L (135-145); TOTAL CARBON DIOXIDE 22.9 MMOL/L (24-32); eGFR 24 ML/MIN
[2019-04-18 02:09] LABS: WHITE BLOOD COUNT 35.7 X10'3 (4.5-11.0)
[2019-04-18] MEDS: insulin Lispro (HumaLOG) vial - multi-dose SQ SCH ×4 (02:13→21:03)
[2019-04-18] MEDS: NORepinephrine 8mg/ 250ml NS 250 ML IV SCH ×3 (02:17→21:18)
[2019-04-18 02:45] LABS: ALANINE AMINOTRANSFERASE 3151 U/L (12-78); ALBUMIN/GLOBULIN RATIO 0.9 (1.1-1.5); PHOSPHORUS 3.9 MG/DL (2.3-4.5); TOTAL PROTEIN 5.5 G/DL (6.4-8.2)
[2019-04-18 03:01] LABS: ASPARTATE AMINO TRANSFERASE 3973 U/L (10-37)
[2019-04-18] MEDS: calcium chloride inj. 1,000 MG in normal saline 100ml IV soln 100 ML IV PRN ×2 (03:10→10:38)
[2019-04-18] MEDS: NORMAL SALINE IV PRN ×2 (03:11→10:38)
[2019-04-18] MEDS: CALCIUM CHLORIDE IV PRN ×2 (03:11→10:38)
[2019-04-18 03:52] LABS: NUCLEATED RED BLOOD CELLS 2 /100WBC (0-0); TOTAL CELLS COUNTED 100
[2019-04-18 03:53] LABS: ANISOCYTOSIS 1+; LARGE PLATELETS FEW; PLATELET ESTIMATE NORMAL; POLYCHROMASIA FEW
[2019-04-18] MEDS ORDERED: phytonadione inj. 5 MG in normal saline 100ml IV soln 99.5 ML IV ONE (04:35)
[2019-04-18] MEDS: Duosol 4k/NO Calcium 5,000 ML HE SCH ×3 (04:46→04:48)
[2019-04-18] MEDS: FENTANYL-0.9 % NACL/PF 100 ML IV PRN (04:46)
[2019-04-18 05:24] LABS: BASOPHILS % (AUTO) 0.1 % (0-1); EOSINOPHILS % (AUTO) 0.1 % (0-6); HEMATOCRIT 31.6 % (35.0-45.0); HEMOGLOBIN 10.3 g/dl (12.0-16.0); LYMPHOCYTES # (AUTO) 1.8 X10'3 (1.1-4.8); MEAN CORPUSCULAR HEMOGLOBIN 29.9 PG (27.0-31.0); MEAN CORPUSCULAR HGB CONC 32.5 g/dL (33.0-36.5); MEAN PLATELET VOLUME 9.3 FL (7.4-10.4); MONOCYTES # (AUTO) 0.7 X10'3 (0-0.9); MONOCYTES % (AUTO) 2.7 % (2-12); NEUTROPHILS # (AUTO) 22.9 X10'3 (1.8-7.7); NEUTROPHILS % (AUTO) 90.1 % (42-75); PLATELET COUNT 192 X10'3 (140-440); RED BLOOD COUNT 3.43 X10'6 (4.20-5.60); RED CELL DISTRIBUTION WIDTH 17.5 % (11.5-14.5)
[2019-04-18 05:37] LABS: ALBUMIN 2.5 G/DL (3.4-5.0); ANION GAP 12 (8-16); BLOOD UREA NITROGEN 28 MG/DL (7-18); BUN/CREATININE RATIO 14.6 (6.6-38.0); CALCIUM 10.6 MG/DL (8.5-10.1); CHLORIDE 104 MMOL/L (99-107); CREATININE 1.92 MG/DL (0.40-0.90); GLUCOSE 236 MG/DL (70-104); MAGNESIUM 1.8 MG/DL (1.5-2.4); POTASSIUM 4.2 MMOL/L (3.5-5.1); SODIUM 141 MMOL/L (135-145); eGFR 26 ML/MIN
[2019-04-18 05:40] LABS: WHITE BLOOD COUNT 25.5 X10'3 (4.5-11.0)
[2019-04-18 05:45] LABS: PHOSPHORUS 3.3 MG/DL (2.3-4.5)
[2019-04-18 06:01] LABS: OXYGEN SATURATION (MIXED VEN) 61.2 % (60-80); PO2 MIXED VENOUS (TEMP COR) 34.9 mmHg (35-46)
[2019-04-18 06:05] LABS: ABG BASE EXCESS -0.2 mmol/L (-2.0-3.0); ABG HCO3 23.8 mmol/L (22.0-26.0); ABG PCO2 (T) 36.7 mmHg (35.0-45.0); ABG PO2 (T) 76.1 mmHg (83-108); ALLEN'S TEST POSITIVE; FCOHb 0.4 % (0.5-1.5); FMetHb 0.3 % (0.3-1.12); FO2Hb 93.3 % (94-100); PEEP 5 cm H2O; RESPIRATORY RATE 14 b/min; TIDAL VOLUME 400 mL; TOTAL HEMOGLOBIN 11.8 G/dl (12.0-16.0)
--- NOTE | 2019-04-18 06:28 | NUR ---
Problems reprioritized. Patient report given, questions answered & plan of care reviewed with Janes ESPINOZA.
[2019-04-18] MEDS: venlafaxine XR 75mg capsule (Q24H) PO SCH (08:00)
[2019-04-18] MEDS: K, MAG and/or Phos replacement - Verify level? MC SCH (08:00)
[2019-04-18] MEDS: zinc sulfate 220mg capsule PO SCH (08:00)
[2019-04-18] MEDS: docusate sod 100mg capsule PO SCH (08:00)
[2019-04-18 08:23] LABS: BASOPHILS # (AUTO) 0.1 X10'3 (0-0.2); BASOPHILS % (AUTO) 0.3 % (0-1); EOSINOPHILS % (AUTO) 0 % (0-6); HEMATOCRIT 30.1 % (35.0-45.0); HEMOGLOBIN 9.9 g/dl (12.0-16.0); LYMPHOCYTES # (AUTO) 1.6 X10'3 (1.1-4.8); LYMPHOCYTES % (AUTO) 6.4 % (21-51); MEAN CORPUSCULAR HEMOGLOBIN 30.4 PG (27.0-31.0); MEAN CORPUSCULAR HGB CONC 32.8 g/dL (33.0-36.5); MEAN CORPUSCULAR VOLUME 92.9 FL (78-98); MEAN PLATELET VOLUME 9.1 FL (7.4-10.4); MONOCYTES # (AUTO) 0.9 X10'3 (0-0.9); MONOCYTES % (AUTO) 3.5 % (2-12); NEUTROPHILS # (AUTO) 22.8 X10'3 (1.8-7.7); NEUTROPHILS % (AUTO) 89.8 % (42-75); PLATELET COUNT 189 X10'3 (140-440); RED BLOOD COUNT 3.24 X10'6 (4.20-5.60); RED CELL DISTRIBUTION WIDTH 17.8 % (11.5-14.5)
[2019-04-18 08:27] LABS: WHITE BLOOD COUNT 25.4 X10'3 (4.5-11.0)
[2019-04-18] MEDS: linezolid 600mg/300ml PREMIX 300 ML IV SCH ×2 (08:32→20:57)
[2019-04-18 08:46] LABS: ALBUMIN 2.5 G/DL (3.4-5.0); ANION GAP 10 (8-16); BLOOD UREA NITROGEN 24 MG/DL (7-18); BUN/CREATININE RATIO 13.6 (6.6-38.0); CALCIUM 9.6 MG/DL (8.5-10.1); CHLORIDE 105 MMOL/L (99-107); CREATININE 1.76 MG/DL (0.40-0.90); GLUCOSE 213 MG/DL (70-104); MAGNESIUM 1.8 MG/DL (1.5-2.4); POTASSIUM 4.2 MMOL/L (3.5-5.1); SODIUM 142 MMOL/L (135-145); TOTAL CARBON DIOXIDE 27.5 MMOL/L (24-32); eGFR 29 ML/MIN
[2019-04-18 08:47] LABS: PHOSPHORUS 2.8 MG/DL (2.3-4.5)
[2019-04-18] MEDS: clopidogrel 75mg tablet PO SCH (09:39)
[2019-04-18] MEDS: lactobacillus rhamnosus 10,000 MMU CELLS/CAPSULE PO SCH ×2 (09:39→20:55)
[2019-04-18] MEDS: aspirin 81mg tab.chew PO SCH (09:39)
[2019-04-18] MEDS: fenofibrate 145mg tablet PO SCH (09:39)
[2019-04-18] MEDS: pregabalin 75mg capsule PO SCH (09:39)
[2019-04-18] MEDS: pantoprazole 40mg Tablet.DR PO SCH (09:40)
[2019-04-18] MEDS: levoTHYROXINE 25mcg tablet PO SCH (09:40)
[2019-04-18] MEDS: methylPREDNISolone sod succ 125mg/2ml vial IV SCH (09:49)
[2019-04-18] MEDS: piperacillin/tazo 3.375gm/50ml 50 ML IV SCH ×2 (10:35→15:26)
[2019-04-18] MEDS ORDERED: POTASSIUM BICARB 20meq eff tab 20 MEQ TABLET.EFF PO PRN ×2 (10:39→10:40)
[2019-04-18] MEDS ORDERED: acetaminophen 325mg/10.15ml oral unit dose solution PO PRN ×2 (10:40)
[2019-04-18] MEDS: Duosol 4K/3 Ca (w/calcium) 5,000 ML HE SCH ×6 (10:51→21:28)
--- NOTE | 2019-04-18 11:20 | NUR ---
Reassessment: Pt remains intubated. No TF consult at this time however pt would benefit from nutrition support to meet nutrient needs if expected prolonged intubation. LBM 04/16. Will continue to follow closely. Follow up: Patient is intubated and sedated.. Was pending ICD placement. Per Chart Reader note patient was rapidly deteriorating with shock liver or amiodorone; per the note patient will have HD then CVVH. Still NPO at this time. May benefit from tube feeding to meet needs on vent if prolonged intubation. Kelvin count consult: Pt currently NPO for OR to have femoral dialysis cath per MD note. Pending dialysis after catheter placement. Prior to NPO, pt had poor PO intake 25% avg meals not meeting nutrient needs. Per MD, pt is pre-renal. Per critical care rounds, protein/calorie count to start when diet is advanced to last for 5 days. UUN is available to calculate nitrogen balance after calorie count. LBM 04/15. Will continue to monitor. Recommendations: 1. IF tube feeding while intubated recommend using Vital High Protein at 50 ml/hr 1200 ml volume, 1200 kcal, 105 g protein, and 1008 ml water. 2. IF tube feeding: daily weights, prealbumin q Saturday and , water flush per MD 3. bowel care as needed 4. weight per rx Addendum: 04/18/19 at [address] Amended: Links added.
[2019-04-18 13:38] LABS: BASOPHILS # (AUTO) 0.1 X10'3 (0-0.2); BASOPHILS % (AUTO) 0.2 % (0-1); EOSINOPHILS % (AUTO) 0 % (0-6); HEMATOCRIT 31.3 % (35.0-45.0); HEMOGLOBIN 10.1 g/dl (12.0-16.0); LYMPHOCYTES # (AUTO) 2.2 X10'3 (1.1-4.8); LYMPHOCYTES % (AUTO) 7.5 % (21-51); MEAN CORPUSCULAR HEMOGLOBIN 29.9 PG (27.0-31.0); MEAN CORPUSCULAR HGB CONC 32.1 g/dL (33.0-36.5); MEAN CORPUSCULAR VOLUME 93.3 FL (78-98); MEAN PLATELET VOLUME 9.8 FL (7.4-10.4); MONOCYTES # (AUTO) 1.1 X10'3 (0-0.9); MONOCYTES % (AUTO) 3.9 % (2-12); NEUTROPHILS # (AUTO) 25.6 X10'3 (1.8-7.7); NEUTROPHILS % (AUTO) 88.4 % (42-75); PLATELET COUNT 219 X10'3 (140-440); RED BLOOD COUNT 3.36 X10'6 (4.20-5.60); RED CELL DISTRIBUTION WIDTH 18.3 % (11.5-14.5)
[2019-04-18 13:47] LABS: ALBUMIN 2.9 G/DL (3.4-5.0); ANION GAP 11 (8-16); BLOOD UREA NITROGEN 22 MG/DL (7-18); BUN/CREATININE RATIO 12.8 (6.6-38.0); CALCIUM 11.1 MG/DL (8.5-10.1); CHLORIDE 103 MMOL/L (99-107); CREATININE 1.72 MG/DL (0.40-0.90); GLUCOSE 223 MG/DL (70-104); MAGNESIUM 1.8 MG/DL (1.5-2.4); POTASSIUM 4.2 MMOL/L (3.5-5.1); SODIUM 141 MMOL/L (135-145); TOTAL CARBON DIOXIDE 26.8 MMOL/L (24-32); eGFR 30 ML/MIN
[2019-04-18 13:55] LABS: PHOSPHORUS 2.9 MG/DL (2.3-4.5)
[2019-04-18 14:25] LABS: OXYGEN SATURATION (MIXED VEN) 72.9 % (60-80); PO2 MIXED VENOUS (TEMP COR) 37.3 mmHg (35-46)
[2019-04-18] MEDS: mineral oil/petrolatum ophthal oint EACHEYE SCH ×2 (14:53→20:55)
[2019-04-18] MEDS: hydrocortisone sod succ/PF 100mg/2ml inj. IV SCH (15:26)
[2019-04-18 16:16] LABS: BASOPHILS % (AUTO) 0.2 % (0-1); EOSINOPHILS % (AUTO) 0 % (0-6); HEMATOCRIT 30.5 % (35.0-45.0); LYMPHOCYTES # (AUTO) 2.3 X10'3 (1.1-4.8); LYMPHOCYTES % (AUTO) 8.7 % (21-51); MEAN CORPUSCULAR HEMOGLOBIN 30.4 PG (27.0-31.0); MEAN CORPUSCULAR HGB CONC 32.8 g/dL (33.0-36.5); MEAN CORPUSCULAR VOLUME 92.8 FL (78-98); MEAN PLATELET VOLUME 9.4 FL (7.4-10.4); MONOCYTES % (AUTO) 3.9 % (2-12); NEUTROPHILS # (AUTO) 23.4 X10'3 (1.8-7.7); NEUTROPHILS % (AUTO) 87.2 % (42-75); PLATELET COUNT 220 X10'3 (140-440); RED BLOOD COUNT 3.29 X10'6 (4.20-5.60); RED CELL DISTRIBUTION WIDTH 18.1 % (11.5-14.5)
[2019-04-18 16:21] LABS: WHITE BLOOD COUNT 26.8 X10'3 (4.5-11.0)
[2019-04-18 16:31] LABS: ALBUMIN 2.5 G/DL (3.4-5.0); ANION GAP 7 (8-16); BLOOD UREA NITROGEN 22 MG/DL (7-18); BUN/CREATININE RATIO 13.1 (6.6-38.0); CALCIUM 9.8 MG/DL (8.5-10.1); CHLORIDE 106 MMOL/L (99-107); CREATININE 1.68 MG/DL (0.40-0.90); GLUCOSE 170 MG/DL (70-104); MAGNESIUM 1.8 MG/DL (1.5-2.4); POTASSIUM 4.2 MMOL/L (3.5-5.1); SODIUM 142 MMOL/L (135-145); TOTAL CARBON DIOXIDE 28.7 MMOL/L (24-32); eGFR 31 ML/MIN
[2019-04-18 16:43] LABS: PHOSPHORUS 3.1 MG/DL (2.3-4.5)
--- NOTE | 2019-04-18 18:30 | NUR ---
Patient in room CICU 2009. I have received report from Janes ESPINOZA and had the opportunity to ask questions and assume patient care.
[2019-04-18] MEDS ORDERED: pantoprazole 40 MG vial IV ONE (20:20)
[2019-04-18] MEDS: polyethylene glycol 3350 17gm powd pack PO SCH (20:55)
[2019-04-18] MEDS: docusate sodium 100mg/10ml UD cup PO SCH (20:55)
[2019-04-18] MEDS: insulin glargine (Lantus) pen - multi-dose SQ SCH (21:03)
[2019-04-18 22:35] LABS: BASOPHILS # (AUTO) 0.2 X10'3 (0-0.2); BASOPHILS % (AUTO) 0.7 % (0-1); EOSINOPHILS % (AUTO) 0 % (0-6); HEMATOCRIT 30.1 % (35.0-45.0); HEMOGLOBIN 9.7 g/dl (12.0-16.0); LYMPHOCYTES # (AUTO) 1.7 X10'3 (1.1-4.8); LYMPHOCYTES % (AUTO) 6.7 % (21-51); MEAN CORPUSCULAR HEMOGLOBIN 30.1 PG (27.0-31.0); MEAN CORPUSCULAR HGB CONC 32.3 g/dL (33.0-36.5); MEAN CORPUSCULAR VOLUME 93.3 FL (78-98); MEAN PLATELET VOLUME 9.1 FL (7.4-10.4); MONOCYTES # (AUTO) 1.3 X10'3 (0-0.9); MONOCYTES % (AUTO) 5.1 % (2-12); NEUTROPHILS # (AUTO) 22.5 X10'3 (1.8-7.7); NEUTROPHILS % (AUTO) 87.5 % (42-75); PLATELET COUNT 193 X10'3 (140-440); RED BLOOD COUNT 3.22 X10'6 (4.20-5.60); RED CELL DISTRIBUTION WIDTH 17.8 % (11.5-14.5)
[2019-04-18 22:44] LABS: ALBUMIN 2.4 G/DL (3.4-5.0); ANION GAP 6 (8-16); BLOOD UREA NITROGEN 22 MG/DL (7-18); BUN/CREATININE RATIO 12.4 (6.6-38.0); CHLORIDE 105 MMOL/L (99-107); CREATININE 1.78 MG/DL (0.40-0.90); GLUCOSE 171 MG/DL (70-104); MAGNESIUM 1.7 MG/DL (1.5-2.4); POTASSIUM 4.5 MMOL/L (3.5-5.1); SODIUM 141 MMOL/L (135-145); TOTAL CARBON DIOXIDE 29.9 MMOL/L (24-32); eGFR 29 ML/MIN
[2019-04-18 22:45] LABS: PHOSPHORUS 3.3 MG/DL (2.3-4.5); WHITE BLOOD COUNT 25.7 X10'3 (4.5-11.0)
[2019-04-18 23:16] LABS: ANISOCYTOSIS 1+; LARGE PLATELETS FEW; NUCLEATED RED BLOOD CELLS 4 /100WBC (0-0); PLATELET ESTIMATE NORMAL; POLYCHROMASIA FEW; TOTAL CELLS COUNTED 100
[2019-04-19] VITALS (26 sets, daily range): BP systolic 78–126; BP diastolic 40–85
[2019-04-19] MEDS: piperacillin/tazo 3.375gm/50ml 50 ML IV SCH ×4 (00:08→23:58)
[2019-04-19] MEDS: hydrocortisone sod succ/PF 100mg/2ml inj. IV SCH ×4 (00:08→23:58)
--- NOTE | 2019-04-19 00:25 | NUR ---
CVVH down. Survey Analyst RN called to restart. Pt has jason blood with deep suction.
[2019-04-19] MEDS: mineral oil/petrolatum ophthal oint EACHEYE SCH ×4 (01:54→19:53)
[2019-04-19] MEDS: insulin Lispro (HumaLOG) vial - multi-dose SQ SCH (01:56)
[2019-04-19 02:26] LABS: PARTIAL THROMBOPLASTIN TIME 31 SECONDS (22-32)
[2019-04-19 02:33] LABS: ALBUMIN 2.4 G/DL (3.4-5.0); ALKALINE PHOSPHATASE 215 IU/L (46-116); ANION GAP 4 (8-16); BILIRUBIN,TOTAL 5.8 MG/DL (0.1-1.0); BLOOD UREA NITROGEN 24 MG/DL (7-18); BUN/CREATININE RATIO 12.6 (6.6-38.0); CALCIUM 9.1 MG/DL (8.5-10.1); CHLORIDE 105 MMOL/L (99-107); GLUCOSE 177 MG/DL (70-104); MAGNESIUM 3.3 MG/DL (1.5-2.4); POTASSIUM 4.5 MMOL/L (3.5-5.1); SODIUM 139 MMOL/L (135-145); TOTAL CARBON DIOXIDE 29.8 MMOL/L (24-32); eGFR 27 ML/MIN
--- NOTE | 2019-04-19 02:33 | NUR ---
CV[facility] restarted 0230. Blood flow set at previous setting of 350.
[2019-04-19 02:34] LABS: ALANINE AMINOTRANSFERASE 1852 U/L (12-78); ALBUMIN/GLOBULIN RATIO 0.8 (1.1-1.5); ASPARTATE AMINO TRANSFERASE 1273 U/L (10-37); BASOPHILS % (AUTO) 0.1 % (0-1); EOSINOPHILS % (AUTO) 0 % (0-6); LYMPHOCYTES # (AUTO) 1.7 X10'3 (1.1-4.8); LYMPHOCYTES % (AUTO) 5.5 % (21-51); MEAN CORPUSCULAR HEMOGLOBIN 30.1 PG (27.0-31.0); MEAN CORPUSCULAR HGB CONC 32.3 g/dL (33.0-36.5); MEAN CORPUSCULAR VOLUME 93.3 FL (78-98); MEAN PLATELET VOLUME 9.7 FL (7.4-10.4); MONOCYTES # (AUTO) 1.4 X10'3 (0-0.9); MONOCYTES % (AUTO) 4.7 % (2-12); NEUTROPHILS # (AUTO) 27.1 X10'3 (1.8-7.7); NEUTROPHILS % (AUTO) 89.7 % (42-75); PHOSPHORUS 3.6 MG/DL (2.3-4.5); PLATELET COUNT 212 X10'3 (140-440); RED BLOOD COUNT 3.32 X10'6 (4.20-5.60); RED CELL DISTRIBUTION WIDTH 17.8 % (11.5-14.5); TOTAL PROTEIN 5.3 G/DL (6.4-8.2)
[2019-04-19 02:44] LABS: WHITE BLOOD COUNT 30.2 X10'3 (4.5-11.0)
[2019-04-19 03:16] LABS: ABG BASE EXCESS 0.9 mmol/L (-2.0-3.0); ABG HCO3 23.3 mmol/L (22.0-26.0); ABG OXYGEN SATURATION 90.2 % (95-98); ABG PCO2 (T) 30.5 mmHg (35.0-45.0); ABG PH (T) 7.503 (7.350-7.450); ABG PO2 (T) 57.2 mmHg (83-108); ALLEN'S TEST POSITIVE; FCOHb 0.2 % (0.5-1.5); FMetHb 0.3 % (0.3-1.12); FO2Hb 89.7 % (94-100); PATIENT TEMPERATURE 37.5; PEEP 5 cm H2O; TOTAL HEMOGLOBIN 10.7 G/dl (12.0-16.0)
--- NOTE | 2019-04-19 06:34 | NUR ---
Problems reprioritized. Patient report given, questions answered & plan of care reviewed with Jay ESPINOZA.
--- NOTE | 2019-04-19 06:37 | NUR ---
Patient in room CICU 2009. I have received report from OLGA Olivares and had the opportunity to ask questions and assume patient care.
[2019-04-19] MEDS: linezolid 600mg/300ml PREMIX 300 ML IV SCH ×2 (07:22→19:54)
[2019-04-19] MEDS: pregabalin 75mg capsule PO SCH (07:27)
[2019-04-19] MEDS: zinc sulfate 220mg capsule PO SCH (07:27)
[2019-04-19] MEDS: lactobacillus rhamnosus 10,000 MMU CELLS/CAPSULE PO SCH ×2 (07:27→19:53)
[2019-04-19] MEDS: docusate sodium 100mg/10ml UD cup PO SCH ×2 (07:27→19:53)
[2019-04-19] MEDS: pantoprazole 40 MG vial IV SCH ×2 (07:27→19:53)
[2019-04-19] MEDS: clopidogrel 75mg tablet PO SCH (07:27)
[2019-04-19] MEDS: fenofibrate 145mg tablet PO SCH (07:27)
[2019-04-19] MEDS: aspirin 81mg tab.chew PO SCH (07:27)
[2019-04-19] MEDS: levoTHYROXINE 25mcg tablet PO SCH (07:27)
[2019-04-19] MEDS: venlafaxine XR 75mg capsule (Q24H) PO SCH (08:00)
--- NOTE | 2019-04-19 08:00 | NUR ---
Pt is intubated and not receiving nutrition. Humulin R not ordered or available. Unable to provide insulin coverage for pt's blood glucose at this time. Humulin R requested from Pharmacy.
[2019-04-19 08:05] LABS: BASOPHILS % (AUTO) 0.1 % (0-1); EOSINOPHILS % (AUTO) 0 % (0-6); HEMATOCRIT 32.1 % (35.0-45.0); HEMOGLOBIN 10.3 g/dl (12.0-16.0); LYMPHOCYTES # (AUTO) 1.8 X10'3 (1.1-4.8); LYMPHOCYTES % (AUTO) 6.3 % (21-51); MEAN CORPUSCULAR HEMOGLOBIN 29.6 PG (27.0-31.0); MEAN CORPUSCULAR VOLUME 92.7 FL (78-98); MEAN PLATELET VOLUME 9.6 FL (7.4-10.4); MONOCYTES # (AUTO) 1.3 X10'3 (0-0.9); MONOCYTES % (AUTO) 4.4 % (2-12); NEUTROPHILS # (AUTO) 26.3 X10'3 (1.8-7.7); NEUTROPHILS % (AUTO) 89.2 % (42-75); PLATELET COUNT 227 X10'3 (140-440); RED BLOOD COUNT 3.46 X10'6 (4.20-5.60); RED CELL DISTRIBUTION WIDTH 17.9 % (11.5-14.5)
[2019-04-19 08:10] LABS: WHITE BLOOD COUNT 29.4 X10'3 (4.5-11.0)
[2019-04-19 08:12] LABS: ALBUMIN 2.2 G/DL (3.4-5.0); ANION GAP 5 (8-16); BLOOD UREA NITROGEN 24 MG/DL (7-18); CALCIUM 8.4 MG/DL (8.5-10.1); CHLORIDE 105 MMOL/L (99-107); CREATININE 1.84 MG/DL (0.40-0.90); GLUCOSE 210 MG/DL (70-104); MAGNESIUM 2.6 MG/DL (1.5-2.4); SODIUM 140 MMOL/L (135-145); TOTAL CARBON DIOXIDE 30.5 MMOL/L (24-32); eGFR 28 ML/MIN
[2019-04-19 08:13] LABS: PHOSPHORUS 3.3 MG/DL (2.3-4.5); POTASSIUM 4.2 MMOL/L (3.5-5.1)
[2019-04-19] MEDS: K, MAG and/or Phos replacement - Verify level? MC SCH (08:36)
[2019-04-19 09:02] LABS: ANISOCYTOSIS 1+; NUCLEATED RED BLOOD CELLS 5 /100WBC (0-0); PLATELET ESTIMATE NORMAL; POLYCHROMASIA 2+; TOTAL CELLS COUNTED 100; TOXIC GRANULATION 2+
[2019-04-19] MEDS: Duosol 4K/3 Ca (w/calcium) 5,000 ML HE SCH ×7 (09:11→23:37)
[2019-04-19] MEDS ORDERED: normal saline 1000ml 1,000 ML IV ONE ×2 (09:55→10:55)
--- NOTE | 2019-04-19 09:57 | NUR ---
Dr. Alvarado rounded. He spoke with Pt's daughter on phone. Received DNR order, Received order to stop pulling fluid and adjust UF rate to maintain euvolemia. Received order to bolus 2 L NS. Trickle tube feed ordered. Nepro 20 mL/hr
[2019-04-19] MEDS: NORepinephrine 8mg/ 250ml NS 250 ML IV SCH ×2 (10:24→21:42)
--- NOTE | 2019-04-19 11:46 | NUR ---
TF consult: Pt remains intubated and sedated. Per MD note pt now with acute hepatic necrosis, s/p 3 hr of HD, now on CVVH. Per production lead, TF with Nepro at 20ml/hr. If to continue using Nepro, unable to meet protein needs without overfeeding using calorie dense formula. EN recs below. LBM 04/16. Will continue to monitor. Recommendations: 1. Per MD, continuous OGTF using Nepro at 20ml/hr. 2. IF advancing TF using nepro, advance by 20ml q 8 hrs as tolerated to goal of 40ml to provide total volume of 960ml and 1728kcal, 78g protein, and 701 ml free water; using this formula cannot meet protein needs on vent and CVVH 3. IF EN to advance consider Vital high protein at goal of 75ml/hr providing total volume of 1800ml, 1800 charlie, 158 g protein and 1512 ml free water. 4. daily weights, prealbumin q Saturday and 5. water flush per MD on CVVH 6. bowel care as needed Addendum: 04/19/19 at 1146 by Wing Carson ROTHMAN Amended: Links added. Addendum: 04/19/19 at [address] Marisela Bustos
--- NOTE | 2019-04-19 12:00 | NUR ---
Warming blanket placed on pt.
--- NOTE | 2019-04-19 12:16 | NUR ---
Dr. Alvarado at bedside to speak with pt's daughter Nelda. 2 L NS has been infused. Levophed titrated down to 0.1mcg/kg/min.
--- NOTE | 2019-04-19 13:00 | NUR ---
Pt hypotensive with BP of 78/40 (65), HR 92 bpm, rhythm is ventricular bigeminy. Levophed titrated back up to 0.15 mcg/kg/hr.
--- NOTE | 2019-04-19 13:23 | NUR ---
Pt has returned to sinus rhythm with frequent PVCs, HR 95, BP 109/71 (80). Pt's Daughter and Sister are at bedside.
[2019-04-19] MEDS: insulin regular, human U-100 3ml vial - multi-dose SQ SCH ×2 (13:45→19:56)
[2019-04-19 14:10] LABS: BASOPHILS % (AUTO) 0 % (0-1); EOSINOPHILS % (AUTO) 0 % (0-6); HEMATOCRIT 31.9 % (35.0-45.0); HEMOGLOBIN 10.1 g/dl (12.0-16.0); LYMPHOCYTES # (AUTO) 1.5 X10'3 (1.1-4.8); LYMPHOCYTES % (AUTO) 6.2 % (21-51); MEAN CORPUSCULAR HEMOGLOBIN 30.1 PG (27.0-31.0); MEAN CORPUSCULAR HGB CONC 31.8 g/dL (33.0-36.5); MEAN CORPUSCULAR VOLUME 94.7 FL (78-98); MEAN PLATELET VOLUME 9.5 FL (7.4-10.4); MONOCYTES # (AUTO) 0.9 X10'3 (0-0.9); MONOCYTES % (AUTO) 3.9 % (2-12); NEUTROPHILS # (AUTO) 21.7 X10'3 (1.8-7.7); NEUTROPHILS % (AUTO) 89.9 % (42-75); PLATELET COUNT 195 X10'3 (140-440); RED BLOOD COUNT 3.37 X10'6 (4.20-5.60); RED CELL DISTRIBUTION WIDTH 18.9 % (11.5-14.5); WHITE BLOOD COUNT 24.2 X10'3 (4.5-11.0)
[2019-04-19 14:26] LABS: ALBUMIN 2.2 G/DL (3.4-5.0); ALBUMIN/GLOBULIN RATIO 0.8 (1.1-1.5); ALKALINE PHOSPHATASE 212 IU/L (46-116); ANION GAP 5 (8-16); ASPARTATE AMINO TRANSFERASE 785 U/L (10-37); BILIRUBIN,DIRECT 5.7 MG/DL (0-0.3); BILIRUBIN,TOTAL 6.6 MG/DL (0.1-1.0); BLOOD UREA NITROGEN 24 MG/DL (7-18); BUN/CREATININE RATIO 14.6 (6.6-38.0); CALCIUM 8.5 MG/DL (8.5-10.1); CHLORIDE 106 MMOL/L (99-107); CREATININE 1.64 MG/DL (0.40-0.90); GLUCOSE 185 MG/DL (70-104); MAGNESIUM 2.3 MG/DL (1.5-2.4); PHOSPHORUS 3.7 MG/DL (2.3-4.5); POTASSIUM 4.6 MMOL/L (3.5-5.1); SODIUM 141 MMOL/L (135-145); eGFR 32 ML/MIN
--- NOTE | 2019-04-19 14:26 | NUR ---
Warming blanket turned off.
[2019-04-19 14:27] LABS: ALANINE AMINOTRANSFERASE 1529 U/L (12-78)
[2019-04-19 14:28] LABS: PARTIAL THROMBOPLASTIN TIME 33 SECONDS (22-32)
[2019-04-19 14:29] LABS: D-DIMER > 35.20 MG/L FEU (0-0.50)
[2019-04-19 14:30] LABS: PLATELET COUNT 195 X10'3 (140-440)
--- NOTE | 2019-04-19 15:24 | NUR ---
Levophed gtt titrated down to 0125mcg/kg/min. Addendum: 04/19/19 at 1526 by Justen Aggarwal RN 0.125 mcg/kg/min
--- NOTE | 2019-04-19 16:19 | NUR ---
Pt back in ventricular bigeminy, Levophed titrated back up to 0.15 mcg/kg/min.
--- NOTE | 2019-04-19 16:38 | NUR ---
Pt had sustained V-Tach, > 1min. Called Dr. Alvarado and reported event. Pt had adverse reaction to amiodarone previously and is DNR code status. Received order to contact almond grinder Catalogue Compiler for recommendation. Page placed to Dr. Davison through his office line.
--- NOTE | 2019-04-19 16:43 | NUR ---
Pt now in atrial fibrillation.
--- NOTE | 2019-04-19 16:47 | NUR ---
Pt converted back to sinus rhythm. 94 bpm.
[2019-04-19] MEDS ORDERED: LIDOcaine 2% (20 mg/ml) 5ml cardiac syringe IV STA (16:59)
--- NOTE | 2019-04-19 17:00 | NUR ---
Spoke with Dr. Davison on telephone. 100 mg Lidocaine IVP ordered.
--- NOTE | 2019-04-19 18:15 | NUR ---
Problems reprioritized. Patient report given, questions answered & plan of care reviewed with OLGA Olivares.
--- NOTE | 2019-04-19 18:17 | NUR ---
Patient in [facility]. I have received report from Jay ESPINOZA and had the opportunity to ask questions and assume patient care. Addendum: 04/19/19 at 2222 by Elise Braun RN Daughter at bedside. Pt opens eyes, LAWSON and bites down on ETT with care but does not follow commands.
[2019-04-19] MEDS ORDERED: heparin 1,000 units/ml 10ml inj HE ONE ×2 (18:20)
[2019-04-19] MEDS: polyethylene glycol 3350 17gm powd pack PO SCH (19:53)
[2019-04-19] MEDS: insulin glargine (Lantus) pen - multi-dose SQ SCH (19:57)
[2019-04-20] VITALS (24 sets, daily range): BP systolic 79–114; BP diastolic 37–67
[2019-04-20] MEDS: mineral oil/petrolatum ophthal oint EACHEYE SCH ×2 (02:05→07:24)
[2019-04-20] MEDS: insulin regular, human U-100 3ml vial - multi-dose SQ SCH ×2 (02:06→07:54)
[2019-04-20] MEDS: Duosol 4K/3 Ca (w/calcium) 5,000 ML HE SCH ×5 (02:07→12:07)
[2019-04-20 03:06] LABS: BASOPHILS % (AUTO) 0 % (0-1); EOSINOPHILS % (AUTO) 0 % (0-6); HEMATOCRIT 29.8 % (35.0-45.0); HEMOGLOBIN 9.5 g/dl (12.0-16.0); LYMPHOCYTES # (AUTO) 0.8 X10'3 (1.1-4.8); LYMPHOCYTES % (AUTO) 4.1 % (21-51); MEAN CORPUSCULAR HEMOGLOBIN 30.1 PG (27.0-31.0); MEAN CORPUSCULAR HGB CONC 31.9 g/dL (33.0-36.5); MEAN CORPUSCULAR VOLUME 94.3 FL (78-98); MEAN PLATELET VOLUME 9.5 FL (7.4-10.4); MONOCYTES % (AUTO) 5.3 % (2-12); NEUTROPHILS # (AUTO) 17.8 X10'3 (1.8-7.7); NEUTROPHILS % (AUTO) 90.6 % (42-75); PLATELET COUNT 154 X10'3 (140-440); RED BLOOD COUNT 3.16 X10'6 (4.20-5.60); RED CELL DISTRIBUTION WIDTH 19.1 % (11.5-14.5); WHITE BLOOD COUNT 19.7 X10'3 (4.5-11.0)
[2019-04-20 03:14] LABS: ALBUMIN 2.1 G/DL (3.4-5.0); ALKALINE PHOSPHATASE 195 IU/L (46-116); ANION GAP 9 (8-16); ASPARTATE AMINO TRANSFERASE 511 U/L (10-37); BILIRUBIN,TOTAL 7.2 MG/DL (0.1-1.0); BLOOD UREA NITROGEN 39 MG/DL (7-18); BUN/CREATININE RATIO 16.5 (6.6-38.0); CALCIUM 8.8 MG/DL (8.5-10.1); CHLORIDE 105 MMOL/L (99-107); CREATININE 2.37 MG/DL (0.40-0.90); GLUCOSE 321 MG/DL (70-104); MAGNESIUM 2.4 MG/DL (1.5-2.4); PREALBUMIN 8.6 MG/DL (19-36); SODIUM 138 MMOL/L (135-145); TOTAL CARBON DIOXIDE 23.9 MMOL/L (24-32); eGFR 21 ML/MIN
[2019-04-20 03:23] LABS: POTASSIUM 4.8 MMOL/L (3.5-5.1)
[2019-04-20 03:24] LABS: ALANINE AMINOTRANSFERASE 1210 U/L (12-78); ALBUMIN/GLOBULIN RATIO 0.8 (1.1-1.5); TOTAL PROTEIN 4.7 G/DL (6.4-8.2)
[2019-04-20 03:47] LABS: PARTIAL THROMBOPLASTIN TIME 34 SECONDS (22-32)
[2019-04-20 04:01] LABS: ABG BASE EXCESS -5.9 mmol/L (-2.0-3.0); ABG HCO3 16.8 mmol/L (22.0-26.0); ABG OXYGEN SATURATION 95.7 % (95-98); ABG PCO2 (T) 25.6 mmHg (35.0-45.0); ABG PH (T) 7.439 (7.350-7.450); ALLEN'S TEST pos; FMetHb 0.2 % (0.3-1.12); FO2Hb 95.5 % (94-100); PATIENT TEMPERATURE 37.8; TOTAL HEMOGLOBIN 10.3 G/dl (12.0-16.0)
--- NOTE | 2019-04-20 06:11 | NUR ---
Problems reprioritized. Patient report given, questions answered & plan of care reviewed with Jay ESPINOZA.
--- NOTE | 2019-04-20 06:15 | NUR ---
Patient in room CICU 2009. I have received report from OLGA Olivares and had the opportunity to ask questions and assume patient care.
[2019-04-20] MEDS: levoTHYROXINE 25mcg tablet PO SCH (07:22)
[2019-04-20] MEDS: zinc sulfate 220mg capsule PO SCH (07:22)
[2019-04-20] MEDS: aspirin 81mg tab.chew PO SCH (07:22)
[2019-04-20] MEDS: lactobacillus rhamnosus 10,000 MMU CELLS/CAPSULE PO SCH (07:22)
[2019-04-20] MEDS: fenofibrate 145mg tablet PO SCH (07:22)
[2019-04-20] MEDS: clopidogrel 75mg tablet PO SCH (07:22)
[2019-04-20] MEDS: piperacillin/tazo 3.375gm/50ml 50 ML IV SCH (07:23)
[2019-04-20] MEDS: pantoprazole 40 MG vial IV SCH (07:23)
[2019-04-20] MEDS: hydrocortisone sod succ/PF 100mg/2ml inj. IV SCH (07:23)
[2019-04-20] MEDS: pregabalin 75mg capsule PO SCH (07:23)
[2019-04-20] MEDS: linezolid 600mg/300ml PREMIX 300 ML IV SCH (07:23)
[2019-04-20] MEDS: docusate sodium 100mg/10ml UD cup PO SCH (07:25)
[2019-04-20] MEDS: venlafaxine XR 75mg capsule (Q24H) PO SCH (07:40)
[2019-04-20] MEDS: K, MAG and/or Phos replacement - Verify level? MC SCH (07:55)
[2019-04-20] MEDS ORDERED: LORazepam 2 mg/ml vial IV PRN (12:55)
[2019-04-20] MEDS: morphine 4 MG/ML inj SYRINge IV PRN ×2 (13:20→20:24)
--- NOTE | 2019-04-20 13:34 | NUR ---
Comfort care orders placed. Tube feeding, restraints, and TKO lines have been discontinued. 4 mg morphine sulfate IVP and 2 mg Ativan IVP administered.
--- NOTE | 2019-04-20 14:00 | NUR ---
Pt's Daughter is present. Levophed gtt discontinued. Pt extubated to comfort care.
--- NOTE | 2019-04-20 18:10 | NUR ---
Problems reprioritized. Patient report given, questions answered & plan of care reviewed with laury Bonner.
--- NOTE | 2019-04-20 18:15 | NUR ---
Problems reprioritized. Patient report given, questions answered & plan of care reviewed with day shift RN.
--- NOTE | 2019-04-20 20:24 | NUR ---
Morphine 4 mg administered per family request following repositioning. Patient responded to oral care with bitting down on oral swabs.
--- NOTE | 2019-04-20 22:21 | NUR ---
patient bathed and repositioned, linnens changed, oral care completed patient is without s/s of discomfort noted at this time.
[2019-04-21] VITALS (23 sets, daily range): BP systolic 64–87; BP diastolic 34–46
[2019-04-21] MEDS: morphine 4 MG/ML inj SYRINge IV PRN ×2 (04:34→17:16)
--- NOTE | 2019-04-21 09:41 | NUR ---
Comfort care: Will follow per policy. recommend: bowel care as needed Addendum: 04/21/19 [address] Amended: Links added. Addendum: 04/21/19 at [address] Marisela Bustos
--- NOTE | 2019-04-21 18:49 | NUR ---
Patient in room CICU 2009. I have received report from Jay ESPINOZA and had the opportunity to ask questions and assume patient care.
[2019-04-22] VITALS (15 sets, daily range): BP systolic 69–96; BP diastolic 33–74
[2019-04-22] MEDS: morphine 4 MG/ML inj SYRINge IV PRN ×5 (05:47→16:07)
--- NOTE | 2019-04-22 15:15 | NUR ---
Pt transferred to Neuro
--- NOTE | 2019-04-23 05:09 | NUR ---
RN IS TO DOCUMENT YES TO ALL APPLICABLE AREAS Pronouncement of : 1. Time Physician Notified: Ashvin Estrada NP 2. Date of : 04/23/2019 3. Time of : 444 4. DNR/Withdraw life support documented: 5. Monitor strip has been placed on chart: 6. Assessment process is of one-minute duration and includes following criteria: a) Patient is unresponsive to all stimuli: yes b) Pupils fixed and non-reactive: yes c) Auscultation of precordium reveals absence of heart tones:yes d) Auscultation of lungs reveals absence of breath sounds: yes e) Absence of blood pressure / all vital signs: yes f) QRS complexes are not present on monitor / EKG strip: g) Pacer spikes without capture:yes 4. Comments:
--- NOTE | 2019-04-23 06:20 | NUR ---
home here to get patient, signature in chart on memorandum
--- NOTE | 2019-04-23 06:36 | NUR ---
gave report to OLGA Lang
== END 2019-04-23 06:25 | disposition expired | DRG 174 ==
LOC: ER 17:52 → CICU 2S 20:20 → MED 3N 04-13 17:32 → CICU 2S 04-14 11:04 → ORTHO 4S 04-22 15:21
PROVIDERS: ADMIT Internal Medicine Critical Care Medicine; ATTEND Internal Medicine Critical Care Medicine
PROC: 5A2204Z Restoration of Cardiac Rhythm, Single (ICD-10-PCS; 2019-04-08)
PROC: 3E02340 Introduction of Influenza Vaccine into Muscle, Percutaneous Approach (ICD-10-PCS; 2019-04-09)
PROC: 30233N1 Transfusion of Nonautologous Red Blood Cells into Peripheral Vein, Percutaneous Approach (ICD-10-PCS; 2019-04-12)
PROC: 027034Z Dilation of Coronary Artery, One Artery with Drug-eluting Intraluminal Device, Percutaneous Approach (ICD-10-PCS; principal; 2019-04-15)
PROC: 4A023N6 Measurement of Cardiac Sampling and Pressure, Right Heart, Percutaneous Approach (ICD-10-PCS; 2019-04-15)
PROC: B2111ZZ Fluoroscopy of Multiple Coronary Arteries using Low Osmolar Contrast (ICD-10-PCS; 2019-04-15)
PROC: 02HV33Z Insertion of Infusion Device into Superior Vena Cava, Percutaneous Approach (ICD-10-PCS; 2019-04-16)
PROC: B548ZZA Ultrasonography of Superior Vena Cava, Guidance (ICD-10-PCS; 2019-04-16)
PROC: 5A1945Z Respiratory Ventilation, 24-96 Consecutive Hours (ICD-10-PCS; 2019-04-17)
PROC: 0BH17EZ Insertion of Endotracheal Airway into Trachea, Via Natural or Artificial Opening (ICD-10-PCS; 2019-04-17)
PROC: 5A1D70Z Performance of Urinary Filtration, Intermittent, Less than 6 Hours Per Day (ICD-10-PCS; 2019-04-17)
PROC: 30233K1 Transfusion of Nonautologous Frozen Plasma into Peripheral Vein, Percutaneous Approach (ICD-10-PCS; 2019-04-18)
DX: I21.19 ST elevation (STEMI) myocardial infarction involving other coronary artery of inferior wall (principal); J96.00 Acute respiratory failure, unspecified whether with hypoxia or hypercapnia; R57.0 Cardiogenic shock; I47.2 Ventricular tachycardia; N17.9 Acute kidney failure, unspecified; E11.22 Type 2 diabetes mellitus with diabetic chronic kidney disease; E11.51 Type 2 diabetes mellitus with diabetic peripheral angiopathy without gangrene; E03.9 Hypothyroidism, unspecified; E66.9 Obesity, unspecified; F17.210 Nicotine dependence, cigarettes, uncomplicated; G25.81 Restless legs syndrome; G47.33 Obstructive sleep apnea (adult) (pediatric); I13.0 Hypertensive heart and chronic kidney disease with heart failure and stage 1 through stage 4 chronic kidney disease, or unspecified chronic kidney disease; I27.20 Pulmonary hypertension, unspecified; I47.1 Supraventricular tachycardia; I50.9 Heart failure, unspecified; J44.9 Chronic obstructive pulmonary disease, unspecified; M10.9 Gout, unspecified; F32.9 Major depressive disorder, single episode, unspecified; Z51.5 Encounter for palliative care; N18.9 Chronic kidney disease, unspecified; Z66 Do not resuscitate; Z79.02 Long term (current) use of antithrombotics/antiplatelets; I25.2 Old myocardial infarction; Z79.4 Long term (current) use of insulin; Z79.82 Long term (current) use of aspirin; Z82.49 Family history of ischemic heart disease and other diseases of the circulatory system; Z86.73 Personal history of transient ischemic attack (TIA), and cerebral infarction without residual deficits; Z87.442 Personal history of urinary calculi; Z95.5 Presence of coronary angioplasty implant and graft; Z88.2 Allergy status to sulfonamides; Z23 Encounter for immunization; Z68.34 Body mass index [BMI] 34.0-34.9, adult
CPT/HCPCS: 36415; 36430; 36556; 36600; 71045; 76700; 76937; 80053; 80069; 80076; 82140; 82272; 82330; 82550; 82570; 82803; 82810; 82948; 83036; 83540; 83550; 83605; 83735; 83880; 83935; 84100; 84132; 84134; 84300; 84484; 84540; 84560; 85014; 85018; 85025; 85027; 85379; 85384; 85610; 85730; 86885; 86900; 86901; 86920; 87040; 87070; 87077; 87081; 90935; 92950; 93005; 93306; 93308; 93456; 94002; 94003; 94640; 94660; 94760; 96374; 97161; 97530; 97535; 99291; A4620; A6258; A9270; C1725; C1751; C1769; C1874; C1894; C9113; C9606; E1594; G0257; G0378; J0282; J1160; J1250; J1644; J1720; J1756; J1815; J1940; J2001; J2020; J2060; J2150; J2250; J2270; J2310; J2543; J2930; J3010; J3246; J3430; J3475; J3480; J3490; J7030; J7040; J7050; J7060; P9016; P9047; P9059; Q2037; Q4081; Q9967